=== PATIENT | male | born 1955 | race Caucasian/White ===

== ENCOUNTER 2016-07-16 10:29 | Inpatient (IN) | payer OTHER ==
[2016-07-16 10:37] VITALS: BMI 27.2
--- NOTE | 2016-07-16 10:49 | PDOC ---
History of Present Illness - General History Source: Patient, EMS Exam Limitations: No Limitations - History of Present Illness Initial Comments: 07/16/16 11:03 The patient is a 60 year old male, from [facility], with a significant past medical history of Type 2 diabetes(on lantus) HTN, neuropathy, cervical spinal stenosis, CKD (RTA4), and depression who presents to the ED, via EMS, s/ p loss of consciousness. The patient reports a blood sugar level of 94 this morning and was given lantus. Later the patient reports he was sitting in his chair waiting to get breakfast when he had a sudden onset of dizziness and loss consciousness. As per EMS, the patient had a blood sugar level of 30 upon their arrival to [facility] was urnesponsive and was diaphoretic. EMS gave the patient a bag of D10 and the patient became more responsive. Patient reports right sided chest pain, tremors and stiffness, that started en route to the ED. The patient also reports a chronic cough in the evening, but it is not worsened than usual. Denies changes in vision. Denies neck pain or back pain. Denies shortness of breath or palpitations. Denies abdominal pain, nausea, vomiting, or diarrhea. Denies fevers or chills. Denies any other symptoms. <Leann Fan - Last Filed: 07/16/16 13:28> <Trang Butts - Last Filed: 07/16/16 21:13> <Galo Clark - Last Filed: 07/20/16 09:14> - General Chief Complaint: Blood Sugar Problem Stated Complaint: Altered Mental Status Time Seen by Provider: 07/16/16 10:38 Past History <Leann Fan - Last Filed: 07/16/16 13:28> <Trang Butts - Last Filed: 07/16/16 21:13> - Past Medical History Cardiac Disorders: Yes (CAD) Diabetes: Yes HTN: Yes Other medical history: renal tubular acidosis - Psycho/Social/Smoking Cessation Hx Suicidal Ideation: No Smoking History: Unknown if ever smoked Hx Alcohol Use: Yes (QUIT IN 2005) Substance Use Type: Alcohol Hx Substance Use Treatment: No <Galo Clark - Last Filed: 07/20/16 09:14> - Past Medical History Allergies/Adverse Reactions: Allergies Allergy/AdvReac Type Severity Reaction Status Date / Time No Known Drug Allergies Allergy Verified 03/03/16 09:26 Home Medications: Ambulatory Orders Amlodipine Besylate [Norvasc -] 10 mg PO DAILY 03/02/16 Calcitriol [Calcitriol -] 0.25 mcg PO DAILY 03/02/16 Clonidine HCl 0.1 mg PO TID 03/02/16 Furosemide [Lasix -] 40 mg PO DAILY 03/02/16 Gabapentin [Neurontin] 300 mg PO BID 03/02/16 Hypromellose 0.5% Opth Soln [Artificial Tears] 1 drop OU PRN PRN 03/02/16 Insulin Glargine,Hum.rec.anlog [Lantus Solostar PEN -] 36 units SQ DAILY Latanoprost 0.005% Eye Drops [Xalatan 0.005% Eye Drops -] 1 drop OU HS 03/02/16 Meclizine HCl [Antivert -] 12.5 mg PO PRN PRN 03/02/16 Multivitamins [Multivit ([facility] Formulary)] 1 tab PO DAILY 03/02/16 Pantoprazole Sodium [Protonix] 40 mg PO DAILY 03/02/16 Acetaminophen [Tylenol Extra Strength] 500 mg PO PRN PRN #0 03/03/16 Ammonium Lactate Cream [Lac-Hydrin 12% Cream -] 0.01 unit TP DAILY 07/16/16 Bacitracin - [Bacitracin Topical Ointment -] 1 applic TP DAILY 07/16/16 Duloxetine HCl [Cymbalta] 30 mg PO DAILY 07/16/16 Hydrocodone/Acetaminophen [Hydrocodon-Acetaminoph 7.5-325] 0 each PO Q6H MDD 4 07/16/16 Lactulose [Cephulac -] 30 ml PO DAILY 07/16/16 Linagliptin [Tradjenta] 5 mg PO DAILY 07/16/16 Sodium Polystyrene Sulfonate 15 gm PO DAILY 07/16/16 Synalar Ts 0.01% Kit 0.01 drop TP DAILY 07/16/16 Review of Systems - Review of Systems Able to Perform ROS?: Yes Comments:: 07/16/16 11:03 CONSTITUTIONAL: No reported: Fever, Chills, Diaphoresis, Generalized Weakness, Malaise, Loss of Appetite HEENT: No reported: Rhinorrhea, Nasal Congestion, Throat Pain, Throat Swelling, Difficulty Swallowing, Mouth Swelling, Ear Pain, Eye Pain, Visual Changes CARDIOVASCULAR: + chest pain No reported: Palpitations, Irregular Heart Rate, Lightheadedness, Peripheral Edema RESPIRATORY: +chronic evening cough No reported: Shortness of Breath, SOB with Exertion, Orthopnea, Wheezing, Stridor, Hemoptysis GASTROINTESTINAL: No reported: Abdominal pain, Abdominal Distension, Nausea, Vomiting, Diarrhea, Constipation, Melena, Hematochezia GENITOURINARY: No reported: Dysuria, Frequency, Urgency, Hesitancy, Flank Pain, Genital Pain MUSCULOSKELETAL: No reported: Myalgia, Arthralgia, Joint Swelling, Back pain, Neck Pain SKIN: No reported: Rash, Itching, Pallor HEMEATOLOGIC/IMMUNOLOGIC: No reported: Easy Bleeding, Easy Bruising, Lymphadenopathy, Frequent infections ENDOCRINE: No reported: Unexplained Weight Gain, Unexplained Weight Loss, Heat Intolerance , Cold Intolerance NEUROLOGIC: + loss of consciousness, tremors No reported: Headache, Focal Weakness, Paresthesias, Vertigo, Lightheadedness, Unsteady Gait, Seizure, Mental Status Changes, Incontinence PSYCHIATRIC: No reported: Anxiety, Depression All Other Systems: Reviewed and Negative <Leann Fan - Last Filed: 07/16/16 13:28> *Physical Exam - Vital Signs Last Vital Signs Temp Pulse Resp BP Pulse Ox 98.4 F 80 18 165/80 100 07/16/16 10:33 07/16/16 10:33 07/16/16 10:33 07/16/16 10:33 07/16/16 10:33 - Physical Exam Comments: 07/16/16 11:04 GENERAL: The patient is awake, alert, and fully oriented, Nontoxic - in no acute distress. HEAD: Normocephalic, atraumatic. EYES: extraocular movements intact, sclera anicteric, conjunctiva clear, pupils 2mm bilaterally. ENT: Normal voice, Moist mucous membranes. NECK: Normal range of motion, supple LUNGS: Breath sounds equal, clear to auscultation bilaterally. No wheezes, no rhonchi, no rales. HEART: Regular rate and rhythm, normal S1 and S2 without murmur, rub or gallop. ABDOMEN: Soft, nontender, normoactive bowel sounds. No guarding, no rebound. . No CVA tenderness EXTREMITIES: atrophy of intrinsic hand muscles R>L, R foot drop (brace in place) , NEUROLOGICAL: No facial assymetry, Normal speech, tremulous, PSYCH: Normal mood, normal affect. SKIN: Warm, Dry, normal turgor, <Leann Fan - Last Filed: 07/16/16 13:28> - Vital Signs Last Vital Signs Temp Pulse Resp BP Pulse Ox 97.7 F 73 19 163/89 97 07/16/16 19:49 07/16/16 19:49 07/16/16 19:49 07/16/16 19:49 07/16/16 19:49 <Trang Butts - Last Filed: 07/16/16 21:13> - Vital Signs Last Vital Signs Temp Pulse Resp BP Pulse Ox 98.4 F 80 18 165/80 100 07/16/16 10:33 07/16/16 10:33 07/16/16 10:33 07/16/16 10:33 07/16/16 10:33 <Galo Clark - Last Filed: 07/20/16 09:14> Heart Score/ECG Review - ECG Impressions Comment:: 07/16/16 11:04 Twelve-lead EKG was performed and reviewed by me. There is normal sinus rhythm with a normal rate. Rate of 75 The axis is normal. Q waves in lead 3 T wave inversion in aVL 07/16/16 16:49 Twelve-lead EKG was performed and reviewed by me. There is normal sinus rhythm with a normal rate. Rate of 75 The axis is normal. T wave inversion in aVL No significant changes when compared with prior EKG <Galo Clark - Last Filed: 07/20/16 09:14> ED Treatment Course - LABORATORY CBC & Chemistry Diagram: 07/16/16 10:43 07/16/16 10:43 - ADDITIONAL ORDERS Additional order review: 07/16/16 10:43 RBC 4.66 MCV 95.3 MCHC 32.9 RDW 13.8 MPV 10.1 Neutrophils % 69.2 Lymphocytes % 20.7 Monocytes % 7.2 Eosinophils % 2.4 Basophils % 0.5 - RADIOLOGY Radiograph Interpretation: 07/16/16 11:09 RAD/CHEST X-RAY PORTABLE Impression: No evidence of active pulmonary disease. Reported by: Marin Gonzales <Leann Fan - Last Filed: 07/16/16 13:28> - LABORATORY CBC & Chemistry Diagram: 07/16/16 10:43 07/16/16 10:43 - ADDITIONAL ORDERS Additional order review: Laboratory Results 07/16/16 07/16/16 07/16/16 20:21 17:00 12:19 INR Sodium Potassium Chloride Carbon Dioxide Anion Gap BUN Creatinine Creat Clearance w eGFR POC Glucometer [phone] Random Glucose Calcium Magnesium Total Bilirubin AST ALT Alkaline Phosphatase Creatine Kinase 140 Creatine Kinase Index CK-MB (CK-2) CK-MB (CK-2) Rel Index Troponin I 0.18 H D Total Protein Albumin 07/16/16 07/16/16 07/16/16 10:43 10:43 10:43 INR 0.97 Sodium Potassium Chloride Carbon Dioxide Anion Gap BUN Creatinine Creat Clearance w eGFR POC Glucometer Random Glucose Calcium Magnesium 2.2 Total Bilirubin AST ALT Alkaline Phosphatase Creatine Kinase Creatine Kinase Index CK-MB (CK-2) CK-MB (CK-2) Rel Index Cancelled Troponin I Total Protein Albumin 07/16/16 10:43 INR Sodium 141 Potassium 3.4 L Chloride 103 Carbon Dioxide 25 Anion Gap 13 BUN 31 H Creatinine 2.9 H Creat Clearance w eGFR 22.31 POC Glucometer Random Glucose 75 Calcium 8.5 Magnesium Total Bilirubin 0.4 AST 19 ALT 22 Alkaline Phosphatase 89 Creatine Kinase 151 Creatine Kinase Index 1.4 CK-MB (CK-2) 2.264 CK-MB (CK-2) Rel Index Troponin I < 0.02 Total Protein 8.0 Albumin 4.0 07/16/16 07/16/16 07/16/16 20:21 12:19 10:43 RBC 4.66 MCV 95.3 MCHC 32.9 RDW 13.8 MPV 10.1 Neutrophils % 69.2 Lymphocytes % 20.7 Monocytes % 7.2 Eosinophils % 2.4 Basophils % 0.5 POC Glucometer [phone] - Medications Given in the ED: ED Medications Discontinued Medications Generic Name Dose Route Start Last Admin Trade Name Freq PRN Reason Stop Dose Admin Aspirin 162 mg 07/16/16 18:14 07/16/16 18:27 Asa - PO 07/16/16 18:15 162 mg ONCE ONE Administration <Trang Butts - Last Filed: 07/16/16 21:13> - LABORATORY CBC & Chemistry Diagram: 07/18/16 06:02 07/20/16 05:35 - RADIOLOGY Radiology Studies Ordered: Category Date Time Status CHEST X-RAY PORTABLE* [RAD] Stat Radiology 07/16/16 10:44 Ordered <Galo Clark - Last Filed: 07/20/16 09:14> Medical Decision Making - Medical Decision Making 07/16/16 13:28 Case discussed with Jayne Leigh at 12:40. <Leann Fan - Last Filed: 07/16/16 13:28> - Medical Decision Making 07/16/16 10:47 60y M hx of spinal stenosis, dm2, depression, glaucoma, RTA4, presents with episode of nonresponsiveness. Per EMS and patient report, the patient was found unresponsive this morning, upon EMS arrival, his BGM was 30 and he was diaphoretic and responded to D10. The patient was noted to be mildly hypoxic to 93% on RA and he does complain of a chornic night cough but isnt really worse than usual, the pt did have some R sided chest pain that started enrout to the hospital. On exam the pt is alert/oriented, had some chronic atrophy of his intrinsic hand muscles. Exam otherwise unremarakble. differential for the patients ams - likely hypoglycemia, unclear trigger -?no infectious complaints - but will send a UA, will ck trops, ekg, labs, cxr will monitor bgm 07/16/16 12:43 The pts blood work is notable for cr of 2.9 - ua/tox pending pts bgm is holding up case dw dr. Del Rio (PMD) states pt has ckd and his cr is in the 2-3 range will obtain 2nd trop, and repeat bgm - if normal, will d/c without patient management 07/16/16 18:13 second 2kg unchanged trop trending higher, at 0.18 will admit to obs for further management currently cp free <Galo Clark - Last Filed: 07/20/16 09:14> *DC/Admit/Observation/Transfer - Attestations Scribe Attestion: 07/16/16 11:04 Documentation prepared by Leann Fan, acting as emergency medical technician basic for Galo Clark MD <Leann Fan - Last Filed: 07/16/16 13:28> - Discharge Dispostion Admit: Yes <Trang Butts - Last Filed: 07/16/16 21:13> <Galo Clark - Last Filed: 07/20/16 09:14> Diagnosis at time of Disposition: Chest pain, CKD (chronic kidney disease) Diabetes mellitus Qualifiers: Diabetes mellitus type: type 2 Diabetes mellitus complication status: without complication Diabetes mellitus rat exterminator insulin use: without rat exterminator use Qualified Code(s): E11.9 - Type 2 diabetes mellitus without complications - Referrals
[2016-07-16 10:57] LABS: BASOPHIL 0.5 % (0-2.0); EOSINOPHIL 2.4 % (0-4.5); MCH 31.4 pg (25.7-33.7); MCHC 32.9 g/dl (32.0-35.9); MEAN CELL VOLUME 95.3 fl (80-96); MEAN PLT VOLUME 10.1 fl (7.5-11.1); NEUTROPHILS 69.2 % (42.8-82.8); PLATELET COUNT 160 K/MM3 (134-434); RDW 13.8 % (11.9-15.9); WHITE BLOOD COUNT 8.5 K/mm3 (4.0-10.0)
[2016-07-16 11:12] LABS: INR 0.97 (0.82-1.09); PROTHROMBIN TIME (PATIENT) 10.7 SEC (9.98-11.88)
--- NOTE | 2016-07-16 11:45 | EKG ---
Test Reason : Blood Pressure : / mmHG Vent. Rate : 075 BPM Atrial Rate : 075 BPM P-R Int : 168 ms QRS Dur : 094 ms QT Int : 416 ms P-R-T Axes : 042 009 096 degrees QTc Int : 464 ms NORMAL SINUS RHYTHM INFERIOR INFARCT , AGE UNDETERMINED ABNORMAL ECG NO PREVIOUS ECGS AVAILABLE Confirmed by MING MALIK MD ([id number]) on 07/16/2016 11:45:16 AM Referred By: Confirmed By:MING MALIK MD
[2016-07-16 11:48] LABS: ANION GAP 13 (8-16); CALCIUM 8.5 mg/dL (8.5-10.1); CO2 25 mmol/L (21-32); CREATININE 2.9 mg/dL (0.7-1.3); GLUCOSE,RANDOM 75 mg/dL (74-106); SGOT/AST 19 U/L (15-37); SGPT/ALT 22 U/L (12-78)
[2016-07-16 11:51] LABS: ALK PHOS 89 U/L (45-117); BILIRUBIN,TOTAL 0.4 mg/dL (0.2-1.0); TROPONIN I < 0.02 ng/ml (0.00-0.05)
[2016-07-16 18:07] LABS: TROPONIN I 0.18 ng/ml (0.00-0.05)
[2016-07-16] MEDS ORDERED: ASPIRIN 81 MG CHEWABLE TABLETS PO ONE (18:14)
[2016-07-16] MEDS ORDERED: ASPIRIN COATED 81 MG TABLET.EC ONE (18:23)
--- NOTE | 2016-07-16 19:49 | HP ---
CHIEF COMPLAINT: Unresponsive, Chest Pain PCP: Dr. Essence Del Rio [phone] HCP: Sharon Maldonado (sister) [phone] HISTORY OF PRESENT ILLNESS: This is a 60 y/o male with a past medical history of IDDM, HTN, CKD (RTA4), Cervical Spinal Stenosis, Neuropathy, R- Foot Drop, Atrophy, Depression. Who presents to the emergency department from [facility] unresponsive, FS 30, D10 given by EMS.The patient reports having a blood sugar level of 94 this morning and was given lantus. Later the patient reports he was sitting in his chair waiting to get breakfast when he had a sudden onset of dizziness and loss consciousness. The patient reports having left sided chest/rib pain x 1 month worse when he coughs, he reports using bengay with some relief. Patient reports having a non-productive dry cough, without subjective fever or chills. Patient denies SOB, AP, N/V/D, constipation, dysuria ER course was notable for: (1) Trop 0.02~ 0.18 (2) EKG- NSR 75bpm, inferior infarct, age undetermined (3) Glucose 75 Recent Travel: None PAST MEDICAL HISTORY: IDDM HTN CKD (RTA4) Cervical Spinal Stenosis Neuropathy Depression PAST SURGICAL HISTORY: R- heel Social History: Smoking: Former 2005 Alcohol: None Drugs: None Resides in Assisted Living Facility Family History: Father: Diabetes age 65 Mother: Arthritis age 81 Allergies No Known Drug Allergies Allergy (Verified 03/03/16 09:26) HOME MEDICATIONS: Home Medications Medication Instructions Recorded Amlodipine Besylate [Norvasc -] 10 mg PO DAILY 03/02/16 Calcitriol [Calcitriol -] 0.25 mcg PO DAILY 03/02/16 Clonidine HCl 0.1 mg PO TID 03/02/16 Furosemide [Lasix -] 40 mg PO DAILY 03/02/16 Gabapentin [Neurontin] 300 mg PO BID 03/02/16 Hypromellose 0.5% Opth Soln 1 drop OU PRN PRN 03/02/16 [Artificial Tears] Insulin Glargine,Hum.rec.anlog 36 units SQ DAILY 03/02/16 [Lantus Solostar PEN -] Latanoprost 0.005% Eye Drops 1 drop OU HS 03/02/16 [Xalatan 0.005% Eye Drops -] Meclizine HCl [Antivert -] 12.5 mg PO PRN PRN 03/02/16 Multivitamins [Multivit ([facility] 1 tab PO DAILY 03/02/16 Formulary)] Pantoprazole Sodium [Protonix] 40 mg PO DAILY 03/02/16 Acetaminophen [Tylenol Extra 500 mg PO PRN PRN #0 03/03/16 Strength] Ammonium Lactate Cream [Lac-Hydrin 0.01 unit TP DAILY 07/16/16 12% Cream -] Bacitracin - [Bacitracin Topical 1 applic TP DAILY 07/16/16 Ointment -] Duloxetine HCl [Cymbalta] 30 mg PO DAILY 07/16/16 Hydrocodone/Acetaminophen 0 each PO Q6H MDD 4 07/16/16 [Hydrocodon-Acetaminoph 7.5-325] Lactulose [Cephulac -] 30 ml PO DAILY 07/16/16 Linagliptin [Tradjenta] 5 mg PO DAILY 07/16/16 Sodium Polystyrene Sulfonate 15 gm PO DAILY 07/16/16 Synalar Ts 0.01% Kit 0.01 drop TP DAILY 07/16/16 REVIEW OF SYSTEMS CONSTITUTIONAL: Absent: fever, chills, diaphoresis, generalized weakness, malaise, loss of appetite, weight change HEENT: Absent: rhinorrhea, nasal congestion, throat pain, throat swelling, difficulty swallowing, mouth swelling, ear pain, eye pain, visual changes CARDIOVASCULAR: chest pain Absent: syncope, palpitations, irregular heart rate, lightheadedness, peripheral edema RESPIRATORY: cough Absent: shortness of breath, dyspnea with exertion, orthopnea, wheezing, stridor , hemoptysis GASTROINTESTINAL: Absent: abdominal pain, abdominal distension, nausea, vomiting, diarrhea, constipation, melena, hematochezia GENITOURINARY: Absent: dysuria, frequency, urgency, hesitancy, hematuria, flank pain, genital pain MUSCULOSKELETAL: Absent: myalgia, arthralgia, joint swelling, back pain, neck pain SKIN: Absent: rash, itching, pallor HEMATOLOGIC/IMMUNOLOGIC: Absent: easy bleeding, easy bruising, lymphadenopathy, frequent infections ENDOCRINE: Absent: unexplained weight gain, unexplained weight loss, heat intolerance, cold intolerance NEUROLOGIC: dizziness, unresponsive Absent: headache, focal weakness or paresthesias, unsteady gait, seizure, mental status changes, bladder or bowel incontinence PSYCHIATRIC: Absent: anxiety, depression, suicidal or homicidal ideation, hallucinations. PHYSICAL EXAMINATION Vital Signs - 24 hr 07/16/16 07/16/16 10:31 10:33 Temperature 98.4 F Pulse Rate 80 Respiratory 18 Rate Blood Pressure 165/80 O2 Sat by Pulse 97 100 Oximetry (%) GENERAL: Awake, alert, and fully oriented, in no acute distress. HEAD: Normal with no signs of trauma. EYES: Pupils equal, round and reactive to light, extraocular movements intact, sclera anicteric, conjunctiva clear. No lid lag. EARS, NOSE, THROAT: Ears normal, nares patent, oropharynx clear without exudates. Moist mucous membranes. NECK: Normal range of motion, supple without lymphadenopathy, JVD, or masses. LUNGS: Breath sounds equal, clear to auscultation bilaterally. No wheezes, and no crackles. No accessory muscle use. HEART: Regular rate and rhythm, normal S1 and S2 without murmur, rub or gallop. reproducible left sided CP upon palpation ABDOMEN: Soft, nontender, not distended, normoactive bowel sounds, no guarding, no rebound, no masses. No hepatomegaly or splenomegaly. MUSCULOSKELETAL: Normal range of motion at all joints. No bony deformities or tenderness. No CVA tenderness. UPPER EXTREMITIES: 2+ pulses, warm, well-perfused. No cyanosis. No clubbing. No peripheral edema. LOWER EXTREMITIES: 2+ pulses, warm, well-perfused. No calf tenderness. No peripheral edema. NEUROLOGICAL: Cranial nerves II-XII intact. Normal speech. Gait not observed, + right foot drop. PSYCHIATRIC: Cooperative. Good eye contact. Appropriate mood and affect. SKIN: Warm, dry, normal turgor, no rashes or lesions noted, normal capillary refill. Laboratory Results - last 24 hr 07/16/16 07/16/16 07/16/16 10:43 10:43 10:43 WBC 8.5 RBC 4.66 Hgb 14.6 Hct 44.4 MCV 95.3 MCHC 32.9 RDW 13.8 Plt Count 160 MPV 10.1 Neutrophils % 69.2 Lymphocytes % 20.7 Monocytes % 7.2 Eosinophils % 2.4 Basophils % 0.5 INR 0.97 Sodium 141 Potassium 3.4 L Chloride 103 Carbon Dioxide 25 Anion Gap 13 BUN 31 H Creatinine 2.9 H Creat Clearance w eGFR 22.31 POC Glucometer Random Glucose 75 Calcium 8.5 Magnesium Total Bilirubin 0.4 AST 19 ALT 22 Alkaline Phosphatase 89 Creatine Kinase 151 Creatine Kinase Index 1.4 CK-MB (CK-2) 2.264 CK-MB (CK-2) Rel Index Troponin I < 0.02 Total Protein 8.0 Albumin 4.0 07/16/16 07/16/16 07/16/16 10:43 10:43 12:19 WBC RBC Hgb Hct MCV MCHC RDW Plt Count MPV Neutrophils % Lymphocytes % Monocytes % Eosinophils % Basophils % INR Sodium Potassium Chloride Carbon Dioxide Anion Gap BUN Creatinine Creat Clearance w eGFR POC Glucometer [phone] Random Glucose Calcium Magnesium 2.2 Total Bilirubin AST ALT Alkaline Phosphatase Creatine Kinase Creatine Kinase Index CK-MB (CK-2) CK-MB (CK-2) Rel Index Cancelled Troponin I Total Protein Albumin 07/16/16 17:00 WBC RBC Hgb Hct MCV MCHC RDW Plt Count MPV Neutrophils % Lymphocytes % Monocytes % Eosinophils % Basophils % INR Sodium Potassium Chloride Carbon Dioxide Anion Gap BUN Creatinine Creat Clearance w eGFR POC Glucometer Random Glucose Calcium Magnesium Total Bilirubin AST ALT Alkaline Phosphatase Creatine Kinase 140 Creatine Kinase Index CK-MB (CK-2) CK-MB (CK-2) Rel Index Troponin I 0.18 H D Total Protein Albumin ASSESSMENT/PLAN: 60 y/o male with a PMHx of: IDDM, HTN, HLD, CKD (RTA4),, Cervical Spinal Stenosis Neuropathy, R- Foot Drop, Atrophy. Placed in Tele Observation for Chest Pain r/o ACS, Elevated Troponin, Hypoglycemia for further evaluation of their emergent condition. Problem List - Problem (1) Chest pain Assessment/Plan: - r/o ACS - Telemetry - HEART Score 5 - Serial Enzymes - Appreciate Cardiology Consult - Asa given in ED - Continue Asa - BB - HgbA1C - Repeat EKG in am - Echo Code(s): R07.9 - CHEST PAIN, UNSPECIFIED (2) Hypoglycemia Assessment/Plan: - Likely secondary to medication - Given D10 in field - Glucose levels normalized - Monitor BGMs Code(s): E16.2 - HYPOGLYCEMIA, UNSPECIFIED (3) Diabetes mellitus Assessment/Plan: - BGMs - ISS - 1800 ADA Diet Code(s): E11.9 - TYPE 2 DIABETES MELLITUS WITHOUT COMPLICATIONS (4) HTN (hypertension) Assessment/Plan: - Monitor BP - Continue home meds - Low Na Diet - Monitor renal function Code(s): I10 - ESSENTIAL (PRIMARY) HYPERTENSION (5) Neuropathy due to type 2 diabetes mellitus Code(s): E11.40 - TYPE 2 DIABETES MELLITUS WITH DIABETIC NEUROPATHY, UNSP (6) Depression Assessment/Plan: - Continue home medication Code(s): F32.9 - MAJOR DEPRESSIVE DISORDER, SINGLE EPISODE, UNSPECIFIED (7) CKD (chronic kidney disease) Assessment/Plan: - at baseline 2.5-2.6 - renal US done 05/2016- reviewed - Monitor BMP Code(s): N18.9 - CHRONIC KIDNEY DISEASE, UNSPECIFIED (8) Cervical spinal stenosis Assessment/Plan: - Continue home med Code(s): M48.02 - SPINAL STENOSIS, CERVICAL REGION (9) DVT prophylaxis Assessment/Plan: - SCDs - Heparin SQ Code(s): [id number] - Visit type - Emergency Visit Emergency Visit: Yes ED Registration Date: 07/16/16 Care time: The patient presented to the Emergency Department on the above date and was hospitalized for further evaluation of their emergent condition. - New Patient This patient is new to me today: Yes Date on this admission: 07/16/16 - Critical Care Critical Care patient: No
[2016-07-16] MEDS ORDERED: INSULIN REGULAR HUMAN 100 UNITS/ML *VIAL ONE (20:44)
[2016-07-16] MEDS: INSULIN SLIDING SCALE (NOVOLOG) 1 VIAL SQ SCH (20:59)
[2016-07-17 00:41] LABS: URINE APPEARANCE CLEAR; URINE BILIRUBIN NEGATIVE (NEGATIVE); URINE BLOOD NEGATIVE (NEGATIVE); URINE COLOR STRAW; URINE GLUCOSE (UA) 3+ (NEGATIVE); URINE KETONE NEGATIVE (NEGATIVE); URINE LEUK ESTERASE NEGATIVE (NEGATIVE); URINE NITRITE NEGATIVE (NEGATIVE); URINE PROTEIN NEGATIVE (NEGATIVE); URINE UROBILINOGEN NEGATIVE E.U./dl (0.2-1.0)
[2016-07-17] MEDS ORDERED: ACETAMINOPHEN 500 MG TABLET (FP) PO PRN (00:50)
[2016-07-17] MEDS ORDERED: cloNIDine HCL 0.1 MG TABLET PO SCH ×2 (06:00→22:00)
[2016-07-17] MEDS: INSULIN SLIDING SCALE (NOVOLOG) 1 VIAL SQ SCH ×4 (06:32→22:11)
[2016-07-17 08:12] LABS: BASOPHIL 0.4 % (0-2.0); MCHC 33.6 g/dl (32.0-35.9); MEAN CELL VOLUME 95.3 fl (80-96); MEAN PLT VOLUME 10.1 fl (7.5-11.1); NEUTROPHILS 69.3 % (42.8-82.8); PLATELET COUNT 147 K/MM3 (134-434); RDW 13.7 % (11.9-15.9); WHITE BLOOD COUNT 7.8 K/mm3 (4.0-10.0)
[2016-07-17] MEDS: MULTIVITAMINS (DAILY MVI) TABLET (FP) PO SCH (09:02)
[2016-07-17] MEDS: PANTOPRAZOLE 40 MG TABLET (FP) PO SCH (09:03)
[2016-07-17] MEDS: GABAPENTIN 300 MG CAPSULE (FP) PO SCH ×2 (09:03→22:11)
[2016-07-17] MEDS: amLODIPine BESYLATE 10 MG TABLET (FP) PO SCH (09:04)
[2016-07-17] MEDS: FUROSEMIDE 40 MG TABLET (FP) PO SCH (09:04)
[2016-07-17] MEDS: DULoxetine HCL 30 MG CAPSULE.DR (FP) PO SCH (09:04)
[2016-07-17] MEDS: HEPARIN NA (PORCINE) 5,000 UNITS/ML 1ML VIAL SQ SCH ×2 (09:04→22:11)
[2016-07-17] MEDS: ASPIRIN 81 MG CHEWABLE TABLETS PO SCH (09:04)
[2016-07-17] MEDS: CALCITRIOL 0.25 MCG CAPSULE (FP) PO SCH (09:05)
[2016-07-17 10:16] LABS: TROPONIN I 0.13 ng/ml (0.00-0.05)
--- NOTE | 2016-07-17 10:46 | PN ---
Progress Note (short form) - Note Progress Note: Chief Complaint: Events noted, notes reviewed, Complaining of left sided chest pain, intermittent, denies any dyspnea History of Present Illness: Seen and examined on telemetry. Full consult - Current Medication List Current Medications Acetaminophen (Tylenol -) 500 mg PO Q6H PRN PRN Reason: PAIN Amlodipine Besylate (Norvasc -) 10 mg PO DAILY [facility] Last Admin: 07/17/16 09:04 Dose: 10 mg Aspirin (Asa -) 81 mg PO DAILY [facility] Last Admin: 07/17/16 09:04 Dose: 81 mg Bacitracin (Bacitracin -) 1 applic TP DAILY [facility] Calcitriol (Rocaltrol -) 0.25 mcg PO DAILY [facility] Last Admin: 07/17/16 09:05 Dose: 0.25 mcg Clonidine (Catapres -) 0.1 mg PO TID [facility] Last Admin: 07/17/16 06:09 Dose: 0.1 mg Duloxetine HCl (Cymbalta -) 30 mg PO DAILY [facility] Last Admin: 07/17/16 09:04 Dose: 30 mg Furosemide (Lasix -) 40 mg PO DAILY [facility] Last Admin: 07/17/16 09:04 Dose: 40 mg Gabapentin (Neurontin -) 300 mg PO BID [facility] Last Admin: 07/17/16 09:03 Dose: 300 mg Heparin Sodium (Porcine) (Heparin -) 5,000 unit SQ BID [facility] Last Admin: 07/17/16 09:04 Dose: 5,000 unit Insulin Aspart (Novolog Vial Sliding Scale -) 0 vial SQ ACHS [facility] PRN Reason: Protocol Last Admin: 07/17/16 06:32 Dose: Not Given Latanoprost (Xalatan 0.005% Eye Drops -) 1 drop OU HS [facility] Multivitamins/Minerals/Vitamin C (Tab-A-Vit -) 1 tab PO DAILY [facility] Last Admin: 07/17/16 09:02 Dose: 1 tab Pantoprazole Sodium (Protonix -) 40 mg PO DAILY [facility] Last Admin: 07/17/16 09:03 Dose: 40 mg - Review of Systems Cardiovascular: As noted above Respiratory: denies: Cough or Sputum Production Gastrointestinal: denies: Nausea, Vomiting, Diarrhea, Constipation or Abdominal Pain Musculoskeletal: No symptoms reported Neurological: Foot drop and spinal stenosis - Objective Vital Signs: Last Vital Signs Temp Pulse Resp BP Pulse Ox 98 F 70 16 144/68 98 07/17/16 09:30 07/17/16 09:30 07/17/16 09:30 07/17/16 09:30 07/16/16 23:35 Neck: Supple Negative JVD Cardiovascular: S1 S2 Regular Rate Rhythm Respiratory: Clear to A&P Gastrointestinal: Soft Benign Normal Bowel Sounds Ext: Negative Edema Labs: CBC, BMP 07/17/16 06:07 07/16/16 10:43 Hepatic Panel Total Bilirubin 0.4 mg/dL (0.2-1.0) 07/16/16 10:43 AST 19 U/L (15-37) 07/16/16 10:43 ALT 22 U/L (12-78) 07/16/16 10:43 Alkaline Phosphatase 89 U/L (45-117) 07/16/16 10:43 Albumin 4.0 g/dl (3.4-5.0) 07/16/16 10:43 Troponin, BNP 07/16/16 07/16/16 07/17/16 10:43 17:00 00:01 Troponin I < 0.02 0.18 H D 0.21 H 07/17/16 07/17/16 06:07 06:07 Troponin I 0.13 H D Cancelled Assessment/Plan ASSESSMENT: 1. Chest pain syndrome, CAD angina pectoris with borderline Troponin I elevation not indicative of ACS clinically, no EKG acute changes 2. Diastolic LV dysfunction with class 0-I NYHA classification LV failure 3. IDDM 4. HTN 5. Hypercholesterolemia 6. Cervical Spinal Stenosis 7. CKD 8. Neuropathy PLAN: 1. Add B-Blockers, Coreg 2. Continue Norvasc and Clonidine 3. Ideally should be on ACEI or ARBS unless contraindicated, pending renal function stabilization 4. Continue PO Lasix 5. Continue ASA 6. Echocardiography for evaluation of LV function 7. Pharmacologic MPI study to evaluate CAD/ischemia severity Aaliyah Light MD
[2016-07-17] MEDS: CARVEDILOL 6.25 MG TABLET (FP) PO SCH ×2 (11:30→22:11)
--- NOTE | 2016-07-17 12:14 | EKG ---
Test Reason : Blood Pressure : / mmHG Vent. Rate : 066 BPM Atrial Rate : 066 BPM P-R Int : 176 ms QRS Dur : 086 ms QT Int : 414 ms P-R-T Axes : 036 027 098 degrees QTc Int : 434 ms NORMAL SINUS RHYTHM POSSIBLE INFERIOR INFARCT , AGE UNDETERMINED ABNORMAL ECG WHEN COMPARED WITH ECG OF 16-JUL-2016 16:41, BORDERLINE CRITERIA FOR INFERIOR INFARCT ARE NOW PRESENT Confirmed by DINAH REGAN MD ([id number]) on 07/17/2016 12:14:05 PM Referred By: Confirmed By:DINAH REGAN MD
--- NOTE | 2016-07-17 12:21 | EKG ---
Test Reason : Blood Pressure : / mmHG Vent. Rate : 075 BPM Atrial Rate : 075 BPM P-R Int : 174 ms QRS Dur : 086 ms QT Int : 394 ms P-R-T Axes : 040 -06 091 degrees QTc Int : 439 ms NORMAL SINUS RHYTHM WITH SINUS ARRHYTHMIA ABNORMAL QRS-T ANGLE, CONSIDER PRIMARY T WAVE ABNORMALITY ABNORMAL ECG WHEN COMPARED WITH ECG OF 16-JUL-2016 10:50, CRITERIA FOR INFERIOR INFARCT ARE NO LONGER PRESENT Confirmed by DINAH REGAN MD ([id number]) on 07/17/2016 12:20:46 PM Referred By: Confirmed By:DINAH REGAN MD
[2016-07-17 12:32] LABS: CALCIUM 8.3 mg/dL (8.5-10.1); CREATININE 2.4 mg/dL (0.7-1.3); PHOSPHOROUS 2.5 mg/dL (2.5-4.9)
--- NOTE | 2016-07-17 13:59 | CONS ---
DATE OF CONSULTATION: 07/17/2016 Consultation requested by hospitalist. CHIEF COMPLAINT: Evaluation of chest discomfort, elevated troponin I. History was obtained from the patient. A 60-year-old male of descent, with known history of probable diastolic left ventricular dysfunction, with class 0 [place] [employer] classification left ventricular failure, hypertensive cardiovascular disease, insulin-dependent diabetes mellitus, hypercholesterolemia, cervical spinal stenosis, chronic kidney disease, peripheral neuropathy, right foot drop, who presented to [facility] with unresponsiveness, and he was noted to have hypoglycemia. The patient in addition was noted to have elevated troponin I. The patient has been complaining of left-sided chest wall discomfort, which has been noted for the last several days, exacerbated by cough or deep inspiration. The patient denied any dyspnea, orthopnea, paroxysmal nocturnal dyspnea, or peripheral edema. The patient denied any palpitations, dizziness, lightheadedness. The patient reports fatigue and tiredness. PAST MEDICAL HISTORY: Probable diastolic left ventricular dysfunction, with class 0 [place] [employer] classification left ventricular failure; hypertensive cardiovascular disease; diabetes mellitus; hypercholesterolemia; cervical spinal stenosis; chronic kidney disease; peripheral neuropathy. PAST SURGICAL HISTORY: Right heel surgery for management of an abscess. SOCIAL HISTORY: Prior history of tobacco abuse. FAMILY HISTORY: Positive coronary artery disease. ALLERGIES: No known medical allergies. MEDICAL THERAPY: At home included Norvasc 10 mg once a day, calcitriol of 0.25 mcg once a day, clonidine 0.1 mg 3 times a day, Lasix 40 mg once a day, Neurontin 300 mg twice a day, insulin as prescribed, meclizine 12.5-mg tablet as needed for benign positional vertigo, multivitamin 1 tablet once a day, Protonix 40 mg once a day, Cymbalta 30 mg once a day, hydrocodone/acetaminophen 7.5/325 mg-tablet 1 tablet every 4 hours as needed, Tradjenta 5 mg once a day. REVIEW OF SYSTEMS: Head and neck: Denies headache, photophobia, blurring of vision. Respiratory: No cough or sputum production. Cardiovascular: As noted above. Gastrointestinal: Denies nausea, vomiting, diarrhea, abdominal discomfort. Genitourinary: No symptoms reported. Musculoskeletal: Chest wall discomfort, as noted above. PHYSICAL EXAMINATION: Vital signs: Blood pressure is 144/68 mmHg; pulse rate is 70 beats per minute. Head and neck: Pupils equal and react to light and accommodation. Extraocular muscles are intact. Anicteric sclerae. Negative JVD. No bruit appreciated. Chest: Clear to auscultation and percussion. Cardiovascular: S1, S2 regular. No murmur, clicks, or gallops. Abdomen: Soft. Benign. Normoactive bowel sounds. Extremities: Diminished distal pulses. Bilateral femoral pulses 1+ to 2+. No calf tenderness. Electrocardiogram reveals sinus rhythm, with nonspecific T-wave abnormality, and nondiagnostic inferior Q wave. CBC reveals a white cell count of 7.8, hemoglobin 13.5, platelet count 147. Basic metabolic profile reveals sodium 141, potassium 3.4, BUN of 31, creatinine 2.9, glucose 75. Troponin initially less than 0.02; repeat 0.18, 0.21 and 0.13. ASSESSMENT: 1. Chest pain syndrome, coronary artery disease, angina pectoris, with borderline troponin I elevation. Not indicative of acute coronary syndrome, clinically, since there are no electrocardiographic changes, and the above-noted presentation is atypical. 2. Diastolic left ventricular dysfunction, with class 0 to 1 [place] [employer] classification left ventricular failure. 3. Insulin-dependent diabetes mellitus. 4. Hypertensive cardiovascular disease. 5. Hypercholesterolemia. 6. Cervical spinal stenosis. 7. Chronic kidney disease. 8. History of peripheral neuropathy. RECOMMENDATIONS: 1. Addition of beta-blockers, Coreg. 2. Continuation of Norvasc therapy. 3. Ideally, the patient should be on an JAZMYN inhibitor or angiotensin-receptor ashu therapy, unless it is absolutely contraindicated, pending renal function stabilization. 4. Continuation of clonidine therapy. 5. Continuation of Lasix therapy. 6. Continuation of aspirin therapy. 7. Echocardiography for evaluation of left ventricular size and function. 8. Pharmacologic myocardial perfusion imaging study for evaluation of coronary artery disease ischemic defect severity. Thank you for the kind referral. ANGELIKA DAHL M.D. HARINI/[id number]
[2016-07-17] MEDS: BACITRACIN 30 GM TUBE TOPICAL OINTMENT TP SCH (14:20)
--- NOTE | 2016-07-17 14:29 | PN ---
Progress Note (short form) - Note Progress Note: Subjective: The patient was seen at the bedside, he states he doesn't want to talk and asked me to leave the room. Current Medications Generic Name Dose Route Start Last Admin Trade Name Jesse PRN Reason Stop Dose Admin Acetaminophen 500 mg 07/17/16 00:50 Tylenol - PO Q6H PRN PAIN Amlodipine Besylate 10 mg 07/17/16 10:00 07/17/16 09:04 Norvasc - PO 10 mg DAILY [facility] Administration Aspirin 81 mg 07/17/16 10:00 07/17/16 09:04 Asa - PO 81 mg DAILY [facility] Administration Bacitracin 1 applic 07/17/16 10:00 Bacitracin - TP DAILY [facility] Calcitriol 0.25 mcg 07/17/16 10:00 07/17/16 09:05 Rocaltrol - PO 0.25 mcg DAILY [facility] Administration Carvedilol 6.25 mg 07/17/16 11:15 07/17/16 11:30 Coreg - PO 6.25 mg BID [facility] Administration Clonidine 0.1 mg 07/17/16 22:00 Catapres - PO BID [facility] Duloxetine HCl 30 mg 07/17/16 10:00 07/17/16 09:04 Cymbalta - PO 30 mg DAILY [facility] Administration Furosemide 40 mg 07/17/16 10:00 07/17/16 09:04 Lasix - PO 40 mg DAILY [facility] Administration Gabapentin 300 mg 07/17/16 10:00 07/17/16 09:03 Neurontin - PO 300 mg BID [facility] Administration Heparin Sodium (Porcine) 5,000 unit 07/17/16 10:00 07/17/16 09:04 Heparin - SQ 5,000 unit BID [facility] Administration Insulin Aspart 0 vial 07/16/16 22:00 07/17/16 11:28 Novolog Vial Sliding Scale - SQ 4 units ACHS [facility] Administration Protocol Latanoprost 1 drop 07/17/16 22:00 Xalatan 0.005% Eye Drops - OU HS [facility] Multivitamins/Minerals/Vitamin C 1 tab 07/17/16 10:00 07/17/16 09:02 Tab-A-Vit - PO 1 tab DAILY [facility] Administration Pantoprazole Sodium 40 mg 07/17/16 10:00 07/17/16 09:03 Protonix - PO 40 mg DAILY [facility] Administration Objective: Vital Signs Period Temp Pulse Resp BP Sys/Crowell Pulse Ox Last 24 Hr 97.7 F-98.3 F 70-78 16-19 137-163/62-89 96-98 Physical Exam: Patient refused CBCD WBC 7.8 K/mm3 (4.0-10.0) 07/17/16 06:07 RBC 4.21 M/mm3 (4.00-5.60) 07/17/16 06:07 Hgb 13.5 GM/dL (11.7-16.9) 07/17/16 06:07 Hct 40.1 % (35.4-49) 07/17/16 06:07 MCV 95.3 fl (80-96) 07/17/16 06:07 MCHC 33.6 g/dl (32.0-35.9) 07/17/16 06:07 RDW 13.7 % (11.9-15.9) 07/17/16 06:07 Plt Count 147 K/MM3 (134-434) 07/17/16 06:07 MPV 10.1 fl (7.5-11.1) 07/17/16 06:07 CMP Sodium 143 mmol/L (136-145) 07/17/16 06:07 Potassium 4.2 mmol/L (3.5-5.1) D 07/17/16 06:07 Chloride 109 mmol/L (98-107) H 07/17/16 06:07 Carbon Dioxide 23 mmol/L (21-32) 07/17/16 06:07 Anion Gap 11 (8-16) 07/17/16 06:07 BUN 28 mg/dL (7-18) H 07/17/16 06:07 Creatinine 2.4 mg/dL (0.7-1.3) H 07/17/16 06:07 Creat Clearance w eGFR 22.31 (>60) 07/16/16 10:43 Random Glucose 149 mg/dL (74-106) H D 07/17/16 06:07 Calcium 8.3 mg/dL (8.5-10.1) L 07/17/16 06:07 Total Bilirubin 0.4 mg/dL (0.2-1.0) 07/16/16 10:43 AST 19 U/L (15-37) 07/16/16 10:43 ALT 22 U/L (12-78) 07/16/16 10:43 Alkaline Phosphatase 89 U/L (45-117) 07/16/16 10:43 Total Protein 8.0 g/dl (6.4-8.2) 07/16/16 10:43 Albumin 4.0 g/dl (3.4-5.0) 07/16/16 10:43 CARDIAC ENZYMES Creatine Kinase 156 IU/L (39-308) 07/17/16 06:07 Troponin I 0.13 ng/ml (0.00-0.05) H D 07/17/16 06:07 Assessment: This is a 60 year old male with PMHx of IDDM, HTN, CKD (RTA4), cervical spinal stenosis, neuropathy, R- Foot Drop, atrophy, depression who presented to the ED after being found unresponsive with a BGM of 30 (responded to D10). Plan: 1) Cardiology: Chest pain - Trops elevated, however trending down. Per cardiology, not indicative of ACS clinically. No EKG acute changes - F/u ECHO - F/u pharmacologic MPI Diastolic LV dysfunction - Continue Carvedilol - Continue Lasix - Continue Norvasc - Continue ASA - Appreciate cardiology consult HTN - As above 2) : CKD - Baseline Cr 2.5-2.6 - Cr today 2.4 - Continue to monitor 3) Endocrine: IDDM - Period of hypoglycemia requiring D10 prior to ED arrival - BGM ACHS - ISS ACHS - Patient takes Glargine 36u sq daily at home, will hold for now and monitor novolog requirements 4) F/E/N: - Monitor electrolytes - Sodium controlled diet 5) Prophylaxis: - OOB ambulating - Heparin 5,000u sq bid 6) Dispo: - Requires continued inpatient care CODE STATUS: FULL CODE Visit type - Emergency Visit Emergency Visit: Yes ED Registration Date: 07/16/16 Care time: The patient presented to the Emergency Department on the above date and was hospitalized for further evaluation of their emergent condition. - New Patient This patient is new to me today: Yes Date on this admission: 07/17/16 - Critical Care Critical Care patient: No
[2016-07-17] MEDS: LATANOPROST 0.005% OPHTH SOLN 2.5ML BOTTLE OU SCH (22:11)
[2016-07-18] MEDS: INSULIN SLIDING SCALE (NOVOLOG) 1 VIAL SQ SCH ×4 (06:06→22:31)
[2016-07-18 08:18] LABS: BASOPHIL 0.4 % (0-2.0); EOSINOPHIL 5.7 % (0-4.5); MCH 31.6 pg (25.7-33.7); MEAN CELL VOLUME 95.6 fl (80-96); MEAN PLT VOLUME 10.4 fl (7.5-11.1); NEUTROPHILS 58.7 % (42.8-82.8); PLATELET COUNT 145 K/MM3 (134-434); RDW 13.7 % (11.9-15.9); WHITE BLOOD COUNT 5.6 K/mm3 (4.0-10.0)
[2016-07-18 09:09] LABS: ALBUMIN 3.5 g/dl (3.4-5.0); BILIRUBIN,TOTAL 0.6 mg/dL (0.2-1.0); CALCIUM 8.7 mg/dL (8.5-10.1); CREATININE 2.5 mg/dL (0.7-1.3); TOT PROT 7.1 g/dl (6.4-8.2)
--- NOTE | 2016-07-18 09:57 | PN ---
Progress Note (short form) - Note Progress Note: Chief Complaint: Events noted, notes reviewed, continues to report vague left sided chest pain, intermittent, denies any dyspnea History of Present Illness: Seen and examined on telemetry. Events noted, notes reviewed, continues to report vague left sided chest pain, intermittent, denies any dyspnea Plan to proceed with echocardiography and MPI study in AM - Current Medication List Current Medications Acetaminophen (Tylenol -) 500 mg PO Q6H PRN PRN Reason: PAIN Amlodipine Besylate (Norvasc -) 10 mg PO DAILY [facility] Last Admin: 07/17/16 09:04 Dose: 10 mg Aspirin (Asa -) 81 mg PO DAILY [facility] Last Admin: 07/17/16 09:04 Dose: 81 mg Bacitracin (Bacitracin -) 1 applic TP DAILY [facility] Last Admin: 07/17/16 14:20 Dose: 1 applic Calcitriol (Rocaltrol -) 0.25 mcg PO DAILY [facility] Last Admin: 07/17/16 09:05 Dose: 0.25 mcg Carvedilol (Coreg -) 6.25 mg PO BID [facility] Last Admin: 07/17/16 22:11 Dose: 6.25 mg Clonidine (Catapres -) 0.1 mg PO BID [facility] Last Admin: 07/17/16 22:11 Dose: 0.1 mg Duloxetine HCl (Cymbalta -) 30 mg PO DAILY [facility] Last Admin: 07/17/16 09:04 Dose: 30 mg Furosemide (Lasix -) 40 mg PO DAILY [facility] Last Admin: 07/17/16 09:04 Dose: 40 mg Gabapentin (Neurontin -) 300 mg PO BID [facility] Last Admin: 07/17/16 22:11 Dose: 300 mg Heparin Sodium (Porcine) (Heparin -) 5,000 unit SQ BID [facility] Last Admin: 07/17/16 22:11 Dose: 5,000 unit Insulin Aspart (Novolog Vial Sliding Scale -) 0 vial SQ ACHS [facility] PRN Reason: Protocol Last Admin: 07/18/16 06:06 Dose: 4 units Latanoprost (Xalatan 0.005% Eye Drops -) 1 drop OU HS [facility] Last Admin: 07/17/16 22:11 Dose: 1 drp Multivitamins/Minerals/Vitamin C (Tab-A-Vit -) 1 tab PO DAILY [facility] Last Admin: 07/17/16 09:02 Dose: 1 tab Pantoprazole Sodium (Protonix -) 40 mg PO DAILY [facility] Last Admin: 07/17/16 09:03 Dose: 40 mg - Review of Systems Cardiovascular: As noted above Respiratory: denies: Cough or Sputum Production Gastrointestinal: denies: Nausea, Vomiting, Diarrhea, Constipation or Abdominal Pain Musculoskeletal: No symptoms reported Neurological: Foot drop and spinal stenosis - Objective Vital Signs: Last Vital Signs Temp Pulse Resp BP Pulse Ox 98.4 F 85 20 139/66 96 07/18/16 06:00 07/18/16 08:14 07/18/16 08:14 07/18/16 08:14 07/17/16 21:00 Neck: Supple Negative JVD Cardiovascular: S1 S2 Regular Rate Rhythm Respiratory: Clear to A&P Gastrointestinal: Soft Benign Normal Bowel Sounds Ext: Negative Edema Labs: CBC, BMP 07/18/16 06:02 07/18/16 06:02 INR, PTT INR 0.97 (0.82-1.09) 07/16/16 10:43 Troponin, BNP 07/17/16 07/17/16 06:07 06:07 Troponin I 0.13 H D Cancelled Assessment/Plan ASSESSMENT: 1. Chest pain syndrome, CAD angina pectoris with borderline Troponin I elevation not indicative of ACS clinically, no acute EKG changes 2. Diastolic LV dysfunction with class 0-I NYHA classification LV failure 3. HTN 4. IDDM 5. Hypercholesterolemia 6. Cervical Spinal Stenosis 7. CKD 8. Neuropathy PLAN: 1. Continue Coreg and titrate dosage as tolerated, hemodynamics permitting 2. Continue Norvasc and Clonidine (down titrate) 3. Ideally should be on ACEI or ARBS unless contraindicated, pending renal function improvement and stabilization 4. Continue PO Lasix 5. Continue ASA 6. Echocardiography for evaluation of LV function 7. Pharmacologic MPI study to evaluate CAD/ischemia severity Aaliyah Light MD
--- NOTE | 2016-07-18 09:58 | PN ---
Progress Note (short form) - Note Progress Note: Subjective: The patient was seen at the bedside, he states he did not sleep well last night because it was cold in his room and that he is tired. Current Medications Generic Name Dose Route Start Last Admin Trade Name Freq PRN Reason Stop Dose Admin Acetaminophen 500 mg 07/17/16 00:50 Tylenol - PO Q6H PRN PAIN Amlodipine Besylate 10 mg 07/17/16 10:00 07/17/16 09:04 Norvasc - PO 10 mg DAILY [facility] Administration Aspirin 81 mg 07/17/16 10:00 07/17/16 09:04 Asa - PO 81 mg DAILY [facility] Administration Bacitracin 1 applic 07/17/16 10:00 07/17/16 14:20 Bacitracin - TP 1 applic DAILY [facility] Administration Calcitriol 0.25 mcg 07/17/16 10:00 07/17/16 09:05 Rocaltrol - PO 0.25 mcg DAILY [facility] Administration Carvedilol 6.25 mg 07/17/16 11:15 07/17/16 22:11 Coreg - PO 6.25 mg BID [facility] Administration Clonidine 0.1 mg 07/17/16 22:00 07/17/16 22:11 Catapres - PO 0.1 mg BID [facility] Administration Duloxetine HCl 30 mg 07/17/16 10:00 07/17/16 09:04 Cymbalta - PO 30 mg DAILY [facility] Administration Furosemide 40 mg 07/17/16 10:00 07/17/16 09:04 Lasix - PO 40 mg DAILY [facility] Administration Gabapentin 300 mg 07/17/16 10:00 07/17/16 22:11 Neurontin - PO 300 mg BID [facility] Administration Heparin Sodium (Porcine) 5,000 unit 07/17/16 10:00 07/17/16 22:11 Heparin - SQ 5,000 unit BID [facility] Administration Insulin Aspart 0 vial 07/16/16 22:00 07/18/16 06:06 Novolog Vial Sliding Scale - SQ 4 units ACHS [facility] Administration Protocol Latanoprost 1 drop 07/17/16 22:00 07/17/16 22:11 Xalatan 0.005% Eye Drops - OU 1 drp HS [facility] Administration Multivitamins/Minerals/Vitamin C 1 tab 07/17/16 10:00 07/17/16 09:02 Tab-A-Vit - PO 1 tab DAILY [facility] Administration Pantoprazole Sodium 40 mg 07/17/16 10:00 07/17/16 09:03 Protonix - PO 40 mg DAILY [facility] Administration Objective: Vital Signs Period Temp Pulse Resp BP Sys/Crowell Pulse Ox Last 24 Hr 97.6 F-98.4 F 58-85 16-20 116-148/66-88 96 Physical Exam: General: NAD, A&Ox3 Lungs: CTA bilaterally Heart: RRR, S1S2 Abd: Soft, non-tender, non-distended. Normoactive bowel sounds Ext: Warm, well-perfused. 2+ DP/PT bilaterally Neuro: Patient refused neuro exam CBCD WBC 5.6 K/mm3 (4.0-10.0) 07/18/16 06:02 RBC 4.36 M/mm3 (4.00-5.60) 07/18/16 06:02 Hgb 13.7 GM/dL (11.7-16.9) 07/18/16 06:02 Hct 41.7 % (35.4-49) 07/18/16 06:02 MCV 95.6 fl (80-96) 07/18/16 06:02 MCHC 33.0 g/dl (32.0-35.9) 07/18/16 06:02 RDW 13.7 % (11.9-15.9) 07/18/16 06:02 Plt Count 145 K/MM3 (134-434) 07/18/16 06:02 MPV 10.4 fl (7.5-11.1) 07/18/16 06:02 CMP Sodium 140 mmol/L (136-145) 07/18/16 06:02 Potassium 4.4 mmol/L (3.5-5.1) 07/18/16 06:02 Chloride 103 mmol/L (98-107) 07/18/16 06:02 Carbon Dioxide 28 mmol/L (21-32) D 07/18/16 06:02 Anion Gap 9 (8-16) 07/18/16 06:02 BUN 33 mg/dL (7-18) H 07/18/16 06:02 Creatinine 2.5 mg/dL (0.7-1.3) H 07/18/16 06:02 Creat Clearance w eGFR 26.48 (>60) 07/18/16 06:02 Random Glucose 215 mg/dL (74-106) H D 07/18/16 06:02 Calcium 8.7 mg/dL (8.5-10.1) 07/18/16 06:02 Total Bilirubin 0.6 mg/dL (0.2-1.0) D 07/18/16 06:02 AST 17 U/L (15-37) 07/18/16 06:02 ALT 19 U/L (12-78) 07/18/16 06:02 Alkaline Phosphatase 80 U/L (45-117) 07/18/16 06:02 Total Protein 7.1 g/dl (6.4-8.2) 07/18/16 06:02 Albumin 3.5 g/dl (3.4-5.0) 07/18/16 06:02 CARDIAC ENZYMES Creatine Kinase 156 IU/L (39-308) 07/17/16 06:07 Troponin I 0.13 ng/ml (0.00-0.05) H D 07/17/16 06:07 Assessment: This is a 60 year old male with PMHx of IDDM, HTN, CKD (RTA4), cervical spinal stenosis, neuropathy, R- Foot Drop, atrophy, depression who presented to the ED after being found unresponsive with a BGM of 30 (responded to D10). Plan: 1) Cardiology: Chest pain - Trops elevated, however trended down. Per cardiology, not indicative of ACS clinically. No EKG acute changes - F/u ECHO - F/u pharmacologic MPI Diastolic LV dysfunction - Continue Carvedilol - Continue Lasix - Continue Norvasc - Continue ASA - Appreciate cardiology consult HTN - As above 2) : CKD - Baseline Cr 2.5-2.6 - Cr today 2.5 - Continue to monitor - F/u outpatient compliance professional 3) Endocrine: IDDM - Period of hypoglycemia requiring D10 prior to ED arrival - BGM ACHS - ISS ACHS - Patient takes Glargine 36u sq daily at home, will hold for now and monitor novolog requirements 4) F/E/N: - Monitor electrolytes - Sodium controlled diet 5) Prophylaxis: - OOB ambulating - Heparin 5,000u sq bid 6) Dispo: - Requires continued inpatient care CODE STATUS: FULL CODE Visit type - Emergency Visit Emergency Visit: Yes ED Registration Date: 07/16/16 Care time: The patient presented to the Emergency Department on the above date and was hospitalized for further evaluation of their emergent condition. - New Patient This patient is new to me today: No - Critical Care Critical Care patient: No
[2016-07-18] MEDS: DULoxetine HCL 30 MG CAPSULE.DR (FP) PO SCH (11:38)
[2016-07-18] MEDS: amLODIPine BESYLATE 10 MG TABLET (FP) PO SCH (11:38)
[2016-07-18] MEDS: MULTIVITAMINS (DAILY MVI) TABLET (FP) PO SCH (11:39)
[2016-07-18] MEDS: CALCITRIOL 0.25 MCG CAPSULE (FP) PO SCH (11:40)
[2016-07-18] MEDS: ASPIRIN 81 MG CHEWABLE TABLETS PO SCH (11:40)
[2016-07-18] MEDS: FUROSEMIDE 40 MG TABLET (FP) PO SCH (11:40)
[2016-07-18] MEDS: cloNIDine HCL 0.1 MG TABLET PO SCH (11:41)
[2016-07-18] MEDS: CARVEDILOL 12.5 MG TABLET (FP) PO SCH ×2 (11:41→22:30)
[2016-07-18] MEDS: PANTOPRAZOLE 40 MG TABLET (FP) PO SCH (11:42)
[2016-07-18] MEDS: HEPARIN NA (PORCINE) 5,000 UNITS/ML 1ML VIAL SQ SCH ×2 (11:42→22:30)
[2016-07-18] MEDS: GABAPENTIN 300 MG CAPSULE (FP) PO SCH ×2 (12:10→22:30)
[2016-07-18] MEDS: BACITRACIN 30 GM TUBE TOPICAL OINTMENT TP SCH (12:40)
[2016-07-18] MEDS ORDERED: PT OWN MED DRAWER 7, Y5N ONE (22:09)
[2016-07-18] MEDS: LATANOPROST 0.005% OPHTH SOLN 2.5ML BOTTLE OU SCH (22:31)
[2016-07-19] MEDS: INSULIN SLIDING SCALE (NOVOLOG) 1 VIAL SQ SCH ×4 (07:15→22:27)
[2016-07-19 08:35] LABS: CREATININE 2.9 mg/dL (0.7-1.3)
[2016-07-19] MEDS ORDERED: DEXTROSE 5% IVPB ONE (10:00)
[2016-07-19] MEDS ORDERED: WATER IVPB ONE (10:00)
[2016-07-19] MEDS: CARVEDILOL 12.5 MG TABLET (FP) PO SCH ×2 (10:00→22:19)
[2016-07-19] MEDS ORDERED: DIPYRIDAMOLE STRESS TEST IVPB ONE (10:00)
[2016-07-19] MEDS: PANTOPRAZOLE 40 MG TABLET (FP) PO SCH (12:59)
[2016-07-19] MEDS: MULTIVITAMINS (DAILY MVI) TABLET (FP) PO SCH (12:59)
[2016-07-19] MEDS: CALCITRIOL 0.25 MCG CAPSULE (FP) PO SCH (13:00)
[2016-07-19] MEDS: GABAPENTIN 300 MG CAPSULE (FP) PO SCH ×2 (13:00→22:20)
[2016-07-19] MEDS: BACITRACIN 30 GM TUBE TOPICAL OINTMENT TP SCH (13:01)
[2016-07-19] MEDS: ASPIRIN 81 MG CHEWABLE TABLETS PO SCH (13:01)
[2016-07-19] MEDS: DULoxetine HCL 30 MG CAPSULE.DR (FP) PO SCH (13:01)
[2016-07-19] MEDS: HEPARIN NA (PORCINE) 5,000 UNITS/ML 1ML VIAL SQ SCH ×2 (13:02→22:19)
[2016-07-19] MEDS: amLODIPine BESYLATE 10 MG TABLET (FP) PO SCH (14:00)
[2016-07-19] MEDS: FUROSEMIDE 40 MG TABLET (FP) PO SCH (14:00)
--- NOTE | 2016-07-19 14:59 | PN ---
Progress Note, Physician Chief Complaint: Events noted Complains of left sided chest pain Episode of hypotension and sweating prior to nuclear stress test Patient was given IV fluids and it resolved. ECG did not reveal any changes History of Present Illness: Patient was seen and examined. Awake and alert. Chart was reviewed As outlined. Episode of chest discomfort - Current Medication List Current Medications: Active Medications Acetaminophen (Tylenol -) 500 mg PO Q6H PRN PRN Reason: PAIN Last Admin: 07/18/16 12:40 Dose: 500 mg Amlodipine Besylate (Norvasc -) 10 mg PO DAILY [facility] Last Admin: 07/18/16 11:38 Dose: 10 mg Aspirin (Asa -) 81 mg PO DAILY [facility] Last Admin: 07/19/16 13:01 Dose: 81 mg Bacitracin (Bacitracin -) 1 applic TP DAILY [facility] Last Admin: 07/19/16 13:01 Dose: 1 applic Calcitriol (Rocaltrol -) 0.25 mcg PO DAILY [facility] Last Admin: 07/19/16 13:00 Dose: 0.25 mcg Carvedilol (Coreg -) 12.5 mg PO BID [facility] Last Admin: 07/18/16 22:30 Dose: 12.5 mg Clonidine (Catapres -) 0.1 mg PO DAILY [facility] Last Admin: 07/18/16 11:41 Dose: 0.1 mg Duloxetine HCl (Cymbalta -) 30 mg PO DAILY [facility] Last Admin: 07/19/16 13:01 Dose: 30 mg Furosemide (Lasix -) 40 mg PO DAILY [facility] Last Admin: 07/18/16 11:40 Dose: 40 mg Gabapentin (Neurontin -) 300 mg PO BID [facility] Last Admin: 07/19/16 13:00 Dose: 300 mg Heparin Sodium (Porcine) (Heparin -) 5,000 unit SQ BID [facility] Last Admin: 07/19/16 13:02 Dose: 5,000 unit Insulin Aspart (Novolog Vial Sliding Scale -) 0 vial SQ ACHS [facility] PRN Reason: Protocol Last Admin: 07/19/16 13:00 Dose: 8 units Latanoprost (Xalatan 0.005% Eye Drops -) 1 drop OU HS [facility] Last Admin: 07/18/16 22:31 Dose: 1 drp Multivitamins/Minerals/Vitamin C (Tab-A-Vit -) 1 tab PO DAILY [facility] Last Admin: 07/19/16 12:59 Dose: 1 tab Pantoprazole Sodium (Protonix -) 40 mg PO DAILY [facility] Last Admin: 07/19/16 12:59 Dose: 40 mg - Objective Vital Signs: Vital Signs Temperature 97.8 F 07/19/16 13:46 Pulse Rate 57 L 07/19/16 13:46 Respiratory Rate 20 07/19/16 13:46 Blood Pressure 132/60 07/19/16 13:46 O2 Sat by Pulse Oximetry (%) 98 07/19/16 09:00 Neck: Yes: Supple Cardiovascular: Yes: Regular Rate and Rhythm, S1, S2 Respiratory: Yes: Regular, CTA Bilaterally Gastrointestinal: Yes: Normal Bowel Sounds, Soft. No: Tenderness Edema: No Additional Findings/Remarks: - Review of Systems Cardiovascular: As noted above Respiratory: denies: Cough or Sputum Production Gastrointestinal: denies: Nausea, Vomiting, Diarrhea, Constipation or Abdominal Pain Musculoskeletal: No symptoms reported Neurological: Foot drop and spinal stenosis Labs: CBC, BMP 07/18/16 06:02 07/19/16 06:00 INR, PTT INR 0.97 (0.82-1.09) 07/16/16 10:43 Problem List - Problems (1) CKD (chronic kidney disease) Code(s): N18.9 - CHRONIC KIDNEY DISEASE, UNSPECIFIED (2) Chest pain Code(s): R07.9 - CHEST PAIN, UNSPECIFIED (3) Diabetes mellitus Code(s): E11.9 - TYPE 2 DIABETES MELLITUS WITHOUT COMPLICATIONS Qualifiers: Diabetes mellitus type: type 2 Diabetes mellitus complication status: without complication Diabetes mellitus terminal operator insulin use: without terminal operator use Qualified Code(s): E11.9 - Type 2 diabetes mellitus without complications (4) HTN (hypertension) Code(s): I10 - ESSENTIAL (PRIMARY) HYPERTENSION Qualifiers: Hypertension type: essential hypertension Qualified Code(s): I10 - Essential (primary) hypertension (5) Neuropathy due to type 2 diabetes mellitus Code(s): E11.40 - TYPE 2 DIABETES MELLITUS WITH DIABETIC NEUROPATHY, UNSP Assessment/Plan 1. Chest pain syndrome, CAD angina pectoris with borderline Troponin I elevation not indicative of ACS clinically 2. Diastolic LV dysfunction with class 0-I NYHA classification LV failure 3. HTN 4. IDDM 5. Hypercholesterolemia 6. Cervical Spinal Stenosis 7. CKD 8. Neuropathy PLAN: 1. Continue Coreg and titrate dosage as tolerated and continue Norvasc and Clonidine (down titrate) 2. Ideally should be on ACEI or ARB unless contraindicated, pending renal function improvement and stabilization 3. Continue PO Lasix 4. Continue ASA 5. Transthoracic echocardiography for evaluation of LV and valvular function 6. Pharmacologic nuclear myocardial perfusion study to evaluate CAD/ischemia severity Further plans are to follow Aydin Smalls MD
[2016-07-19 16:31] LABS: CALCIUM 8.6 mg/dL (8.5-10.1); CREATININE 3.3 mg/dL (0.7-1.3)
[2016-07-19] MEDS: cloNIDine HCL 0.1 MG TABLET PO SCH (17:48)
--- NOTE | 2016-07-19 18:22 | PN ---
[phone] has just returned from stress test at which he became hypotensive and had an episode of vomiting. IV fluid bolus given with improvement in his BP. He reports feeling better now. Awaiting ECHO report Stress test overall negative persantine stress, EF 67% Current Medications Generic Name Dose Route Start Last Admin Trade Name Freq PRN Reason Stop Dose Admin Acetaminophen 500 mg 07/17/16 00:50 07/18/16 12:40 Tylenol - PO 500 mg Q6H PRN Administration PAIN Amlodipine Besylate 10 mg 07/17/16 10:00 07/19/16 14:00 Norvasc - PO Not Given DAILY [facility] Aspirin 81 mg 07/17/16 10:00 07/19/16 13:01 Asa - PO 81 mg DAILY [facility] Administration Bacitracin 1 applic 07/17/16 10:00 07/19/16 13:01 Bacitracin - TP 1 applic DAILY [facility] Administration Calcitriol 0.25 mcg 07/17/16 10:00 07/19/16 13:00 Rocaltrol - PO 0.25 mcg DAILY [facility] Administration Carvedilol 12.5 mg 07/18/16 09:59 07/19/16 10:00 Coreg - PO Not Given BID [facility] Clonidine 0.1 mg 07/18/16 10:00 07/19/16 17:48 Catapres - PO Not Given DAILY [facility] Duloxetine HCl 30 mg 07/17/16 10:00 07/19/16 13:01 Cymbalta - PO 30 mg DAILY [facility] Administration Furosemide 40 mg 07/17/16 10:00 07/19/16 14:00 Lasix - PO Not Given DAILY [facility] Gabapentin 300 mg 07/17/16 10:00 07/19/16 13:00 Neurontin - PO 300 mg BID [facility] Administration Heparin Sodium (Porcine) 5,000 unit 07/17/16 10:00 07/19/16 13:02 Heparin - SQ 5,000 unit BID [facility] Administration Insulin Aspart 0 vial 07/16/16 22:00 07/19/16 17:12 Novolog Vial Sliding Scale - SQ 8 units ACHS [facility] Administration Protocol Insulin Detemir 10 units 07/19/16 22:00 Levemir Vial SQ HS [facility] Latanoprost 1 drop 07/17/16 22:00 07/18/16 22:31 Xalatan 0.005% Eye Drops - OU 1 drp HS [facility] Administration Multivitamins/Minerals/Vitamin C 1 tab 07/17/16 10:00 07/19/16 12:59 Tab-A-Vit - PO 1 tab DAILY [facility] Administration Pantoprazole Sodium 40 mg 07/17/16 10:00 07/19/16 12:59 Protonix - PO 40 mg DAILY [facility] Administration Objective: Vital Signs Period Temp Pulse Resp BP Sys/Crowell Pulse Ox Last 24 Hr 97.6 F-98.2 F 57-96 16-20 89-140/60-82 97-98 Physical Exam: General: NAD, A&Ox3 Lungs: CTA bilaterally Heart: RRR, S1S2 Abd: Soft, non-tender, non-distended. Normoactive bowel sounds Ext: Warm, well-perfused. 2+ DP/PT bilaterally Neuro: CN 2-12 intact CBCD WBC 5.6 K/mm3 (4.0-10.0) 07/18/16 06:02 RBC 4.36 M/mm3 (4.00-5.60) 07/18/16 06:02 Hgb 13.7 GM/dL (11.7-16.9) 07/18/16 06:02 Hct 41.7 % (35.4-49) 07/18/16 06:02 MCV 95.6 fl (80-96) 07/18/16 06:02 MCHC 33.0 g/dl (32.0-35.9) 07/18/16 06:02 RDW 13.7 % (11.9-15.9) 07/18/16 06:02 Plt Count 145 K/MM3 (134-434) 07/18/16 06:02 MPV 10.4 fl (7.5-11.1) 07/18/16 06:02 CMP Sodium 136 mmol/L (136-145) 07/19/16 15:15 Potassium 5.0 mmol/L (3.5-5.1) 07/19/16 15:15 Chloride 100 mmol/L (98-107) 07/19/16 15:15 Carbon Dioxide 24 mmol/L (21-32) 07/19/16 15:15 Anion Gap 12 (8-16) 07/19/16 15:15 BUN 45 mg/dL (7-18) H 07/19/16 15:15 Creatinine 3.3 mg/dL (0.7-1.3) H 07/19/16 15:15 Creat Clearance w eGFR 26.48 (>60) 07/18/16 06:02 Random Glucose 304 mg/dL (74-106) H* 07/19/16 15:15 Calcium 8.6 mg/dL (8.5-10.1) 07/19/16 15:15 Total Bilirubin 0.6 mg/dL (0.2-1.0) D 07/18/16 06:02 AST 17 U/L (15-37) 07/18/16 06:02 ALT 19 U/L (12-78) 07/18/16 06:02 Alkaline Phosphatase 80 U/L (45-117) 07/18/16 06:02 Total Protein 7.1 g/dl (6.4-8.2) 07/18/16 06:02 Albumin 3.5 g/dl (3.4-5.0) 07/18/16 06:02 CARDIAC ENZYMES Creatine Kinase 156 IU/L (39-308) 07/17/16 06:07 Troponin I 0.13 ng/ml (0.00-0.05) H D 07/17/16 06:07 Assessment: This is a 60 year old male with PMHx of IDDM, HTN, CKD (RTA4), cervical spinal stenosis, neuropathy, R- Foot Drop, atrophy, depression who presented to the ED after being found unresponsive with a BGM of 30 (responded to D10). Plan: 1) Cardiology: Chest pain - Trops elevated, however trended down. Per cardiology, not indicative of ACS clinically. No EKG acute changes - F/u ECHO (performed today) - Persantine stress overall negative. EF 67% Diastolic LV dysfunction - Continue Carvedilol - Continue Lasix - Continue Norvasc - Continue ASA - Appreciate cardiology consult HTN - As above 2) : CKD - Baseline Cr 2.5-2.6 - Cr today increasing 2.9->3.3 (patient reports urinating with no issues) - Called [facility] for outpatient redye hand information and to discuss outpatient creatinine - Monitor kidney function overnight, if continues to worsen, f/u kidney/bladder ultrasound, urine studies - F/u outpatient redye hand 3) Endocrine: IDDM - Period of hypoglycemia requiring D10 prior to ED arrival - BGM ACHS - ISS ACHS - Patient takes Glargine 36u sq daily at home, will start Levemir 10u sq qhs and monitor bgms 4) F/E/N: - Monitor electrolytes - Sodium controlled diet 5) Prophylaxis: - OOB ambulating - Heparin 5,000u sq bid 6) Dispo: - Requires continued inpatient care CODE STATUS: FULL CODE Visit type - Emergency Visit Emergency Visit: Yes ED Registration Date: 07/16/16 Care time: The patient presented to the Emergency Department on the above date and was hospitalized for further evaluation of their emergent condition. - New Patient This patient is new to me today: No - Critical Care Critical Care patient: No
[2016-07-19] MEDS ORDERED: INSULIN DETEMIR 100 UNITS/ML MDV SQ SCH (22:00)
[2016-07-19] MEDS ORDERED: PT OWN MED DRAWER 7, Y5N ONE (22:25)
[2016-07-19] MEDS: LATANOPROST 0.005% OPHTH SOLN 2.5ML BOTTLE OU SCH (22:27)
[2016-07-20] MEDS: INSULIN SLIDING SCALE (NOVOLOG) 1 VIAL SQ SCH ×4 (06:03→22:16)
[2016-07-20 07:50] LABS: CALCIUM 8.8 mg/dL (8.5-10.1); CREATININE 3.3 mg/dL (0.7-1.3)
--- NOTE | 2016-07-20 08:49 | PN ---
Progress Note (short form) - Note Progress Note: Chief Complaint: Events noted, notes reviewed, continues to report vague left sided chest pain, intermittent, denies any dyspnea History of Present Illness: Seen and examined on telemetry. Events noted, notes reviewed, continues to report vague left sided chest pain, intermittent, denies any dyspnea Echocardiography revealed normal LV size and function, with mild TR MPI study revealed inferior attenuation with normal LV function, LV EF of 67% - Current Medication List Current Medications Acetaminophen (Tylenol -) 500 mg PO Q6H PRN PRN Reason: PAIN Last Admin: 07/18/16 12:40 Dose: 500 mg Amlodipine Besylate (Norvasc -) 10 mg PO DAILY [facility] Last Admin: 07/19/16 14:00 Dose: Not Given Aspirin (Asa -) 81 mg PO DAILY [facility] Last Admin: 07/19/16 13:01 Dose: 81 mg Bacitracin (Bacitracin -) 1 applic TP DAILY [facility] Last Admin: 07/19/16 13:01 Dose: 1 applic Calcitriol (Rocaltrol -) 0.25 mcg PO DAILY [facility] Last Admin: 07/19/16 13:00 Dose: 0.25 mcg Carvedilol (Coreg -) 12.5 mg PO BID [facility] Last Admin: 07/19/16 22:19 Dose: 12.5 mg Clonidine (Catapres -) 0.1 mg PO DAILY [facility] Last Admin: 07/19/16 17:48 Dose: Not Given Duloxetine HCl (Cymbalta -) 30 mg PO DAILY [facility] Last Admin: 07/19/16 13:01 Dose: 30 mg Furosemide (Lasix -) 40 mg PO DAILY [facility] Last Admin: 07/19/16 14:00 Dose: Not Given Gabapentin (Neurontin -) 300 mg PO BID [facility] Last Admin: 07/19/16 22:20 Dose: 300 mg Heparin Sodium (Porcine) (Heparin -) 5,000 unit SQ BID [facility] Last Admin: 07/19/16 22:19 Dose: 5,000 unit Insulin Aspart (Novolog Vial Sliding Scale -) 0 vial SQ ACHS [facility] PRN Reason: Protocol Last Admin: 07/20/16 06:03 Dose: 6 units Insulin Detemir (Levemir Vial) 10 units SQ HS [facility] Last Admin: 07/19/16 22:27 Dose: 10 units Latanoprost (Xalatan 0.005% Eye Drops -) 1 drop OU HS [facility] Last Admin: 07/19/16 22:27 Dose: 1 drp Multivitamins/Minerals/Vitamin C (Tab-A-Vit -) 1 tab PO DAILY [facility] Last Admin: 07/19/16 12:59 Dose: 1 tab Pantoprazole Sodium (Protonix -) 40 mg PO DAILY [facility] Last Admin: 07/19/16 12:59 Dose: 40 mg - Review of Systems Cardiovascular: As noted above Respiratory: denies: Cough or Sputum Production Gastrointestinal: denies: Nausea, Vomiting, Diarrhea, Constipation or Abdominal Pain Musculoskeletal: No symptoms reported Neurological: Foot drop and spinal stenosis - Objective Vital Signs: Last Vital Signs Temp Pulse Resp BP Pulse Ox 98 F 72 18 112/54 98 07/20/16 05:52 07/20/16 05:52 07/20/16 05:52 07/20/16 05:52 07/19/16 21:00 Neck: Supple Negative JVD Cardiovascular: S1 S2 Regular Rate Rhythm Respiratory: Clear to A&P Gastrointestinal: Soft Benign Normal Bowel Sounds Ext: Negative Edema Labs: CBC, BMP 07/18/16 06:02 07/20/16 05:35 INR, PTT INR 0.97 (0.82-1.09) 07/16/16 10:43 Assessment/Plan ASSESSMENT: 1. Chest pain syndrome, CAD angina pectoris with borderline Troponin I elevation not indicative of ACS clinically, negative MPI study for medical management 2. Diastolic LV dysfunction with class 0-I NYHA classification LV failure 3. HTN 4. IDDM 5. Hypercholesterolemia 6. Cervical Spinal Stenosis 7. CKD 8. Neuropathy PLAN: 1. Continue Coreg 2. Continue Norvasc and Clonidine 3. Ideally should be on ACEI or ARBS unless contraindicated, pending renal function improvement and stabilization, can be done as outpatient 4. Continue PO Lasix 5. Continue ASA 6. May be D/C home from cardiovascular point of view Aaliyah Light MD
[2016-07-20] MEDS: MULTIVITAMINS (DAILY MVI) TABLET (FP) PO SCH (10:01)
[2016-07-20] MEDS: ASPIRIN 81 MG CHEWABLE TABLETS PO SCH (10:01)
[2016-07-20] MEDS: GABAPENTIN 300 MG CAPSULE (FP) PO SCH ×2 (10:01→22:15)
[2016-07-20] MEDS: DULoxetine HCL 30 MG CAPSULE.DR (FP) PO SCH (10:01)
[2016-07-20] MEDS: CARVEDILOL 12.5 MG TABLET (FP) PO SCH ×2 (10:01→22:15)
[2016-07-20] MEDS: amLODIPine BESYLATE 10 MG TABLET (FP) PO SCH (10:01)
[2016-07-20] MEDS: BACITRACIN 30 GM TUBE TOPICAL OINTMENT TP SCH (10:02)
[2016-07-20] MEDS: HEPARIN NA (PORCINE) 5,000 UNITS/ML 1ML VIAL SQ SCH ×2 (10:02→22:16)
[2016-07-20] MEDS: cloNIDine HCL 0.1 MG TABLET PO SCH (10:02)
[2016-07-20] MEDS: PANTOPRAZOLE 40 MG TABLET (FP) PO SCH (10:02)
[2016-07-20] MEDS: FUROSEMIDE 40 MG TABLET (FP) PO SCH (10:02)
[2016-07-20] MEDS: CALCITRIOL 0.25 MCG CAPSULE (FP) PO SCH (10:03)
[2016-07-20] MEDS ORDERED: LACTULOSE 20 GM/30 ML UDC (FOR ORAL USE ONLY) PO PRN (11:16)
[2016-07-20] MEDS ORDERED: LACTULOSE 20 GM/30 ML UDC (FOR ORAL USE ONLY) PO ONE (12:30)
[2016-07-20 12:52] LABS: BASOPHIL 0.5 % (0-2.0); EOSINOPHIL 3.5 % (0-4.5); MCH 31.7 pg (25.7-33.7); MCHC 32.6 g/dl (32.0-35.9); MEAN CELL VOLUME 97.1 fl (80-96); MEAN PLT VOLUME 10.2 fl (7.5-11.1); NEUTROPHILS 64.9 % (42.8-82.8); PLATELET COUNT 138 K/MM3 (134-434); RDW 13.8 % (11.9-15.9); WHITE BLOOD COUNT 6.4 K/mm3 (4.0-10.0)
[2016-07-20] MEDS ORDERED: LACTULOSE 20 GM/30 ML UDC (FOR ORAL USE ONLY) PO SCH (14:00)
--- NOTE | 2016-07-20 15:10 | PN ---
Physical Exam: SUBJECTIVE: Patient seen and examined. Reports dizzy spell just prior to my attending him. Tele monitor checked, no acute events noted. Pt reports he became dizzy while standing at the sink fixing his hair after getting up from the toilet. He had voided and had a BM at the time. Received a TC from lab, ammonia level 255, but is from 07/16. OBJECTIVE: Vital Signs - 24 hr 3 07/19/16 07/19/16 07/19/16 18:00 21:00 22:00 Temperature 97.7 F 97.8 F Pulse Rate 96 H 72 Respiratory 20 20 Rate Blood Pressure 109/66 140/89 O2 Sat by Pulse 98 Oximetry (%) 3 07/20/16 07/20/16 07/20/16 02:00 05:52 10:00 Temperature 98 F 97.0 F L Pulse Rate 68 72 76 Respiratory 20 18 18 Rate Blood Pressure 136/72 112/54 155/88 O2 Sat by Pulse Oximetry (%) Orthostatic vitals: layin/74, P65 sitting 124/83, P74 standing 79/51, P76 GENERAL: The patient is awake, alert, and fully oriented, in no acute distress. HEAD: Normal with no signs of trauma. EYES: PERRL, extraocular movements intact, sclera anicteric, conjunctiva clear. No ptosis. ENT: Ears normal, nares patent, oropharynx clear without exudates, moist mucous membranes. NECK: Trachea midline, full range of motion, supple. LUNGS: Breath sounds equal, clear to auscultation bilaterally, no wheezes, no crackles, no accessory muscle use. HEART: Regular rate and rhythm, S1, S2 without murmur, rub or gallop. ABDOMEN: Soft, nontender, nondistended, normoactive bowel sounds, no guarding, no rebound, no hepatosplenomegaly, no masses. EXTREMITIES: 2+ pulses, warm, well-perfused, no edema. NEUROLOGICAL: Cranial nerves II through XII grossly intact. Normal speech, gait not observed. PSYCH: Normal mood, normal affect. SKIN: Warm, dry, normal turgor, no rashes or lesions noted Laboratory Results - last 24 hr 3 07/19/16 07/19/16 07/19/16 15:15 15:36 22:21 WBC RBC Hgb Hct MCV MCHC RDW Plt Count MPV Neutrophils % Lymphocytes % Monocytes % Eosinophils % Basophils % Sodium 136 Potassium 5.0 Chloride 100 Carbon Dioxide 24 Anion Gap 12 BUN 45 H Creatinine 3.3 H POC Glucometer 333 209 Random Glucose 304 H* Calcium 8.6 3 07/20/16 07/20/16 07/20/16 05:35 06:01 12:14 WBC RBC Hgb Hct MCV MCHC RDW Plt Count MPV Neutrophils % Lymphocytes % Monocytes % Eosinophils % Basophils % Sodium 137 Potassium 4.4 Chloride 99 Carbon Dioxide 25 Anion Gap 13 BUN 47 H Creatinine 3.3 H POC Glucometer 264 247 Random Glucose 261 H Calcium 8.8 3 07/20/16 12:45 WBC 6.4 RBC 4.44 Hgb 14.1 Hct 43.1 MCV 97.1 H MCHC 32.6 RDW 13.8 Plt Count 138 MPV 10.2 Neutrophils % 64.9 Lymphocytes % 23.2 Monocytes % 7.9 Eosinophils % 3.5 Basophils % 0.5 Sodium Potassium Chloride Carbon Dioxide Anion Gap BUN Creatinine POC Glucometer Random Glucose Calcium Active Medications 3 Generic Name Dose Route Start Last Admin Trade Name Freq PRN Reason Stop Dose Admin Acetaminophen 500 mg 07/17/16 00:50 07/18/16 12:40 Tylenol - PO 500 mg Q6H PRN Administration PAIN Amlodipine Besylate 10 mg 07/17/16 10:00 07/20/16 10:01 Norvasc - PO 10 mg DAILY [facility] Administration Aspirin 81 mg 07/17/16 10:00 07/20/16 10:01 Asa - PO 81 mg DAILY [facility] Administration Bacitracin 1 applic 07/17/16 10:00 07/20/16 10:02 Bacitracin - TP 1 applic DAILY [facility] Administration Calcitriol 0.25 mcg 07/17/16 10:00 07/20/16 10:03 Rocaltrol - PO 0.25 mcg DAILY [facility] Administration Carvedilol 12.5 mg 07/18/16 09:59 07/20/16 10:01 Coreg - PO 12.5 mg BID [facility] Administration Clonidine 0.1 mg 07/18/16 10:00 07/20/16 10:02 Catapres - PO 0.1 mg DAILY [facility] Administration Duloxetine HCl 30 mg 07/17/16 10:00 07/20/16 10:01 Cymbalta - PO 30 mg DAILY [facility] Administration Furosemide 40 mg 07/17/16 10:00 07/20/16 10:02 Lasix - PO 40 mg DAILY [facility] Administration Gabapentin 300 mg 07/17/16 10:00 07/20/16 10:01 Neurontin - PO 300 mg BID [facility] Administration Heparin Sodium (Porcine) 5,000 unit 07/17/16 10:00 07/20/16 10:02 Heparin - SQ 5,000 unit BID [facility] Administration Insulin Aspart 0 vial 07/16/16 22:00 07/20/16 12:32 Novolog Vial Sliding Scale - SQ 4 units ACHS [facility] Administration Protocol Insulin Detemir 10 units 07/19/16 22:00 07/19/16 22:27 Levemir Vial SQ 10 units HS [facility] Administration Latanoprost 1 drop 07/17/16 22:00 07/19/16 22:27 Xalatan 0.005% Eye Drops - OU 1 drp HS [facility] Administration Multivitamins/Minerals/Vitamin C 1 tab 07/17/16 10:00 07/20/16 10:01 Tab-A-Vit - PO 1 tab DAILY [facility] Administration Pantoprazole Sodium 40 mg 07/17/16 10:00 07/20/16 10:02 Protonix - PO 40 mg DAILY [facility] Administration Echo 07/19/16: Interpretation Summary The left ventricle is normal in size LV syst function is normal No wall motion abnl Suggesion of impaired LV relaxation Mild mitral annular calcification mild tricuspid regurgitation no pericardial effusion ASSESSMENT/PLAN: This is a 60 year old male with PMHx of DM, HTN, CKD (RTA4), cervical spinal stenosis, neuropathy, R- Foot Drop, atrophy, depression who presented to the ED after being found unresponsive with a BGM of 30 (responded to D10). He also reported chest pain and thus was admitted for further evaluation. Orthostatic hypotension - dc clonidine, decrease norvasc to 5mg QD, maintain coreg for now - repeat orthostatics in AM. - cardiology consulted, aware of findings and in agreement with plan. DM - hypoglycemic episode resolved - restarted levemir 10u last night, BGM remain in 200s. Will increase to BID and follow sugars. (previously on lantus 36u) - cont novolog SS chest pain - ACS ruled out, stress test grossly normal - cont coreg, ASA CKD (RTA4) with JESSIE - baseline Cr 2.5-2.6 as per nurse at [facility], no improvement, renal consult ordered - hold lasix as recommended - sono as ordered. elevated ammonia level - doubt accurate given pt mental status is fine - repeat ordered stat Depression - cont home meds. FEN - tolerating po - monitor BMP in am - sodium/diabetic diet Dispo: Pt continues to require inpatient care. Visit type - Emergency Visit Emergency Visit: Yes ED Registration Date: 07/16/16 Care time: The patient presented to the Emergency Department on the above date and was hospitalized for further evaluation of their emergent condition. - New Patient This patient is new to me today: Yes Date on this admission: 07/20/16 - Critical Care Critical Care patient: No - Discharge Referral Referred to [facility] Med [facility].C[facility] No
--- NOTE | 2016-07-20 16:23 | CONSULT ---
Consult Consult Specialty:: Nephrology Reason for Consultation:: CKD - History of Present Illness Chief Complaint: initially presented s/p LOC History of Present Illness: Pt is a 60 year old male with pmhx of HTN, DM, CKD, liver disease, and depression who presented to the ER after LOC. He also remembers having chest pain. He had a cardiac workup while in the hospital. His creatinine however has been steadily rising. He says she does have history of kidney disease which he says is attributed to his DM. He has seen a pullboat engineer in the [place] in the past. He does not recall getting a kidney biopsy. He denies hematuria or dysuria. - History Source History Provided By: Patient, Medical Record - Past Medical History Cardio/Vascular: Yes: HTN Renal/: Yes: Renal Inusuff Endocrine: Yes: Diabetes Mellitus - Alcohol/Substance Use Hx Alcohol Use: Yes (QUIT IN 2005) - Smoking History Smoking history: Unknown if ever smoked Home Medications - Allergies Allergies/Adverse Reactions: Allergies Allergy/AdvReac Type Severity Reaction Status Date / Time No Known Drug Allergies Allergy Verified 03/03/16 09:26 - Home Medications Home Medications: Ambulatory Orders Amlodipine Besylate [Norvasc -] 10 mg PO DAILY 03/02/16 Calcitriol [Calcitriol -] 0.25 mcg PO DAILY 03/02/16 Clonidine HCl 0.1 mg PO TID 03/02/16 Furosemide [Lasix -] 40 mg PO DAILY 03/02/16 Gabapentin [Neurontin] 300 mg PO BID 03/02/16 Hypromellose 0.5% Opth Soln [Artificial Tears] 1 drop OU PRN PRN 03/02/16 Insulin Glargine,Hum.rec.anlog [Lantus Solostar PEN -] 36 units SQ DAILY Latanoprost 0.005% Eye Drops [Xalatan 0.005% Eye Drops -] 1 drop OU HS 03/02/16 Meclizine HCl [Antivert -] 12.5 mg PO PRN PRN 03/02/16 Multivitamins [Multivit ([facility] Formul[facility])] 1 tab PO DAILY 03/02/16 Pantoprazole Sodium [Protonix] 40 mg PO DAILY 03/02/16 Acetaminophen [Tylenol Extra Strength] 500 mg PO PRN PRN #0 03/03/16 Ammonium Lactate Cream [Lac-Hydrin 12% Cream -] 0.01 unit TP DAILY 07/16/16 Bacitracin - [Bacitracin Topical Ointment -] 1 applic TP DAILY 07/16/16 Duloxetine HCl [Cymbalta] 30 mg PO DAILY 07/16/16 Hydrocodone/Acetaminophen [Hydrocodon-Acetaminoph 7.5-325] 0 each PO Q6H MDD 4 07/16/16 Lactulose [Cephulac -] 30 ml PO DAILY 07/16/16 Linagliptin [Tradjenta] 5 mg PO DAILY 07/16/16 Sodium Polystyrene Sulfonate 15 gm PO DAILY 07/16/16 Synalar Ts 0.01% Kit 0.01 drop TP DAILY 07/16/16 Family Disease History - Family Disease History Family History: Denies Review of Systems - Review of Systems Constitutional: reports: No Symptoms Eyes: reports: No Symptoms HENT: reports: No Symptoms Neck: reports: No Symptoms Cardiovascular: reports: No Symptoms Respiratory: reports: No Symptoms Gastrointestinal: reports: No Symptoms Genitourinary: reports: No Symptoms Musculoskeletal: reports: No Symptoms Integumentary: reports: No Symptoms Neurological: reports: No Symptoms Endocrine: reports: No Symptoms Hematology/Lymphatic: reports: No Symptoms Psychiatric: reports: No Symptoms Physical Exam Vital Signs: Vital Signs Temperature 97.0 F L 07/20/16 10:00 Pulse Rate 76 07/20/16 10:00 Respiratory Rate 18 07/20/16 10:00 Blood Pressure 155/88 07/20/16 10:00 O2 Sat by Pulse Oximetry (%) 98 07/19/16 21:00 Constitutional: Yes: Calm Eyes: Yes: Conjunctiva Clear HENT: Yes: Atraumatic Neck: Yes: Supple Cardiovascular: Yes: S1, S2 Respiratory: Yes: CTA Bilaterally Gastrointestinal: Yes: Normal Bowel Sounds, Soft Renal/: Yes: WNL Musculoskeletal: Yes: WNL Edema: No Neurological: Yes: Oriented Psychiatric: Yes: Oriented Labs: CBC, BMP 07/20/16 12:45 07/20/16 05:35 Laboratory Tests 07/16/16 07/16/16 07/17/16 10:43 23:40 06:07 WBC Hgb MPV Creatinine 2.9 H 2.4 H Urine Color Straw Urine Appearance Clear Urine pH 6.0 Ur Specific [place] 1.005 Urine Protein Negative Urine Glucose (UA) 3+ H Urine Ketones Negative Urine Blood Negative Urine Nitrite Negative Urine Bilirubin Negative Urine Urobilinogen Negative Ur Leukocyte Esterase Negative 07/18/16 07/19/16 07/19/16 06:02 06:00 15:15 WBC Hgb MPV Creatinine 2.5 H 2.9 H 3.3 H Urine Color Urine Appearance Urine pH Ur Specific [place] Urine Protein Urine Glucose (UA) Urine Ketones Urine Blood Urine Nitrite Urine Bilirubin Urine Urobilinogen Ur Leukocyte Esterase 07/20/16 07/20/16 05:35 12:45 WBC 6.4 Hgb 14.1 MPV 10.2 Creatinine 3.3 H Urine Color Urine Appearance Urine pH Ur Specific [place] Urine Protein Urine Glucose (UA) Urine Ketones Urine Blood Urine Nitrite Urine Bilirubin Urine Urobilinogen Ur Leukocyte Esterase Problem List - Problems (1) CKD (chronic kidney disease) Code(s): N18.9 - CHRONIC KIDNEY DISEASE, UNSPECIFIED (2) Diabetes mellitus Code(s): E11.9 - TYPE 2 DIABETES MELLITUS WITHOUT COMPLICATIONS Qualifiers: Diabetes mellitus type: type 2 Diabetes mellitus complication status: without complication Diabetes mellitus terminal supervisor insulin use: without fci use Qualified Code(s): E11.9 - Type 2 diabetes mellitus without complications (3) HTN (hypertension) Code(s): I10 - ESSENTIAL (PRIMARY) HYPERTENSION Qualifiers: Hypertension type: essential hypertension Qualified Code(s): I10 - Essential (primary) hypertension Assessment/Plan Current Medications Generic Name Dose Route Start Last Admin Trade Name Freq PRN Reason Stop Dose Admin Acetaminophen 500 mg 07/17/16 00:50 07/18/16 12:40 Tylenol - PO 500 mg Q6H PRN Administration PAIN Amlodipine Besylate 10 mg 07/17/16 10:00 07/20/16 10:01 Norvasc - PO 10 mg DAILY KEVIN Administration Aspirin 81 mg 07/17/16 10:00 07/20/16 10:01 Asa - PO 81 mg DAILY KEVIN Administration Bacitracin 1 applic 07/17/16 10:00 07/20/16 10:02 Bacitracin - TP 1 applic DAILY KEVIN Administration Calcitriol 0.25 mcg 07/17/16 10:00 07/20/16 10:03 Rocaltrol - PO 0.25 mcg DAILY KEVIN Administration Carvedilol 12.5 mg 07/18/16 09:59 07/20/16 10:01 Coreg - PO 12.5 mg BID KEVIN Administration Clonidine 0.1 mg 07/18/16 10:00 07/20/16 10:02 Catapres - PO 0.1 mg DAILY KEVIN Administration Duloxetine HCl 30 mg 07/17/16 10:00 07/20/16 10:01 Cymbalta - PO 30 mg DAILY KEVIN Administration Furosemide 40 mg 07/17/16 10:00 07/20/16 10:02 Lasix - PO 40 mg DAILY KEVIN Administration Gabapentin 300 mg 07/17/16 10:00 07/20/16 10:01 Neurontin - PO 300 mg BID KEVIN Administration Heparin Sodium (Porcine) 5,000 unit 07/17/16 10:00 07/20/16 10:02 Heparin - SQ 5,000 unit BID KEVIN Administration Insulin Aspart 0 vial 07/16/16 22:00 07/20/16 12:32 Novolog Vial Sliding Scale - SQ 4 units ACHS KEVIN Administration Protocol Insulin Detemir 10 units 07/19/16 22:00 07/19/16 22:27 Levemir Vial SQ 10 units HS KEVIN Administration Latanoprost 1 drop 07/17/16 22:00 07/19/16 22:27 Xalatan 0.005% Eye Drops - OU 1 drp HS KEVIN Administration Multivitamins/Minerals/Vitamin C 1 tab 07/17/16 10:00 07/20/16 10:01 Tab-A-Vit - PO 1 tab DAILY KEVIN Administration Pantoprazole Sodium 40 mg 07/17/16 10:00 07/20/16 10:02 Protonix - PO 40 mg DAILY KEVIN Administration Impression 1. CKD 2. HTN 3. hyperlipidemia 4. r/o acs 5. DM Plan - unclear what pts baseline renal function is - can monitor for now and if stable will see as outpt - check bladder ultrasound - cont current meds - can hold lasix tomorrow until labs reviewed - put a call out to PMD - unclear what liver status is, he says he has a history of etoh abuse many years ago
--- NOTE | 2016-07-20 17:40 | EKG ---
Test Reason : Blood Pressure : / mmHG Vent. Rate : 056 BPM Atrial Rate : 056 BPM P-R Int : 136 ms QRS Dur : 080 ms QT Int : 436 ms P-R-T Axes : 018 008 081 degrees QTc Int : 420 ms SINUS BRADYCARDIA WHEN COMPARED WITH ECG OF 17-JUL-2016 02:53, T WAVE VARIATION Confirmed by MAEGAN ASH MD ([id number]) on 07/20/2016 5:40:01 PM Referred By: MAEGAN ASH Confirmed By:MAEGAN ASH MD
[2016-07-20] MEDS: INSULIN DETEMIR 100 UNITS/ML MDV SQ SCH (22:16)
[2016-07-20 23:25] LABS: URINE APPEARANCE CLEAR; URINE BILIRUBIN NEGATIVE (NEGATIVE); URINE BLOOD NEGATIVE (NEGATIVE); URINE COLOR STRAW; URINE GLUCOSE (UA) 1+ (NEGATIVE); URINE KETONE NEGATIVE (NEGATIVE); URINE LEUK ESTERASE NEGATIVE (NEGATIVE); URINE NITRITE NEGATIVE (NEGATIVE); URINE PROTEIN NEGATIVE (NEGATIVE); URINE UROBILINOGEN NEGATIVE E.U./dl (0.2-1.0)
[2016-07-20] MEDS: LATANOPROST 0.005% OPHTH SOLN 2.5ML BOTTLE OU SCH (23:45)
[2016-07-21] MEDS: INSULIN SLIDING SCALE (NOVOLOG) 1 VIAL SQ SCH ×4 (06:49→22:08)
[2016-07-21] MEDS: INSULIN DETEMIR 100 UNITS/ML MDV SQ SCH ×2 (06:49→22:07)
--- NOTE | 2016-07-21 08:17 | PN ---
Progress Note, Physician Chief Complaint: Events noted Denies chest pain History of Present Illness: Patient was seen and examined. Awake and alert. Chart was reviewed Denies chest pain, SOB or palpitations Echocardiography and nuclear myocardial perfusion imaging result noted. Orthostasis yesterday and medication was adjusted - Current Medication List Current Medications: Active Medications Acetaminophen (Tylenol -) 500 mg PO Q6H PRN PRN Reason: PAIN Last Admin: 07/18/16 12:40 Dose: 500 mg Amlodipine Besylate (Norvasc -) 5 mg PO DAILY [facility] Aspirin (Asa -) 81 mg PO DAILY [facility] Last Admin: 07/20/16 10:01 Dose: 81 mg Bacitracin (Bacitracin -) 1 applic TP DAILY [facility] Last Admin: 07/20/16 10:02 Dose: 1 applic Calcitriol (Rocaltrol -) 0.25 mcg PO DAILY [facility] Last Admin: 07/20/16 10:03 Dose: 0.25 mcg Carvedilol (Coreg -) 12.5 mg PO BID [facility] Last Admin: 07/20/16 22:15 Dose: 12.5 mg Duloxetine HCl (Cymbalta -) 30 mg PO DAILY [facility] Last Admin: 07/20/16 10:01 Dose: 30 mg Furosemide (Lasix -) 40 mg PO DAILY [facility] Last Admin: 07/20/16 10:02 Dose: 40 mg Gabapentin (Neurontin -) 300 mg PO BID [facility] Last Admin: 07/20/16 22:15 Dose: 300 mg Heparin Sodium (Porcine) (Heparin -) 5,000 unit SQ BID [facility] Last Admin: 07/20/16 22:16 Dose: 5,000 unit Insulin Aspart (Novolog Vial Sliding Scale -) 0 vial SQ ACHS [facility] PRN Reason: Protocol Last Admin: 07/21/16 06:49 Dose: 6 units Insulin Detemir (Levemir Vial) 10 units SQ BID@0700,2200 [facility] Last Admin: 07/21/16 06:49 Dose: 10 units Latanoprost (Xalatan 0.005% Eye Drops -) 1 drop OU HS [facility] Last Admin: 07/20/16 23:45 Dose: Not Given Multivitamins/Minerals/Vitamin C (Tab-A-Vit -) 1 tab PO DAILY [facility] Last Admin: 07/20/16 10:01 Dose: 1 tab Pantoprazole Sodium (Protonix -) 40 mg PO DAILY [facility] Last Admin: 07/20/16 10:02 Dose: 40 mg - Objective Vital Signs: Vital Signs Temperature 98.1 F 07/21/16 06:00 Pulse Rate 64 07/21/16 06:00 Respiratory Rate 18 07/21/16 06:00 Blood Pressure 136/75 07/21/16 06:00 O2 Sat by Pulse Oximetry (%) 94 L 07/20/16 21:00 Neck: Yes: Supple Cardiovascular: Yes: Regular Rate and Rhythm, S1, S2 Respiratory: Yes: CTA Bilaterally Gastrointestinal: Yes: Normal Bowel Sounds, Soft. No: Tenderness Edema: No Additional Findings/Remarks: - Review of Systems Cardiovascular: As noted above Respiratory: denies: Cough or Sputum Production Gastrointestinal: denies: Nausea, Vomiting, Diarrhea, Constipation or Abdominal Pain Musculoskeletal: No symptoms reported Neurological: Foot drop and spinal stenosis Labs: CBC, BMP 07/20/16 12:45 INR, PTT INR 0.97 (0.82-1.09) 07/16/16 10:43 Problem List - Problems (1) CKD (chronic kidney disease) Code(s): N18.9 - CHRONIC KIDNEY DISEASE, UNSPECIFIED (2) Chest pain Code(s): R07.9 - CHEST PAIN, UNSPECIFIED Qualifiers: Chest pain type: unspecified Qualified Code(s): R07.9 - Chest pain, unspecified (3) Diabetes mellitus Code(s): E11.9 - TYPE 2 DIABETES MELLITUS WITHOUT COMPLICATIONS Qualifiers: Diabetes mellitus type: type 2 Diabetes mellitus complication status: without complication Diabetes mellitus penitentiary insulin use: without terminal supervisor use Qualified Code(s): E11.9 - Type 2 diabetes mellitus without complications (4) HTN (hypertension) Code(s): I10 - ESSENTIAL (PRIMARY) HYPERTENSION Qualifiers: Hypertension type: essential hypertension Qualified Code(s): I10 - Essential (primary) hypertension (5) Neuropathy due to type 2 diabetes mellitus Code(s): E11.40 - TYPE 2 DIABETES MELLITUS WITH DIABETIC NEUROPATHY, UNSP Assessment/Plan 1. Chest pain syndrome, CAD angina pectoris with borderline Troponin I elevation not indicative of ACS clinically 2. Diastolic LV dysfunction with class 0-I NYHA classification LV failure 3. HTN 4. IDDM 5. Hypercholesterolemia 6. Cervical Spinal Stenosis 7. CKD 8. Neuropathy 9. Orthostasis PLAN: 1. Continue Coreg and titrate dosage as tolerated and continue Norvasc at a lower dose. Clonidine was stopped 2. Ideally should be on ACEI or ARB unless contraindicated, pending renal function improvement and stabilization and if BP permits 3. Continue PO Lasix as tolerated 4. Continue ASA 5. Cardiac testing result reviewed Further plans are to follow. If not orthostatic, discharge planning Aydin Smalls MD
[2016-07-21 08:30] LABS: CALCIUM 8.3 mg/dL (8.5-10.1)
[2016-07-21 08:36] LABS: CREATININE 3.1 mg/dL (0.7-1.3)
[2016-07-21] MEDS: GABAPENTIN 300 MG CAPSULE (FP) PO SCH ×2 (09:42→22:07)
[2016-07-21] MEDS: CARVEDILOL 12.5 MG TABLET (FP) PO SCH ×2 (09:42→22:07)
[2016-07-21] MEDS: MULTIVITAMINS (DAILY MVI) TABLET (FP) PO SCH (09:42)
[2016-07-21] MEDS: ASPIRIN 81 MG CHEWABLE TABLETS PO SCH (09:42)
[2016-07-21] MEDS: BACITRACIN 30 GM TUBE TOPICAL OINTMENT TP SCH (09:42)
[2016-07-21] MEDS: DULoxetine HCL 30 MG CAPSULE.DR (FP) PO SCH (09:42)
[2016-07-21] MEDS: PANTOPRAZOLE 40 MG TABLET (FP) PO SCH (09:42)
[2016-07-21] MEDS: CALCITRIOL 0.25 MCG CAPSULE (FP) PO SCH (09:43)
[2016-07-21] MEDS: HEPARIN NA (PORCINE) 5,000 UNITS/ML 1ML VIAL SQ SCH ×2 (09:43→22:07)
[2016-07-21] MEDS ORDERED: amLODIPine BESYLATE 5 MG TABLET (FP) PO SCH (10:00)
--- NOTE | 2016-07-21 12:15 | PN ---
Progress Note, Physician History of Present Illness: Pt seen and examined at bedside. He is awake and alert. He denies shortness of breath. - Current Medication List Current Medications: Active Medications Acetaminophen (Tylenol -) 500 mg PO Q6H PRN PRN Reason: PAIN Last Admin: 07/18/16 12:40 Dose: 500 mg Amlodipine Besylate (Norvasc -) 5 mg PO DAILY [facility] Last Admin: 07/21/16 09:42 Dose: 5 mg Aspirin (Asa -) 81 mg PO DAILY [facility] Last Admin: 07/21/16 09:42 Dose: 81 mg Bacitracin (Bacitracin -) 1 applic TP DAILY [facility] Last Admin: 07/21/16 09:42 Dose: 1 applic Calcitriol (Rocaltrol -) 0.25 mcg PO DAILY [facility] Last Admin: 07/21/16 09:43 Dose: 0.25 mcg Carvedilol (Coreg -) 12.5 mg PO BID [facility] Last Admin: 07/21/16 09:42 Dose: 12.5 mg Duloxetine HCl (Cymbalta -) 30 mg PO DAILY [facility] Last Admin: 07/21/16 09:42 Dose: 30 mg Furosemide (Lasix -) 40 mg PO DAILY [facility] Last Admin: 07/20/16 10:02 Dose: 40 mg Gabapentin (Neurontin -) 300 mg PO BID [facility] Last Admin: 07/21/16 09:42 Dose: 300 mg Heparin Sodium (Porcine) (Heparin -) 5,000 unit SQ BID [facility] Last Admin: 07/21/16 09:43 Dose: 5,000 unit Insulin Aspart (Novolog Vial Sliding Scale -) 0 vial SQ ACHS [facility] PRN Reason: Protocol Last Admin: 07/21/16 06:49 Dose: 6 units Insulin Detemir (Levemir Vial) 10 units SQ BID@0700,2200 [facility] Last Admin: 07/21/16 06:49 Dose: 10 units Latanoprost (Xalatan 0.005% Eye Drops -) 1 drop OU HS [facility] Last Admin: 07/20/16 23:45 Dose: Not Given Multivitamins/Minerals/Vitamin C (Tab-A-Vit -) 1 tab PO DAILY [facility] Last Admin: 07/21/16 09:42 Dose: 1 tab Pantoprazole Sodium (Protonix -) 40 mg PO DAILY [facility] Last Admin: 07/21/16 09:42 Dose: 40 mg - Objective Vital Signs: Vital Signs Temperature 98.1 F 07/21/16 06:00 Pulse Rate 64 07/21/16 06:00 Respiratory Rate 18 07/21/16 06:00 Blood Pressure 136/75 07/21/16 06:00 O2 Sat by Pulse Oximetry (%) 94 L 07/20/16 21:00 Constitutional: Yes: Calm Eyes: Yes: WNL Cardiovascular: Yes: S1, S2 Respiratory: Yes: CTA Bilaterally Gastrointestinal: Yes: Soft Genitourinary: Yes: WNL Musculoskeletal: Yes: WNL Extremities: Yes: WNL Edema: No Neurological: Yes: Oriented Psychiatric: Yes: Oriented Labs: CBC, BMP 07/20/16 12:45 07/21/16 05:35 INR, PTT INR 0.97 (0.82-1.09) 07/16/16 10:43 Problem List - Problems (1) CKD (chronic kidney disease) Code(s): N18.9 - CHRONIC KIDNEY DISEASE, UNSPECIFIED (2) Diabetes mellitus Code(s): E11.9 - TYPE 2 DIABETES MELLITUS WITHOUT COMPLICATIONS Qualifiers: Diabetes mellitus type: type 2 Diabetes mellitus complication status: without complication Diabetes mellitus halfway insulin use: without ferry terminal agent use Qualified Code(s): E11.9 - Type 2 diabetes mellitus without complications (3) HTN (hypertension) Code(s): I10 - ESSENTIAL (PRIMARY) HYPERTENSION Qualifiers: Hypertension type: essential hypertension Qualified Code(s): I10 - Essential (primary) hypertension Assessment/Plan Current Medications Generic Name Dose Route Start Last Admin Trade Name Freq PRN Reason Stop Dose Admin Acetaminophen 500 mg 07/17/16 00:50 07/18/16 12:40 Tylenol - PO 500 mg Q6H PRN Administration PAIN Amlodipine Besylate 5 mg 07/21/16 10:00 07/21/16 09:42 Norvasc - PO 5 mg DAILY [facility]EVIN Administration Aspirin 81 mg 07/17/16 10:00 07/21/16 09:42 Asa - PO 81 mg DAILY [facility] Administration Bacitracin 1 applic 07/17/16 10:00 07/21/16 09:42 Bacitracin - TP 1 applic DAILY [facility] Administration Calcitriol 0.25 mcg 07/17/16 10:00 07/21/16 09:43 Rocaltrol - PO 0.25 mcg DAILY [facility] Administration Carvedilol 12.5 mg 07/18/16 09:59 07/21/16 09:42 Coreg - PO 12.5 mg BID KEVIN Administration Duloxetine HCl 30 mg 07/17/16 10:00 07/21/16 09:42 Cymbalta - PO 30 mg DAILY [facility] Administration Furosemide 40 mg 07/17/16 10:00 07/20/16 10:02 Lasix - PO 40 mg DAILY [facility] Administration Gabapentin 300 mg 07/17/16 10:00 07/21/16 09:42 Neurontin - PO 300 mg BID [facility]EV[facility] Administration Heparin Sodium (Porcine) 5,000 unit 07/17/16 10:00 07/21/16 09:43 Heparin - SQ 5,000 unit BID KEVIN Administration Insulin Aspart 0 vial 07/16/16 22:00 07/21/16 12:12 Novolog Vial Sliding Scale - SQ 8 units ACHS [facility]EVNI Administration Protocol Insulin Detemir 10 units 07/20/16 22:00 07/21/16 06:49 Levemir Vial SQ 10 units BID@0700,2200 [facility] Administration Latanoprost 1 drop 07/17/16 22:00 07/20/16 23:45 Xalatan 0.005% Eye Drops - OU Not Given HS [facility] Multivitamins/Minerals/Vitamin C 1 tab 07/17/16 10:00 07/21/16 09:42 Tab-A-Vit - PO 1 tab DAILY [facility] Administration Pantoprazole Sodium 40 mg 07/17/16 10:00 07/21/16 09:42 Protonix - PO 40 mg DAILY KEVIN Administration Impression 1. CKD 2. HTN 3. hyperlipidemia 4. r/o acs 5. DM Plan - pt has baseline creatinine of about 2.5 - renal function is better today - will need outpt follow up - resume lasix - renal ultrasound reviewed, consistent with CKD - cardio input appreciated Dr Mcghee
--- NOTE | 2016-07-21 16:22 | PN ---
Physical Exam: SUBJECTIVE: Patient seen and examined. Pt reports feeling much better. Denies dizziness upon standing. Reports still with some left side/rib pain at times. OBJECTIVE: Vital Signs - 24 hr 3 07/20/16 07/20/16 07/20/16 16:16 17:00 17:13 Temperature 98.2 F 97.7 F Pulse Rate 72 63 Pulse Rate [ 74 Left side Sitting] Pulse Rate [ 76 Left side Standing] Pulse Rate [ 78 Left side Supine] Respiratory 20 18 Rate Blood Pressure 130/81 120/70 Blood Pressure 124/83 [Left side Sitting] Blood Pressure 79/51 [Left side Standing] Blood Pressure 137/74 [Left side Supine] O2 Sat by Pulse Oximetry (%) 3 07/20/16 07/20/16 07/21/16 07/21/16 07/21/16 20:00 22:00 02:00 06:00 14:54 Temperature 97.2 F L 97.7 F 97.2 98.1 97.8 F Pulse Rate 70 62 69 64 65 Pulse Rate [ Left side Sitting] Pulse Rate [ Left side Standing] Pulse Rate [ Left side Supine] Respiratory 20 18 20 Rate 18 18 Blood Pressure 92/65 112/65 100/54 136/75 138/60 Blood Pressure [Left side Sitting] Blood Pressure [Left side Standing] Blood Pressure [Left side Supine] O2 Sat by Pulse Oximetry (%) Orthostatics: 4PM layin/77 P62 sitting 135/66 P67 Standin/40 P72 GENERAL: The patient is awake, alert, and fully oriented, in no acute distress. HEAD: Normal with no signs of trauma. EYES: PERRL, extraocular movements intact, sclera anicteric, conjunctiva clear. No ptosis. ENT: Ears normal, nares patent, oropharynx clear without exudates, moist mucous membranes. NECK: Trachea midline, full range of motion, supple. LUNGS: Breath sounds equal, clear to auscultation bilaterally, no wheezes, no crackles, no accessory muscle use. HEART: Regular rate and rhythm, S1, S2 without murmur, rub or gallop. ABDOMEN: Soft, nontender, nondistended, normoactive bowel sounds, no guarding, no rebound, no hepatosplenomegaly, no masses. EXTREMITIES: 2+ pulses, warm, well-perfused, no edema. NEUROLOGICAL: Cranial nerves II through XII grossly intact. Normal speech, gait not observed. PSYCH: Normal mood, normal affect. SKIN: Warm, dry, normal turgor, no rashes or lesions noted Laboratory Results - last 24 hr 3 07/20/16 07/20/16 07/20/16 11:35 17:31 22:14 Sodium Potassium Chloride Carbon Dioxide Anion Gap BUN Creatinine POC Glucometer 299 226 Random Glucose Calcium Ammonia < 9 L Urine Color Urine Appearance Urine pH Ur Specific [place] Urine Protein Urine Glucose (UA) Urine Ketones Urine Blood Urine Nitrite Urine Bilirubin Urine Urobilinogen Ur Leukocyte Esterase 3 07/20/16 07/21/16 07/21/16 07/21/16 23:01 05:35 05:59 11:59 Sodium 134 L Potassium 4.4 Chloride 99 Carbon Dioxide 24 Anion Gap 11 BUN 50 H Creatinine 3.1 H POC Glucometer 282 321 Random Glucose 326 H* D Calcium 8.3 L Ammonia Urine Color Straw Urine Appearance Clear Urine pH 5.0 Ur Specific [place] 1.004 Urine Protein Negative Urine Glucose (UA) 1+ H Urine Ketones Negative Urine Blood Negative Urine Nitrite Negative Urine Bilirubin Negative Urine Urobilinogen Negative Ur Leukocyte Esterase Negative Active Medications 3 Generic Name Dose Route Start Last Admin Trade Name Freq PRN Reason Stop Dose Admin Acetaminophen 500 mg 07/17/16 00:50 07/18/16 12:40 Tylenol - PO 500 mg Q6H PRN Administration PAIN Amlodipine Besylate 5 mg 07/21/16 10:00 07/21/16 09:42 Norvasc - PO 5 mg DAILY [facility] Administration Aspirin 81 mg 07/17/16 10:00 07/21/16 09:42 Asa - PO 81 mg DAILY [facility] Administration Bacitracin 1 applic 07/17/16 10:00 07/21/16 09:42 Bacitracin - TP 1 applic DAILY [facility] Administration Calcitriol 0.25 mcg 07/17/16 10:00 07/21/16 09:43 Rocaltrol - PO 0.25 mcg DAILY [facility] Administration Carvedilol 12.5 mg 07/18/16 09:59 07/21/16 09:42 Coreg - PO 12.5 mg BID [facility] Administration Duloxetine HCl 30 mg 07/17/16 10:00 07/21/16 09:42 Cymbalta - PO 30 mg DAILY [facility] Administration Furosemide 40 mg 07/17/16 10:00 07/20/16 10:02 Lasix - PO 40 mg DAILY [facility] Administration Gabapentin 300 mg 07/17/16 10:00 07/21/16 09:42 Neurontin - PO 300 mg BID [facility] Administration Heparin Sodium (Porcine) 5,000 unit 07/17/16 10:00 07/21/16 09:43 Heparin - SQ 5,000 unit BID [facility] Administration Insulin Aspart 0 vial 07/16/16 22:00 07/21/16 12:12 Novolog Vial Sliding Scale - SQ 8 units ACHS [facility] Administration Protocol Insulin Detemir 10 units 07/20/16 22:00 07/21/16 06:49 Levemir Vial SQ 10 units BID@0700,2200 [facility] Administration Latanoprost 1 drop 07/17/16 22:00 07/20/16 23:45 Xalatan 0.005% Eye Drops - OU Not Given HS [facility] Multivitamins/Minerals/Vitamin C 1 tab 07/17/16 10:00 07/21/16 09:42 Tab-A-Vit - PO 1 tab DAILY [facility] Administration Pantoprazole Sodium 40 mg 07/17/16 10:00 07/21/16 09:42 Protonix - PO 40 mg DAILY [facility] Administration ASSESSMENT/PLAN: This is a 60 year old male with PMHx of DM, HTN, CKD (RTA4), cervical spinal stenosis, neuropathy, R- Foot Drop, atrophy, depression who presented to the ED after being found unresponsive with a BGM of 30 (responded to D10). He also reported chest pain and thus was admitted for further evaluation. Orthostatic hypotension - clonidine DC yesterday, norvasc decreased to 5 yesterday - remains orthostatic despite medication changes yesterday. Will dc norvasc - repeat orthostatics in AM. - cardiology consulted, aware of findings and in agreement with plan. DM - hypoglycemic episode resolved - blood sugars remain in 200s, will increase levemir to 12u BID - cont to monitor BGM - cont novolog SS chest pain - ACS ruled out, stress test grossly normal - cont coreg, ASA CKD (RTA4) with JESSIE - baseline Cr 2.5-2.6 as per nurse at [facility], slight improvement , renal consult appreciated - creatinine trending down off lasix. No s/s fluid overload. COnt to hold lasix - renal sono c/w CKD - will need outpatient renal f/u upon DC elevated ammonia level - repeat normal, no further testing needed unless change in mental status Depression - cont home meds. FEN - tolerating po - monitor BMP in am - sodium/diabetic diet Dispo: Pt continues to require inpatient care. Visit type - Emergency Visit Emergency Visit: Yes ED Registration Date: 07/16/16 Care time: The patient presented to the Emergency Department on the above date and was hospitalized for further evaluation of their emergent condition. - New Patient This patient is new to me today: No - Critical Care Critical Care patient: No - Discharge Referral Referred to [facility] Med [facility] No
[2016-07-21] MEDS: LATANOPROST 0.005% OPHTH SOLN 2.5ML BOTTLE OU SCH ×2 (22:08→22:17)
[2016-07-21] MEDS ORDERED: PT OWN MED DRAWER 7, Y5N ONE (22:15)
[2016-07-22] MEDS: INSULIN DETEMIR 100 UNITS/ML MDV SQ SCH ×2 (06:33→22:49)
[2016-07-22] MEDS: INSULIN SLIDING SCALE (NOVOLOG) 1 VIAL SQ SCH ×4 (06:34→22:49)
[2016-07-22 08:07] LABS: BASOPHIL 0.5 % (0-2.0); EOSINOPHIL 3.5 % (0-4.5); MCH 31.9 pg (25.7-33.7); MCHC 33.2 g/dl (32.0-35.9); MEAN CELL VOLUME 96.1 fl (80-96); MEAN PLT VOLUME 10.5 fl (7.5-11.1); NEUTROPHILS 67.1 % (42.8-82.8); PLATELET COUNT 142 K/MM3 (134-434); RDW 13.9 % (11.9-15.9); WHITE BLOOD COUNT 7.1 K/mm3 (4.0-10.0)
[2016-07-22 08:53] LABS: CALCIUM 8.7 mg/dL (8.5-10.1); CREATININE 3.2 mg/dL (0.7-1.3); MAGNESIUM 2.3 mg/dL (1.8-2.4); PHOSPHOROUS 3.2 mg/dL (2.5-4.9)
[2016-07-22] MEDS: GABAPENTIN 300 MG CAPSULE (FP) PO SCH ×2 (09:54→22:49)
[2016-07-22] MEDS: DULoxetine HCL 30 MG CAPSULE.DR (FP) PO SCH (09:54)
[2016-07-22] MEDS: PANTOPRAZOLE 40 MG TABLET (FP) PO SCH (09:54)
[2016-07-22] MEDS: ASPIRIN 81 MG CHEWABLE TABLETS PO SCH (09:54)
[2016-07-22] MEDS: MULTIVITAMINS (DAILY MVI) TABLET (FP) PO SCH (09:55)
[2016-07-22] MEDS: CALCITRIOL 0.25 MCG CAPSULE (FP) PO SCH (09:55)
[2016-07-22] MEDS: BACITRACIN 30 GM TUBE TOPICAL OINTMENT TP SCH (09:55)
[2016-07-22] MEDS: HEPARIN NA (PORCINE) 5,000 UNITS/ML 1ML VIAL SQ SCH (09:55)
--- NOTE | 2016-07-22 10:29 | PN ---
Progress Note, Physician Chief Complaint: Events noted Remains orthostatic - supine 123/66 mmHg --> sitting 88/61 mmHg --> standing 57/ 39 mmHg History of Present Illness: Patient was seen and examined. Awake and alert. Chart was reviewed As outlined. Denies chest pain, SOB or palpitation - Current Medication List Current Medications: Active Medications Acetaminophen (Tylenol -) 500 mg PO Q6H PRN PRN Reason: PAIN Last Admin: 07/18/16 12:40 Dose: 500 mg Aspirin (Asa -) 81 mg PO DAILY [facility] Last Admin: 07/22/16 09:54 Dose: 81 mg Bacitracin (Bacitracin -) 1 applic TP DAILY [facility] Last Admin: 07/22/16 09:55 Dose: 1 applic Calcitriol (Rocaltrol -) 0.25 mcg PO DAILY [facility] Last Admin: 07/22/16 09:55 Dose: 0.25 mcg Carvedilol (Coreg -) 12.5 mg PO BID [facility] Last Admin: 07/21/16 22:07 Dose: 12.5 mg Duloxetine HCl (Cymbalta -) 30 mg PO DAILY [facility] Last Admin: 07/22/16 09:54 Dose: 30 mg Gabapentin (Neurontin -) 300 mg PO BID [facility] Last Admin: 07/22/16 09:54 Dose: 300 mg Heparin Sodium (Porcine) (Heparin -) 5,000 unit SQ BID [facility] Last Admin: 07/22/16 09:55 Dose: 5,000 unit Insulin Aspart (Novolog Vial Sliding Scale -) 0 vial SQ ACHS [facility] PRN Reason: Protocol Last Admin: 07/22/16 06:34 Dose: 4 units Insulin Detemir (Levemir Vial) 12 units SQ BID@0700,2200 [facility] Last Admin: 07/22/16 06:33 Dose: 12 units Latanoprost (Xalatan 0.005% Eye Drops -) 1 drop OU HS [facility] Last Admin: 07/21/16 22:17 Dose: Not Given Multivitamins/Minerals/Vitamin C (Tab-A-Vit -) 1 tab PO DAILY [facility] Last Admin: 07/22/16 09:55 Dose: 1 tab Pantoprazole Sodium (Protonix -) 40 mg PO DAILY [facility] Last Admin: 07/22/16 09:54 Dose: 40 mg - Objective Vital Signs: Vital Signs Temperature 98 F 07/22/16 05:00 Pulse Rate 65 04/06/17 05:00 Respiratory Rate 18 07/22/16 05:00 Blood Pressure 109/59 07/22/16 05:00 O2 Sat by Pulse Oximetry (%) 95 07/21/16 21:00 Neck: Yes: Supple Cardiovascular: Yes: Regular Rate and Rhythm, S1, S2 Respiratory: Yes: CTA Bilaterally Gastrointestinal: Yes: Normal Bowel Sounds, Soft. No: Tenderness Edema: No Additional Findings/Remarks: - Review of Systems Cardiovascular: As noted above Respiratory: denies: Cough or Sputum Production Gastrointestinal: denies: Nausea, Vomiting, Diarrhea, Constipation or Abdominal Pain Musculoskeletal: No symptoms reported Neurological: Foot drop and spinal stenosis Labs: CBC, BMP 07/22/16 05:50 07/22/16 05:50 Problem List - Problems (1) CKD (chronic kidney disease) Code(s): N18.9 - CHRONIC KIDNEY DISEASE, UNSPECIFIED (2) Chest pain Code(s): R07.9 - CHEST PAIN, UNSPECIFIED Qualifiers: Chest pain type: unspecified Qualified Code(s): R07.9 - Chest pain, unspecified (3) Diabetes mellitus Code(s): E11.9 - TYPE 2 DIABETES MELLITUS WITHOUT COMPLICATIONS Qualifiers: Diabetes mellitus type: type 2 Diabetes mellitus complication status: without complication Diabetes mellitus nursing home insulin use: without nursing home use Qualified Code(s): E11.9 - Type 2 diabetes mellitus without complications (4) HTN (hypertension) Code(s): I10 - ESSENTIAL (PRIMARY) HYPERTENSION Qualifiers: Hypertension type: essential hypertension Qualified Code(s): I10 - Essential (primary) hypertension (5) Neuropathy due to type 2 diabetes mellitus Code(s): E11.40 - TYPE 2 DIABETES MELLITUS WITH DIABETIC NEUROPATHY, UNSP Assessment/Plan 1. Chest pain syndrome, CAD angina pectoris with borderline Troponin I elevation not indicative of ACS clinically - now resolved 2. Orthostatic hypotension - etiology to be determined 3. Diastolic LV dysfunction with class 0-I NYHA classification LV failure 4. HTN 5. IDDM 6. Hypercholesterolemia 7. Cervical Spinal Stenosis 8. CKD 9. Neuropathy PLAN: 1. Hold Coreg today and consider reducing dose. Amlodipine and Clonidine has been stopped. 2. Discontinue Heparin SQ 3. Discontinue Cymbalta as it may cause orthostasis 4. Continue ASA 5. Continue monitoring for orthostasis. Discharge planning when stable Further plans are to follow Aydin Smalls MD
--- NOTE | 2016-07-22 11:14 | PN ---
Progress Note (short form) - Note Progress Note: Subjective: The patient was seen at the bedside, he states he felt "woozy" this AM. Remains orthostatic - supine 123/66 mmHg -> sitting 88/61 mmHg -> standing 57/ 39 mmHg Current Medications Generic Name Dose Route Start Last Admin Trade Name Freq PRN Reason Stop Dose Admin Acetaminophen 500 mg 07/17/16 00:50 07/18/16 12:40 Tylenol - PO 500 mg Q6H PRN Administration PAIN Aspirin 81 mg 07/17/16 10:00 07/22/16 09:54 Asa - PO 81 mg DAILY [facility] Administration Bacitracin 1 applic 07/17/16 10:00 07/22/16 09:55 Bacitracin - TP 1 applic DAILY [facility] Administration Calcitriol 0.25 mcg 07/17/16 10:00 07/22/16 09:55 Rocaltrol - PO 0.25 mcg DAILY [facility] Administration Carvedilol 12.5 mg 07/18/16 09:59 07/21/16 22:07 Coreg - PO 12.5 mg BID [facility] Administration Gabapentin 300 mg 07/17/16 10:00 07/22/16 09:54 Neurontin - PO 300 mg BID [facility] Administration Insulin Aspart 0 vial 07/16/16 22:00 07/22/16 06:34 Novolog Vial Sliding Scale - SQ 4 units ACHS [facility] Administration Protocol Insulin Detemir 12 units 07/21/16 16:20 07/22/16 06:33 Levemir Vial SQ 12 units BID@0700,2200 [facility] Administration Latanoprost 1 drop 07/17/16 22:00 07/21/16 22:17 Xalatan 0.005% Eye Drops - OU Not Given HS [facility] Multivitamins/Minerals/Vitamin C 1 tab 07/17/16 10:00 07/22/16 09:55 Tab-A-Vit - PO 1 tab DAILY [facility] Administration Pantoprazole Sodium 40 mg 07/17/16 10:00 07/22/16 09:54 Protonix - PO 40 mg DAILY [facility] Administration Objective: Vital Signs Period Temp Pulse Resp BP Sys/Crowell Pulse Ox Last 24 Hr 97.8 F-98.8 F 59-80 17-20 57-138/39-74 95 Physical Exam: General: NAD, A&Ox3 Lungs: CTA bilaterally Heart: RRR, S1S2 Abd: Soft, non-tender, non-distended. Normoactive bowel sounds Ext: Warm, well-perfused. 2+ DP/PT bilaterally Neuro: CN 2-12 intact CBCD WBC 7.1 K/mm3 (4.0-10.0) 07/22/16 05:50 RBC 4.25 M/mm3 (4.00-5.60) 07/22/16 05:50 Hgb 13.5 GM/dL (11.7-16.9) 07/22/16 05:50 Hct 40.8 % (35.4-49) 07/22/16 05:50 MCV 96.1 fl (80-96) H 07/22/16 05:50 MCHC 33.2 g/dl (32.0-35.9) 07/22/16 05:50 RDW 13.9 % (11.9-15.9) 07/22/16 05:50 Plt Count 142 K/MM3 (134-434) 07/22/16 05:50 MPV 10.5 fl (7.5-11.1) 07/22/16 05:50 CMP Sodium 136 mmol/L (136-145) 07/22/16 05:50 Potassium 4.2 mmol/L (3.5-5.1) 07/22/16 05:50 Chloride 101 mmol/L (98-107) 07/22/16 05:50 Carbon Dioxide 22 mmol/L (21-32) 07/22/16 05:50 Anion Gap 13 (8-16) 07/22/16 05:50 BUN 53 mg/dL (7-18) H 07/22/16 05:50 Creatinine 3.2 mg/dL (0.7-1.3) H 07/22/16 05:50 Creat Clearance w eGFR 26.48 (>60) 07/18/16 06:02 Random Glucose 267 mg/dL (74-106) H 07/22/16 05:50 Calcium 8.7 mg/dL (8.5-10.1) 07/22/16 05:50 Total Bilirubin 0.6 mg/dL (0.2-1.0) D 07/18/16 06:02 AST 17 U/L (15-37) 07/18/16 06:02 ALT 19 U/L (12-78) 07/18/16 06:02 Alkaline Phosphatase 80 U/L (45-117) 07/18/16 06:02 Total Protein 7.1 g/dl (6.4-8.2) 07/18/16 06:02 Albumin 3.5 g/dl (3.4-5.0) 07/18/16 06:02 CARDIAC ENZYMES Creatine Kinase 156 IU/L (39-308) 07/17/16 06:07 Troponin I 0.13 ng/ml (0.00-0.05) H D 07/17/16 06:07 Assessment: This is a 60 year old male with PMHx of IDDM, HTN, CKD (RTA4), cervical spinal stenosis, neuropathy, R- Foot Drop, atrophy, depression who presented to the ED after being found unresponsive with a BGM of 30 (responded to D10). Plan: 1) Cardiology: Chest pain - Trops elevated, however trended down. Per cardiology, not indicative of ACS clinically. No EKG acute changes - ECHO reviewed - Persantine stress overall negative. EF 67% Diastolic LV dysfunction - Hold Coreg, Lasix, Norvasc, Clonidine 2/2 significant orthostatic hypotension - Continue ASA - Appreciate cardiology consult HTN - As above 2) : CKD - Baseline Cr 2.5-2.6 - Cr remains elevated 3.2 (patient reports urinating with no issues) - Renal ultrasound consistent with CKD - Continue to monitor - Appreciate nephrology consult 3) Endocrine: IDDM - BGM ACHS - ISS ACHS - Continue Levemir 12u sq bid 4) F/E/N: - Monitor electrolytes - Sodium controlled diet 5) Prophylaxis: - OOB ambulating - Heparin 5,000u sq bid 6) Dispo: - Requires continued inpatient care CODE STATUS: FULL CODE Visit type - Emergency Visit Emergency Visit: Yes ED Registration Date: 07/16/16 Care time: The patient presented to the Emergency Department on the above date and was hospitalized for further evaluation of their emergent condition. - New Patient This patient is new to me today: No - Critical Care Critical Care patient: No
--- NOTE | 2016-07-22 14:25 | PN ---
Progress Note, Physician History of Present Illness: Pt seen and examined at bedside. He was hypotensive yesterday and BP meds adjusted. He is awake and alert. He denies dysuria. - Current Medication List Current Medications: Active Medications Acetaminophen (Tylenol -) 500 mg PO Q6H PRN PRN Reason: PAIN Last Admin: 07/18/16 12:40 Dose: 500 mg Aspirin (Asa -) 81 mg PO DAILY [facility] Last Admin: 07/22/16 09:54 Dose: 81 mg Bacitracin (Bacitracin -) 1 applic TP DAILY [facility] Last Admin: 07/22/16 09:55 Dose: 1 applic Calcitriol (Rocaltrol -) 0.25 mcg PO DAILY [facility] Last Admin: 07/22/16 09:55 Dose: 0.25 mcg Carvedilol (Coreg -) 12.5 mg PO BID [facility] Last Admin: 07/21/16 22:07 Dose: 12.5 mg Gabapentin (Neurontin -) 300 mg PO BID [facility] Last Admin: 07/22/16 09:54 Dose: 300 mg Insulin Aspart (Novolog Vial Sliding Scale -) 0 vial SQ ACHS [facility] PRN Reason: Protocol Last Admin: 07/22/16 12:45 Dose: 6 units Insulin Detemir (Levemir Vial) 12 units SQ BID@0700,2200 [facility] Last Admin: 07/22/16 06:33 Dose: 12 units Latanoprost (Xalatan 0.005% Eye Drops -) 1 drop OU HS [facility] Last Admin: 07/21/16 22:17 Dose: Not Given Multivitamins/Minerals/Vitamin C (Tab-A-Vit -) 1 tab PO DAILY [facility] Last Admin: 07/22/16 09:55 Dose: 1 tab Pantoprazole Sodium (Protonix -) 40 mg PO DAILY [facility] Last Admin: 07/22/16 09:54 Dose: 40 mg - Objective Vital Signs: Vital Signs Temperature 98 F 07/22/16 05:00 Pulse Rate 66 07/22/16 09:23 Respiratory Rate 18 07/22/16 05:00 Blood Pressure 123/66 07/22/16 09:23 O2 Sat by Pulse Oximetry (%) 95 07/21/16 21:00 Constitutional: Yes: Calm Eyes: Yes: Conjunctiva Clear HENT: Yes: Atraumatic Neck: Yes: Supple Cardiovascular: Yes: S1, S2 Respiratory: Yes: CTA Bilaterally Gastrointestinal: Yes: Soft Musculoskeletal: Yes: WNL Edema: No Neurological: Yes: Oriented Psychiatric: Yes: Oriented Labs: CBC, BMP 07/22/16 05:50 07/22/16 05:50 INR, PTT INR 0.97 (0.82-1.09) 07/16/16 10:43 Problem List - Problems (1) CKD (chronic kidney disease) Code(s): N18.9 - CHRONIC KIDNEY DISEASE, UNSPECIFIED (2) Diabetes mellitus Code(s): E11.9 - TYPE 2 DIABETES MELLITUS WITHOUT COMPLICATIONS Qualifiers: Diabetes mellitus type: type 2 Diabetes mellitus complication status: without complication Diabetes mellitus 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 Qualified Code(s): E11.9 - Type 2 diabetes mellitus without complications (3) HTN (hypertension) Code(s): I10 - ESSENTIAL (PRIMARY) HYPERTENSION Qualifiers: Hypertension type: essential hypertension Qualified Code(s): I10 - Essential (primary) hypertension Assessment/Plan Current Medications Generic Name Dose Route Start Last Admin Trade Name Freq PRN Reason Stop Dose Admin Acetaminophen 500 mg 07/17/16 00:50 07/18/16 12:40 Tylenol - PO 500 mg Q6H PRN Administration PAIN Aspirin 81 mg 07/17/16 10:00 07/22/16 09:54 Asa - PO 81 mg DAILY [facility] Administration Bacitracin 1 applic 07/17/16 10:00 07/22/16 09:55 Bacitracin - TP 1 applic DAILY [facility] Administration Calcitriol 0.25 mcg 07/17/16 10:00 07/22/16 09:55 Rocaltrol - PO 0.25 mcg DAILY [facility] Administration Carvedilol 12.5 mg 07/18/16 09:59 07/21/16 22:07 Coreg - PO 12.5 mg BID [facility] Administration Gabapentin 300 mg 07/17/16 10:00 07/22/16 09:54 Neurontin - PO 300 mg BID [facility] Administration Insulin Aspart 0 vial 07/16/16 22:00 07/22/16 12:45 Novolog Vial Sliding Scale - SQ 6 units ACHS [facility] Administration Protocol Insulin Detemir 12 units 07/21/16 16:20 07/22/16 06:33 Levemir Vial SQ 12 units BID@0700,2200 [facility] Administration Latanoprost 1 drop 07/17/16 22:00 07/21/16 22:17 Xalatan 0.005% Eye Drops - OU Not Given HS [facility] Multivitamins/Minerals/Vitamin C 1 tab 07/17/16 10:00 07/22/16 09:55 Tab-A-Vit - PO 1 tab DAILY [facility] Administration Pantoprazole Sodium 40 mg 07/17/16 10:00 07/22/16 09:54 Protonix - PO 40 mg DAILY [facility] Administration Impression 1. CKD 2. HTN 3. hyperlipidemia 4. r/o acs 5. DM Plan - clonidine and norvasc held as pt was hypotensive - cont with coreg and can decrease dose if needed - lasix on hold for now - monitor renal function, he will need outpt follow up - will follow pt while in hospital - cont to monitor orthostatic vitals Dr Mcghee
[2016-07-22] MEDS: CARVEDILOL 12.5 MG TABLET (FP) PO SCH (22:48)
[2016-07-22] MEDS ORDERED: PT OWN MED DRAWER 7, Y5N ONE ×2 (22:54→23:05)
[2016-07-22] MEDS: LATANOPROST 0.005% OPHTH SOLN 2.5ML BOTTLE OU SCH (22:55)
[2016-07-23] MEDS: INSULIN DETEMIR 100 UNITS/ML MDV SQ SCH (06:42)
[2016-07-23] MEDS: INSULIN SLIDING SCALE (NOVOLOG) 1 VIAL SQ SCH ×2 (06:42→12:12)
[2016-07-23 07:32] LABS: BASOPHIL 0.6 % (0-2.0); EOSINOPHIL 5.5 % (0-4.5); MCH 31.7 pg (25.7-33.7); MCHC 33.1 g/dl (32.0-35.9); MEAN CELL VOLUME 95.9 fl (80-96); MEAN PLT VOLUME 10.8 fl (7.5-11.1); NEUTROPHILS 60.2 % (42.8-82.8); PLATELET COUNT 147 K/MM3 (134-434); RDW 13.8 % (11.9-15.9); WHITE BLOOD COUNT 6.4 K/mm3 (4.0-10.0)
[2016-07-23 07:54] LABS: ALBUMIN 3.6 g/dl (3.4-5.0); CALCIUM 8.7 mg/dL (8.5-10.1); COCKROFT - GAULT 33.02; CREATININE 2.9 mg/dL (0.7-1.3)
[2016-07-23 08:03] LABS: BILIRUBIN,TOTAL 0.4 mg/dL (0.2-1.0); TOT PROT 7.1 g/dl (6.4-8.2)
--- NOTE | 2016-07-23 09:24 | PN ---
Progress Note (short form) - Note Progress Note: Subjective: The patient was seen at the bedside, he reports feeling better today. Denies any dizziness F/u orthostatics today Current Medications Generic Name Dose Route Start Last Admin Trade Name Jesse PRN Reason Stop Dose Admin Acetaminophen 500 mg 07/17/16 00:50 07/18/16 12:40 Tylenol - PO 500 mg Q6H PRN Administration PAIN Aspirin 81 mg 07/17/16 10:00 07/22/16 09:54 Asa - PO 81 mg DAILY [facility] Administration Bacitracin 1 applic 07/17/16 10:00 07/22/16 09:55 Bacitracin - TP 1 applic DAILY [facility] Administration Calcitriol 0.25 mcg 07/17/16 10:00 07/22/16 09:55 Rocaltrol - PO 0.25 mcg DAILY [facility] Administration Carvedilol 12.5 mg 07/18/16 09:59 07/22/16 22:48 Coreg - PO Not Given BID [facility] Gabapentin 300 mg 07/17/16 10:00 07/22/16 22:49 Neurontin - PO 300 mg BID [facility] Administration Insulin Aspart 0 vial 07/16/16 22:00 07/23/16 06:42 Novolog Vial Sliding Scale - SQ Not Given ACHS [facility] Protocol Insulin Detemir 12 units 07/21/16 16:20 07/23/16 06:42 Levemir Vial SQ 12 units BID@0700,2200 [facility] Administration Latanoprost 1 drop 07/17/16 22:00 07/22/16 22:55 Xalatan 0.005% Eye Drops - OU 1 drp HS [facility] Administration Multivitamins/Minerals/Vitamin C 1 tab 07/17/16 10:00 07/22/16 09:55 Tab-A-Vit - PO 1 tab DAILY [facility] Administration Pantoprazole Sodium 40 mg 07/17/16 10:00 07/22/16 09:54 Protonix - PO 40 mg DAILY [facility] Administration Objective: Vital Signs Period Temp Pulse Resp BP Sys/Crowell Pulse Ox Last 24 Hr 98.0 F-98.8 F 66-84 18-20 57-153/39-93 98 Physical Exam: General: NAD, A&Ox3 Lungs: CTA bilaterally Heart: RRR, S1S2 Abd: Soft, non-tender, non-distended. Normoactive bowel sounds Ext: Warm, well-perfused. 2+ DP/PT bilaterally Neuro: CN 2-12 intact CBCD WBC 6.4 K/mm3 (4.0-10.0) 07/23/16 05:35 RBC 4.32 M/mm3 (4.00-5.60) 07/23/16 05:35 Hgb 13.7 GM/dL (11.7-16.9) 07/23/16 05:35 Hct 41.4 % (35.4-49) 07/23/16 05:35 MCV 95.9 fl (80-96) 07/23/16 05:35 MCHC 33.1 g/dl (32.0-35.9) 07/23/16 05:35 RDW 13.8 % (11.9-15.9) 07/23/16 05:35 Plt Count 147 K/MM3 (134-434) 07/23/16 05:35 MPV 10.8 fl (7.5-11.1) 07/23/16 05:35 CMP Sodium 138 mmol/L (136-145) 07/23/16 05:35 Potassium 4.3 mmol/L (3.5-5.1) 07/23/16 05:35 Chloride 103 mmol/L (98-107) 07/23/16 05:35 Carbon Dioxide 25 mmol/L (21-32) 07/23/16 05:35 Anion Gap 10 (8-16) 07/23/16 05:35 BUN 52 mg/dL (7-18) H 07/23/16 05:35 Creatinine 2.9 mg/dL (0.7-1.3) H 07/23/16 05:35 Creat Clearance w eGFR 22.31 (>60) 07/23/16 05:35 Random Glucose 217 mg/dL (74-106) H 07/23/16 05:35 Calcium 8.7 mg/dL (8.5-10.1) 07/23/16 05:35 Total Bilirubin 0.4 mg/dL (0.2-1.0) D 07/23/16 05:35 AST 17 U/L (15-37) 07/23/16 05:35 ALT 25 U/L (12-78) D 07/23/16 05:35 Alkaline Phosphatase 81 U/L (45-117) 07/23/16 05:35 Total Protein 7.1 g/dl (6.4-8.2) 07/23/16 05:35 Albumin 3.6 g/dl (3.4-5.0) 07/23/16 05:35 CARDIAC ENZYMES Creatine Kinase 156 IU/L (39-308) 07/17/16 06:07 Troponin I 0.13 ng/ml (0.00-0.05) H D 07/17/16 06:07 Assessment: This is a 60 year old male with PMHx of IDDM, HTN, CKD (RTA4), cervical spinal stenosis, neuropathy, R- Foot Drop, atrophy, depression who presented to the ED after being found unresponsive with a BGM of 30 (responded to D10). Plan: 1) Cardiology: Chest pain - Trops elevated, however trended down. Per cardiology, not indicative of ACS clinically. No EKG acute changes - ECHO reviewed - Persantine stress overall negative. EF 67% Diastolic LV dysfunction - Hold Coreg, Lasix, Norvasc, Clonidine 2/2 significant orthostatic hypotension - Continue ASA - Appreciate cardiology consult HTN - As above 2) : CKD - Baseline Cr 2.5-2.6 - Cr remains elevated however trending down to 2.9 - Renal ultrasound consistent with CKD - Continue to monitor - Appreciate nephrology consult 3) Endocrine: IDDM - BGM ACHS - ISS ACHS - Continue Levemir 12u sq bid 4) F/E/N: - Monitor electrolytes - Sodium controlled diet 5) Prophylaxis: - OOB ambulating - Heparin 5,000u sq bid 6) Dispo: - If orthostatics improve today, will possibly discharge CODE STATUS: FULL CODE Visit type - Emergency Visit Emergency Visit: Yes ED Registration Date: 07/16/16 Care time: The patient presented to the Emergency Department on the above date and was hospitalized for further evaluation of their emergent condition. - New Patient This patient is new to me today: No - Critical Care Critical Care patient: No
--- NOTE | 2016-07-23 09:42 | PN ---
Progress Note, Physician History of Present Illness: No further dizziness, syncope or chest pain, reports peripheral neuropathy on Neurontin. - Current Medication List Current Medications: Active Medications Acetaminophen (Tylenol -) 500 mg PO Q6H PRN PRN Reason: PAIN Last Admin: 07/18/16 12:40 Dose: 500 mg Aspirin (Asa -) 81 mg PO DAILY [facility] Last Admin: 07/22/16 09:54 Dose: 81 mg Bacitracin (Bacitracin -) 1 applic TP DAILY [facility] Last Admin: 07/22/16 09:55 Dose: 1 applic Calcitriol (Rocaltrol -) 0.25 mcg PO DAILY [facility] Last Admin: 07/22/16 09:55 Dose: 0.25 mcg Carvedilol (Coreg -) 12.5 mg PO BID [facility] Last Admin: 07/22/16 22:48 Dose: Not Given Gabapentin (Neurontin -) 300 mg PO BID [facility] Last Admin: 07/22/16 22:49 Dose: 300 mg Insulin Aspart (Novolog Vial Sliding Scale -) 0 vial SQ ACHS [facility] PRN Reason: Protocol Last Admin: 07/23/16 06:42 Dose: Not Given Insulin Detemir (Levemir Vial) 12 units SQ BID@0700,2200 [facility] Last Admin: 07/23/16 06:42 Dose: 12 units Latanoprost (Xalatan 0.005% Eye Drops -) 1 drop OU HS [facility] Last Admin: 07/22/16 22:55 Dose: 1 drp Multivitamins/Minerals/Vitamin C (Tab-A-Vit -) 1 tab PO DAILY [facility] Last Admin: 07/22/16 09:55 Dose: 1 tab Pantoprazole Sodium (Protonix -) 40 mg PO DAILY [facility] Last Admin: 07/22/16 09:54 Dose: 40 mg - Objective Vital Signs: Vital Signs Temperature 98.2 F 07/23/16 01:00 Pulse Rate 68 07/23/16 05:00 Respiratory Rate 20 07/23/16 05:00 Blood Pressure 119/60 07/23/16 05:00 O2 Sat by Pulse Oximetry (%) 98 07/22/16 21:00 Constitutional: Yes: No Distress, Calm Neck: Yes: Supple Cardiovascular: Yes: Regular Rate and Rhythm Respiratory: Yes: Regular, CTA Bilaterally Gastrointestinal: Yes: Normal Bowel Sounds, Soft Edema: No Labs: CBC, BMP 07/23/16 05:35 07/23/16 05:35 INR, PTT INR 0.97 (0.82-1.09) 07/16/16 10:43 Problem List - Problems (1) CKD (chronic kidney disease) Code(s): N18.9 - CHRONIC KIDNEY DISEASE, UNSPECIFIED Qualifiers: Chronic kidney disease stage: stage 3 (moderate) Qualified Code(s): N18.3 - Chronic kidney disease, stage 3 (moderate) (2) Chest pain Code(s): R07.9 - CHEST PAIN, UNSPECIFIED Qualifiers: Chest pain type: unspecified Qualified Code(s): R07.9 - Chest pain, unspecified (3) Diabetes mellitus Code(s): E11.9 - TYPE 2 DIABETES MELLITUS WITHOUT COMPLICATIONS Qualifiers: Diabetes mellitus type: type 2 Diabetes mellitus complication status: without complication Diabetes mellitus 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: without mcc use Qualified Code(s): E11.9 - Type 2 diabetes mellitus without complications (4) HTN (hypertension) Code(s): I10 - ESSENTIAL (PRIMARY) HYPERTENSION Qualifiers: Hypertension type: essential hypertension Qualified Code(s): I10 - Essential (primary) hypertension (5) Neuropathy due to type 2 diabetes mellitus Code(s): E11.40 - TYPE 2 DIABETES MELLITUS WITH DIABETIC NEUROPATHY, UNSP (6) Orthostatic hypotension Code(s): I95.1 - ORTHOSTATIC HYPOTENSION (7) Diastolic dysfunction Code(s): I51.9 - HEART DISEASE, UNSPECIFIED Assessment/Plan Echocardiography revealed normal LV size and function, with mild TR MPI study revealed inferior attenuation with normal LV function, LV EF of 67% 1. Chest pain syndrome, CAD angina pectoris 2. Orthostatic hypotension since resolved 3. Diastolic LV dysfunction with class 0-I NYHA classification LV failure 4. HTN 5. IDDM 6. Hypercholesterolemia 7. Cervical Spinal Stenosis 8. CKD 9. Diabetic neuropathy PLAN: 1. Resume carvedilol 6.25 bid 2. JAZMYN-I/ARB once renal fxn stable 3. Discontinued Cymbalta as it may cause orthostasis 4. Continue ASA 81 qd 5. Discharge planning today
[2016-07-23] MEDS: ASPIRIN 81 MG CHEWABLE TABLETS PO SCH (09:46)
[2016-07-23] MEDS: GABAPENTIN 300 MG CAPSULE (FP) PO SCH (09:46)
[2016-07-23] MEDS: PANTOPRAZOLE 40 MG TABLET (FP) PO SCH (09:46)
[2016-07-23] MEDS: MULTIVITAMINS (DAILY MVI) TABLET (FP) PO SCH (09:46)
[2016-07-23] MEDS: CALCITRIOL 0.25 MCG CAPSULE (FP) PO SCH (09:47)
[2016-07-23] MEDS: BACITRACIN 30 GM TUBE TOPICAL OINTMENT TP SCH (09:47)
[2016-07-23 10:00] VITALS: BP 160/92; PULSE 71
--- NOTE | 2016-07-23 10:41 | DS ---
[id number] Rate 20 07/23/16 05:00 Blood Pressure 160/92 07/23/16 08:12 O2 Sat by Pulse Oximetry (%) 98 07/22/16 21:00 Findings/Remarks: Physical Exam: General: NAD, A&Ox3 Lungs: CTA bilaterally Heart: RRR, S1S2 Abd: Soft, non-tender, non-distended. Normoactive bowel sounds Ext: Warm, well-perfused. 2+ DP/PT bilaterally Neuro: CN 2-12 intact Labs: CBC, BMP 07/23/16 05:35 07/23/16 05:35 Discharge Summary Reason For Visit: DIABETES MELLITUS/CHEST PAIN Current Active Problems CKD (chronic kidney disease) (Acute) Cervical spinal stenosis (Acute) Chest pain (Acute) DVT prophylaxis (Acute) Depression (Acute) Diabetes mellitus (Acute) Diastolic dysfunction (Acute) HTN (hypertension) (Acute) Hypoglycemia (Acute) Neuropathy due to type 2 diabetes mellitus (Acute) Orthostatic hypotension (Acute) Hospital Course: This is a 60 year old male with PMHx of IDDM, HTN, CKD (RTA4), cervical spinal stenosis, neuropathy, R- Foot Drop, atrophy, depression who presented to the ED after being found unresponsive with a BGM of 30 (responded to D10). Plan: 1) Cardiology: Chest pain - Trops elevated, however trended down. Per cardiology, not indicative of ACS clinically. No EKG acute changes - ECHO reviewed - Persantine stress overall negative. EF 67% Diastolic LV dysfunction - Resume Carvedilol 6.25mg bid - Continue ASA - Appreciate cardiology consult HTN - As above 2) : CKD - Baseline Cr 2.5-2.6 - Cr remains elevated however trending down to 2.9 - Renal ultrasound consistent with CKD - Continue to monitor - Appreciate nephrology consult 3) Endocrine: IDDM - BGM ACHS - ISS ACHS - Continue Levemir 12u sq bid Condition: Improved - Instructions Diet, Activity, Other Instructions: Please return to the ED with new, persistent, or worsening symptoms. Please follow-up with providers as indicated. Please have your orthostatic vital signs checked daily. Referrals: Essence Del Rio MD [Primary Care Provider] - 1 Week Alexx Nunes MD [Staff Physician] - 1 Week Jose Mcghee MD [Staff Physician] - (Please follow-up with nephrology within 1 week to have your kidney function re-checked. ) Disposition: LONG-TERM FACILITY - Home Medications Comprehensive Discharge Medication List: Ambulatory Orders Calcitriol [Calcitriol -] 0.25 mcg PO DAILY 03/02/16 Gabapentin [Neurontin] 300 mg PO BID 03/02/16 Hypromellose 0.5% Opth Soln [Artificial Tears] 1 drop OU PRN PRN 03/02/16 Latanoprost 0.005% Eye Drops [Xalatan 0.005% Eye Drops -] 1 drop OU HS 03/02/16 Multivitamins [Multivit ([facility] Formulary)] 1 tab PO DAILY 03/02/16 Pantoprazole Sodium [Protonix] 40 mg PO DAILY 03/02/16 Acetaminophen [Tylenol Extra Strength] 500 mg PO PRN PRN #0 03/03/16 Ammonium Lactate Cream [Lac-Hydrin 12% Cream -] 0.01 unit TP DAILY 07/16/16 Bacitracin - [Bacitracin Topical Ointment -] 1 applic TP DAILY 07/16/16 Hydrocodone/Acetaminophen [Hydrocodon-Acetaminoph 7.5-325] 0 each PO Q6H MDD 4 07/16/16 Lactulose [Cephulac -] 30 ml PO DAILY 07/16/16 Linagliptin [Tradjenta] 5 mg PO DAILY 07/16/16 Sodium Polystyrene Sulfonate 15 gm PO DAILY 07/16/16 Synalar Ts 0.01% Kit 0.01 drop TP DAILY 07/16/16 Aspirin [ASA -] 81 mg PO DAILY #30 tab.chew 07/23/16 Carvedilol [Coreg -] 6.25 mg PO BID #60 tablet 07/23/16 Insulin (Levemir) [Levemir Vial] 12 units SQ BID@0700,2200 #1 ml 07/23/16 This patient is new to me today: No Emergency Visit: Yes ED Registration Date: 07/16/16 Care time: The patient presented to the Emergency Department on the above date and was hospitalized for further evaluation of their emergent condition. Critical Care patient: No - Discharge Referral Referred to [facility] No
[2016-07-23 12:23] VITALS: TEMP 97.8
[2016-07-23] MEDS ORDERED: CARVEDILOL 6.25 MG TABLET (FP) PO SCH (12:30)
== END 2016-07-23 13:17 | DRG 312 ==
LOC: JER 10:29 → JERBED 21:14 → J4W 22:55
PROVIDERS: ADMIT Internal Medicine; ATTEND Registered Nurse
DX: I95.1 Orthostatic hypotension (principal); N17.8 Other acute kidney failure; E11.649 Type 2 diabetes mellitus with hypoglycemia without coma; I12.9 Hypertensive chronic kidney disease with stage 1 through stage 4 chronic kidney disease, or unspecified chronic kidney disease; E11.22 Type 2 diabetes mellitus with diabetic chronic kidney disease; N18.9 Chronic kidney disease, unspecified; I25.118 Atherosclerotic heart disease of native coronary artery with other forms of angina pectoris; M48.02 Spinal stenosis, cervical region; E11.40 Type 2 diabetes mellitus with diabetic neuropathy, unspecified; M21.371 Foot drop, right foot; F32.9 Major depressive disorder, single episode, unspecified; E78.00 Pure hypercholesterolemia, unspecified; Z87.891 Personal history of nicotine dependence; Z79.4 Long term (current) use of insulin
CPT/HCPCS: 36415; 71010-TC; 76775-TC; 76856-TC; 78452-TC; 80048; 80053; 80061; 81003; 82140; 82550; 82553; 83036; 83721; 83735; 84100; 84484; 85025; 85610; 85730; 93005; 93010; 93017; 93306-TC; 99285-25; A9502; J1245; J1644

== ENCOUNTER 2017-04-06 10:13 | Emergency (ER) | payer OTHER ==
[2017-04-06 10:28] VITALS: BMI 27.3
--- NOTE | 2017-04-06 10:52 | PDOC ---
History of Present Illness - General History Source: Patient Exam Limitations: No Limitations - History of Present Illness Initial Comments: 04/06/17 11:30 The patient is a 61 year old male with a significant PMH of insulin-dependent diabetes (w/associated neuropathy), HTN, cervical spinal stenosis, CKD, and depression who presents to the emergency department from [facility] for evaluation of elevated blood glucose and subjective fever. The patient reports that his nurse checked his blood glucose level this morning and noted it was over 460 mg/dL. The patient denies taking his insulin this morning prior to his nurse checking his sugar. He reports that the nurse administered insulin before calling EMS. The patient also notes intermittent cough and subjective fevers and chills beginning approximately 3 days ago. He notes recently being at [facility] ED for evaluation of bronchitis. The patient reports getting his flu shot this year. The patient denies chest pain, shortness of breath, headache and dizziness. Denies nausea, vomit, diarrhea and constipation. Denies dysuria, frequency, urgency and hematuria. Allergies: NKA Past surgical history: None reported. Social history: Former alcohol use. No reported cigarette or drug use. PCP: Dr. Del Rio <Oscar Mercado - Last Filed: 04/06/17 12:41> <Farhat Carballo - Last Filed: 04/06/17 16:33> - General Chief Complaint: Pain Stated Complaint: NAUSEA Time Seen by Provider: 04/06/17 10:50 Past History <Oscar Mercado - Last Filed: 04/06/17 12:41> - Past Medical History Cardiac Disorders: Yes (CAD) COPD: No Diabetes: Yes HTN: Yes - Suicide/Smoking/Psychosocial Hx Smoking History: Never smoked Have you smoked in the past 12 months: No Information on smoking cessation initiated: No Hx Alcohol Use: No (past) Drug/Substance Use Hx: No Substance Use Type: Alcohol Hx Substance Use Treatment: No <Farhat Carballo - Last Filed: 04/06/17 16:33> - Past Medical History Allergies/Adverse Reactions: Allergies Allergy/AdvReac Type Severity Reaction Status Date / Time No Known Drug Allergies Allergy Verified 03/03/16 09:26 Home Medications: Ambulatory Orders Calcitriol [Calcitriol -] 0.25 mcg PO DAILY 03/02/16 Gabapentin [Neurontin] 300 mg PO BID 03/02/16 Hypromellose 0.5% Opth Soln [Artificial Tears] 1 drop OU PRN PRN 03/02/16 Latanoprost 0.005% Eye Drops [Xalatan 0.005% Eye Drops -] 1 drop OU HS 03/02/16 Multivitamins [Multivit ([facility] Formulary)] 1 tab PO DAILY 03/02/16 Pantoprazole Sodium [Protonix] 40 mg PO DAILY 03/02/16 Ammonium Lactate Cream [Lac-Hydrin 12% Cream -] 0.01 unit TP DAILY 07/16/16 Sodium Polystyrene Sulfonate 15 gm PO DAILY 07/16/16 Aspirin [ASA -] 81 mg PO DAILY #30 tab.chew 07/23/16 Carvedilol [Coreg -] 6.25 mg PO BID #60 tablet 07/23/16 Fluoxetine HCl 3 tab PO DAILY 04/06/17 Insulin (Levemir) [Levemir Vial] 18 units SQ BID 04/06/17 Insulin Sliding Scale [Novolog Vial Sliding Scale -] 0 units SQ TIDAC 04/06/17 Review of Systems - Review of Systems Able to Perform ROS?: Yes Comments:: 04/06/17 11:30 GENERAL/CONSTITUTIONAL: (+) Subjective fever. (+) Chills. No weakness. HEAD, EYES, EARS, NOSE AND THROAT: No change in vision. No ear pain or discharge. No sore throat. CARDIOVASCULAR: No chest pain or shortness of breath. RESPIRATORY: No cough, wheezing, or hemoptysis. GASTROINTESTINAL: No nausea, vomiting, diarrhea or constipation. GENITOURINARY: No dysuria, frequency, or change in urination. MUSCULOSKELETAL: No joint or muscle swelling or pain. No neck or back pain. SKIN: No rash NEUROLOGIC: No headache, vertigo, loss of consciousness, or change in strength/ sensation. ENDOCRINE: No increased thirst. No abnormal weight change. HEMATOLOGIC/LYMPHATIC: No anemia, easy bleeding, or history of blood clots. ALLERGIC/IMMUNOLOGIC: No hives or skin allergy. <Oscar Mercado - Last Filed: 04/06/17 12:41> *Physical Exam - Vital Signs Last Vital Signs Temp Pulse Resp BP Pulse Ox 98.3 F 71 20 150/86 98 04/06/17 10:26 04/06/17 10:26 04/06/17 10:26 04/06/17 10:26 04/06/17 10:26 - Physical Exam Comments: 04/06/17 11:30 GENERAL: Awake, alert, and fully oriented, in no acute distress HEAD: No signs of trauma EYES: PERRLA, EOMI, sclera anicteric, conjunctiva clear ENT: Auricles normal inspection, hearing grossly normal, nares patent, oropharynx clear without exudates. Moist mucosa NECK: Normal ROM, supple, no lymphadenopathy, JVD, or masses LUNGS: Breath sounds equal, clear to auscultation bilaterally. No wheezes, and no crackles HEART: Regular rate and rhythm, normal S1 and S2, no murmurs, rubs or gallops ABDOMEN: Soft, nontender, normoactive bowel sounds. No guarding, no rebound. No masses EXTREMITIES: Normal range of motion, no edema. No clubbing or cyanosis. No cords, erythema, or tenderness NEUROLOGICAL: Cranial nerves II through XII grossly intact. Normal speech, normal gait SKIN: Warm, Dry, normal turgor, no rashes or lesions noted. <Oscar Mercado - Last Filed: 04/06/17 12:41> - Vital Signs Last Vital Signs Temp Pulse Resp BP Pulse Ox 98.3 F 71 20 150/86 98 04/06/17 10:26 04/06/17 10:26 04/06/17 10:26 04/06/17 10:26 04/06/17 10:26 <Farhat Carballo - Last Filed: 04/06/17 16:33> Heart Score/ECG Review #1 04/06/17 12:41 Vent rate 68 bpm Poor data quality, interpretation may be adversely affected Sinus rhythm with premature atrial complexes Nonspecific ST & T wave abnormality Abnormal ECG <Oscar Mercado - Last Filed: 04/06/17 12:41> ED Treatment Course - LABORATORY CBC & Chemistry Diagram: 04/06/17 11:15 04/06/17 11:15 - ADDITIONAL ORDERS Additional order review: 04/06/17 11:15 RBC 4.13 MCV 96.5 H MCHC 32.5 RDW 13.5 MPV 9.9 Neutrophils % 80.4 D Lymphocytes % 9.9 D Monocytes % 9.6 Eosinophils % 0.0 D Basophils % 0.1 <Oscar Mercado - Last Filed: 04/06/17 12:41> - LABORATORY CBC & Chemistry Diagram: 04/06/17 11:15 04/06/17 11:15 <Farhat Carballo - Last Filed: 04/06/17 16:33> *DC/Admit/Observation/Transfer - Attestations Scribe Attestion: 04/06/17 11:31 Documentation prepared by Oscar Mercado, acting as medical clinic manager for Farhat Carballo DO. <Oscar Mercado - Last Filed: 04/06/17 12:41> - Discharge Dispostion Admit: No - Attestations Physician Attestion: 04/06/17 10:51 I, Dr. Farhat Carballo, attest that this document has been prepared under my direction and personally reviewed by me in its entirety. I further attest, that it accurately reflects all work, treatment, procedures and medical decision -making performed by me. <Farhat Carballo - Last Filed: 04/06/17 16:33> Diagnosis at time of Disposition: Labile blood glucose - Discharge Dispostion Disposition: HOME Condition at time of disposition: Improved - Referrals Referrals: Essence Del Rio MD [Primary Care Provider] - - Patient Instructions Additional Instructions: Return to us if any problems at all. All medications as before. - Post Discharge Activity
[2017-04-06 11:27] LABS: BASO % 0.1 % (0-2.0); HEMATOCRIT 39.9 % (35.4-49); HEMOGLOBIN 12.9 GM/dL (11.7-16.9); LYMPH % 9.9 % (8-40); MCH 31.3 pg (25.7-33.7); MCHC 32.5 g/dl (32.0-35.9); MEAN CELL VOLUME 96.5 fl (80-96); MEAN PLT VOLUME 9.9 fl (7.5-11.1); MONO % 9.6 % (3.8-10.2); NEUT % 80.4 % (42.8-82.8); PLATELET COUNT 159 K/MM3 (134-434); RBC 4.13 M/mm3 (4.00-5.60); RDW 13.5 % (11.9-15.9); WHITE BLOOD COUNT 12.9 K/mm3 (4.0-10.0)
[2017-04-06] MEDS ORDERED: methylPREDNISolone NA SUCC 125 MG/2 ML VIAL IM ONE (11:27)
[2017-04-06] MEDS ORDERED: SODIUM CHLORIDE 1,000 ML IV STA ×2 (11:34→12:55)
[2017-04-06 11:40] LABS: INR 1.04 (0.82-1.09); PROTHROMBIN TIME (PATIENT) 11.7 SEC (9.98-11.88)
[2017-04-06 12:21] LABS: ALBUMIN 3.6 g/dl (3.4-5.0); ALK PHOS 78 U/L (45-117); ANION GAP 9 (8-16); BILIRUBIN,TOTAL 0.7 mg/dL (0.2-1.0); BLOOD UREA NITROGEN 37 mg/dL (7-18); CALCIUM 8.6 mg/dL (8.5-10.1); CHLORIDE 98 mmol/L (98-107); CO2 26 mmol/L (21-32); CREATININE 2.8 mg/dL (0.7-1.3); POTASSIUM 4.5 mmol/L (3.5-5.1); SGOT/AST 19 U/L (15-37); SGPT/ALT 20 U/L (12-78); SODIUM 133 mmol/L (136-145); TOT PROT 7.1 g/dl (6.4-8.2)
[2017-04-06 12:50] LABS: GLUCOSE,RANDOM 443 mg/dL (74-106)
[2017-04-06] MEDS ORDERED: INSULIN REGULAR HUMAN 100 UNITS/ML *VIAL ONE (12:57)
[2017-04-06] MEDS ORDERED: INSULIN REGULAR HUMAN 100 UNITS/ML *VIAL IVPUSH ONE (13:00)
[2017-04-06 13:59] LABS: ACETONE SERUM NEGATIVE (NEGATIVE)
[2017-04-06 18:27] VITALS: BP 128/86; PULSE 72; TEMP 98.4
--- NOTE | 2017-04-16 11:23 | EKG ---
Test Reason : Blood Pressure : / mmHG Vent. Rate : 068 BPM Atrial Rate : 068 BPM P-R Int : 150 ms QRS Dur : 082 ms QT Int : 432 ms P-R-T Axes : 034 022 071 degrees QTc Int : 459 ms SINUS RHYTHM WITH PREMATURE ATRIAL COMPLEXES NONSPECIFIC ST AND T WAVE ABNORMALITY ABNORMAL ECG WHEN COMPARED WITH ECG OF 19-JUL-2016 10:02, PREMATURE ATRIAL COMPLEXES ARE NOW PRESENT BASELINE ARTIFACT Confirmed by HESHAM ALVARENGA, ANGELIKA ([id number]) on 04/16/2017 11:23:36 AM Referred By: Confirmed By:ANGELIKA DAHL MD
== END 2017-04-06 18:28 | disposition home or self-care (01) ==
LOC: JER 10:13
PROC: 3E033VG Introduction of Insulin into Peripheral Vein, Percutaneous Approach (ICD-10-PCS; principal; 2017-04-06)
PROC: 3E0337Z Introduction of Electrolytic and Water Balance Substance into Peripheral Vein, Percutaneous Approach (ICD-10-PCS; 2017-04-06)
DX: E74.39 Other disorders of intestinal carbohydrate absorption (principal); N18.9 Chronic kidney disease, unspecified; I12.9 Hypertensive chronic kidney disease with stage 1 through stage 4 chronic kidney disease, or unspecified chronic kidney disease; Z79.4 Long term (current) use of insulin
CPT/HCPCS: 36415; 71010-TC; 80053; 82009; 83605; 85025; 85610; 87040; 93005; 93010; 99283-25

== ENCOUNTER 2018-01-14 19:00 | Emergency (ER) | payer OTHER ==
[2018-01-14] MEDS ORDERED: DEXTROSE 50%-WATER 25 GM/50 ML DISP.SYRIN ONE ×2 (19:06→20:15)
--- NOTE | 2018-01-14 19:15 | PDOC ---
History of Present Illness - General Chief Complaint: Blood Sugar Problem Stated Complaint: HYPOGLYCEMIA Time Seen by Provider: 01/14/18 19:06 History Source: Patient Exam Limitations: No Limitations - History of Present Illness Initial Comments: 01/14/18 19:30 62M from [facility] and Assisted with pmh of DM2 on Levemir and Novolog , HTN on coreg presents to the ED BIBA after found slumped on the floor by facility bench. Fingerstick was found to be in the 30's. Patient revealed to have been given his dose of insulin before receiving his dinner sandwich. He hadn't eating anything since breakfast. 01/14/18 19:45 Received push of D50 immediately on arrival. 01/14/18 20:01 Past History - Past Medical History Allergies/Adverse Reactions: Allergies Allergy/AdvReac Type Severity Reaction Status Date / Time No Known Drug Allergies Allergy Verified 12/03/17 01:07 Home Medications: Ambulatory Orders Calcitriol [Calcitriol -] 0.25 mcg PO DAILY 03/02/16 Gabapentin [Neurontin] 300 mg PO BID 03/02/16 Hypromellose 0.5% Opth Soln [Artificial Tears] 1 drop OU PRN PRN 03/02/16 Latanoprost 0.005% Eye Drops [Xalatan 0.005% Eye Drops -] 1 drop OU HS 03/02/16 Multivitamins [Multivit ([facility] Formulary)] 1 tab PO DAILY 03/02/16 Pantoprazole Sodium [Protonix] 40 mg PO DAILY 03/02/16 Ammonium Lactate Cream [Lac-Hydrin 12% Cream -] 0.01 unit TP DAILY 07/16/16 Sodium Polystyrene Sulfonate 15 gm PO DAILY 07/16/16 Aspirin [ASA -] 81 mg PO DAILY #30 tab.chew 07/23/16 Carvedilol [Coreg -] 6.25 mg PO BID #60 tablet 07/23/16 Fluoxetine HCl 3 tab PO DAILY 04/06/17 Insulin (Levemir) [Levemir Vial] 18 units SQ BID 04/06/17 Insulin Sliding Scale [Novolog Vial Sliding Scale -] 0 units SQ TIDAC 04/06/17 Cardiac Disorders: Yes (CAD) COPD: No Diabetes: Yes HTN: Yes Psychiatric Problems: Yes (depression) - Suicide/Smoking/Psychosocial Hx Smoking History: Former smoker Have you smoked in the past 12 months: No Hx Alcohol Use: Yes Drug/Substance Use Hx: No Substance Use Type: Alcohol Hx Substance Use Treatment: No Review of Systems - Review of Systems Able to Perform ROS?: Yes Is the patient limited Greenlandic proficient: No Constitutional: No: Symptoms Reported HEENTM: No: Symptoms Reported Respiratory: No: Symptoms reported Cardiac (ROS): No: Symptoms Reported : No: Symptoms Reported Musculoskeletal: No: Symptoms Reported Integumentary: No: Symptoms Reported *Physical Exam - Physical Exam General Appearance: Yes: Nourished, Appropriately Dressed. No: Apparent Distress HEENT: positive: EOMI, JUANITO, Normal ENT Inspection Respiratory/Chest: positive: Lungs Clear, Normal Breath Sounds, Other (right rib pain, no signs of trauma). negative: Chest Tender Cardiovascular: positive: Regular Rhythm, Regular Rate, S1, S2 Gastrointestinal/Abdominal: positive: Normal Bowel Sounds, Tender (mildly), Flat , Soft Musculoskeletal: positive: Normal Inspection. negative: CVA Tenderness Extremity: positive: Normal Capillary Refill, Normal Inspection, Normal Range of Motion Integumentary: positive: Normal Color, Dry, Warm Neurologic: positive: Fully Oriented, Alert, Depressed Affect ED Treatment Course - LABORATORY CBC & Chemistry Diagram: 01/14/18 20:20 01/14/18 20:20 Medical Decision Making - Medical Decision Making 01/14/18 20:01 - food - Imaging - Repeat fingerstick - Dispo 01/14/18 20:24 EKG: Normal sinus rhythm with sinus arrhythmia, normal EKG 01/14/18 22:35 Patient feeling much better. received another amp of d50 and 1L ns. ok to dc *DC/Admit/Observation/Transfer Diagnosis at time of Disposition: Hypoglycemia - Discharge Dispostion Disposition: HOME Condition at time of disposition: Improved Decision to Admit order: No - Referrals Referrals: Ty Myers MD [Primary Care Provider] - - Patient Instructions Printed Discharge Instructions: DI for Hyperglycemia -- Adult Additional Instructions: Come back to the ED for any new, worsening or concerning symptom. - Post Discharge Activity
[2018-01-14 19:20] VITALS: TEMP 97.8; BMI 31.7
[2018-01-14] MEDS ORDERED: CARVEDILOL 12.5 MG TABLET (FP) PO ONE (19:22)
--- NOTE | 2018-01-14 19:51 | PDOC ---
Attending Attestation - HPI HPI: 01/14/18 19:53 The patient is a 62 year old male , from [facility],with a significant PMH of diabetes who presents to the emergency department with low blood sugar prior to arrival to the ED. The patient reports that he was given his insulin shot tonight and his blood sugar decreased prompting him to come into the ED. the patient reports that he had not eaten since breakfast. The patient reports some right rib pain. He denies any other symptoms. He denies any fever, chills, nausea, vomiting, diarrhea, constipation or urinary symptoms. He denies any chest pain, shortness of breath, headache, or dizziness. The patient denies any other complaints. - Physicial Exam PE: 01/14/18 19:55 GENERAL: Awake, alert, and fully oriented (X3), in no acute distress HEAD: No signs of trauma EYES: PERRLA, EOMI, sclera anicteric, conjunctiva clear ENT: Auricles normal inspection, hearing grossly normal, nares patent, oropharynx clear without exudates. Moist mucosa NECK: Normal ROM, supple, no lymphadenopathy, JVD, or masses LUNGS: Breath sounds equal, clear to auscultation bilaterally. No wheezes, and no crackles HEART: Regular rate and rhythm, normal S1 and S2, no murmurs, rubs or gallops ABDOMEN: (+)diffuse abdominal tenderness , pain is distractible. Normally obese abdomen that felt full. Soft, normoactive bowel sounds. Right rib pain over T9- T12. No guarding, no rebound. No masses EXTREMITIES: Normal range of motion, no edema. No clubbing or cyanosis. No cords, erythema, or tenderness. No pronator drift NEUROLOGICAL: Cranial nerves II through XII grossly intact. Normal speech, normal gait SKIN: Warm, Dry, normal turgor, no rashes or lesions noted. Documentation prepared by Ahsan Powell, acting as medical receptionist for Trang Butts MD. <Ahsan Powell - Last Filed: 01/14/18 19:53> - Resident Resident Name: Tony Bowser - ED Attending Attestation I have performed the following: I have examined & evaluated the patient, The case was reviewed & discussed with the resident, I agree w/resident's findings & plan - HPI HPI: 01/14/18 19:47 Pt comes with hypoglycemia after receiving his insulin, despite not eating his usual sandwich for lunch. Blood glc plummeted, while he and 2 friends were sitting on a bench outside. He slid off the bench, didn't strike his head or neck. He has minimal complaint of right rib pain. Pt has also slight abd tenderness with abd palpation. He seems to be constipated. - Physicial Exam PE: 01/14/18 19:49 AGree with resident exam. Pt is alert and oriented and his strength is intact. He is answering questions and following commands. He has no weakness. He has normal finger to nose and romberg. Reflexes intact - Medical Decision Making 01/14/18 19:50 XR chest; XR abd; feed pt a tray. Pt received D50 in the ER. Stable at this time; stable vitals (155/80)and exam. 01/14/18 22:02 NSS IV going in 01/14/18 22:25 Pt received 1 D50 in the ER after which his blood sugar went back to the 50s. Pt received 2nd d50 and he is maintaining his bld glc ay 150. He also ate a tray of food. We are observing and hydrating, as his BUN and Cr are elevated and he will be reassessed before we decide whether to send him home. 01/14/18 22:26 Pt is stable. 01/14/18 22:38 If repeat blood sugar is normal, pt will go home. <Trang Butts - Last Filed: 01/14/18 22:39>
[2018-01-14] MEDS ORDERED: DEXTROSE 50%-WATER - 25 GM/50 ML VIAL IVPUSH ONE ×2 (20:18→20:57)
[2018-01-14] MEDS ORDERED: CARVEDILOL 12.5 MG TABLET (FP) ONE (20:25)
[2018-01-14 20:27] VITALS: BP 156/76; PULSE 63
[2018-01-14 20:28] LABS: BASO % 0.3 % (0-2.0); EOS % 1.5 % (0-4.5); HEMATOCRIT 41.4 % (35.4-49); LYMPH % 17.3 % (8-40); MCHC 33.8 g/dl (32.0-35.9); MEAN CELL VOLUME 94.7 fl (80-96); MEAN PLT VOLUME 9.1 fl (7.5-11.1); MONO % 9.9 % (3.8-10.2); PLATELET COUNT 188 K/MM3 (134-434); RBC 4.37 M/mm3 (4.00-5.60); RDW 13.5 % (11.9-15.9); WHITE BLOOD COUNT 6.7 K/mm3 (4.0-10.0)
[2018-01-14 20:57] LABS: ALK PHOS 101 U/L (45-117); ANION GAP 12 MMOL/L (8-16); BILIRUBIN,TOTAL 0.5 mg/dL (0.2-1); BLOOD UREA NITROGEN 25 mg/dL (7-18); CALCIUM 9.3 mg/dL (8.5-10.1); CHLORIDE 100 mmol/L (98-107); CO2 25 mmol/L (21-32); CREATININE 2.2 mg/dL (0.55-1.3); SGOT/AST 24 U/L (15-37); SGPT/ALT 25 U/L (13-61); SODIUM 138 mmol/L (136-145)
[2018-01-14 20:58] LABS: GLUCOSE,RANDOM 38 mg/dL (74-106)
[2018-01-14] MEDS ORDERED: SODIUM CHLORIDE 0.9% 500 ML INFUS.BAG IV ONE (21:30)
--- NOTE | 2018-01-16 06:05 | EKG ---
Test Reason : Blood Pressure : / mmHG Vent. Rate : 061 BPM Atrial Rate : 061 BPM P-R Int : 158 ms QRS Dur : 094 ms QT Int : 470 ms P-R-T Axes : 039 030 084 degrees QTc Int : 473 ms NORMAL SINUS RHYTHM WITH SINUS ARRHYTHMIA NORMAL ECG WHEN COMPARED WITH ECG OF 03-DEC-2017 02:12, PREMATURE ATRIAL COMPLEXES ARE NO LONGER PRESENT Confirmed by KARINA ROBERTS MD ([id number]) on 01/16/2018 6:05:19 AM Referred By: Confirmed By:KARINA ROBERTS MD
== END 2018-01-15 00:33 | disposition home or self-care (01) ==
LOC: JER 19:00
PROC: 3E0337Z Introduction of Electrolytic and Water Balance Substance into Peripheral Vein, Percutaneous Approach (ICD-10-PCS; principal; 2018-01-14)
DX: E11.649 Type 2 diabetes mellitus with hypoglycemia without coma (principal); Z79.4 Long term (current) use of insulin; I10 Essential (primary) hypertension; F32.9 Major depressive disorder, single episode, unspecified
CPT/HCPCS: 36415; 71046-TC-FY; 74018-TC-FY; 80053; 82962; 85025; 93005; 93010; 96374; 96376; 99281-25

== ENCOUNTER 2018-04-26 11:52 | Emergency (ER) | payer OTHER ==
[2018-04-26 12:18] VITALS: TEMP 98.2; BMI 31.6
--- NOTE | 2018-04-26 13:25 | PDOC ---
Attending Attestation - HPI HPI: The patient is a 62 year old male, with a significant PMH of NIDDM, HTN, cervical spinal stenosis, CKD (stage 3B), and peripheral neuropathy, who was brought to the emergency department today by EMS from [facility], s/p near-syncopal episode secondary to his hypoglycemia. Patient glucose level was low earlier today, which caused his right leg to buckle earlier today, along with associated chills. Patient caught himself before he fell, and denies LOC. He reports short acting insulin was added to his daily medication regimen yesterday. The patient denies chest pain, shortness of breath, headache and dizziness. Denies fever, nausea, vomit, diarrhea and constipation. Denies dysuria, frequency, urgency and hematuria. Allergies: NKA Past surgical history: None reported Social history: No reported PCP: Dr. Myers 04/26/18 15:22 - Physicial Exam PE: GENERAL: The patient is in no acute distress. HEAD: Normal with no signs of trauma. EYES: PERRLA, EOMI, sclera anicteric, conjunctiva clear. ENT: Ears normal, nares patent, oropharynx clear without exudates. Moist mucous membranes. NECK: Normal range of motion, supple without lymphadenopathy, JVD, or masses. LUNGS: Breath sounds equal, clear to auscultation bilaterally. No wheezes, and no crackles. HEART:Regular rate and rhythm, normal S1 and S2 without murmur, rub or gallop. ABDOMEN: Soft, nontender, normoactive bowel sounds. No guarding, no rebound. No masses palpable. EXTREMITIES: Normal range of motion, no edema. No clubbing or cyanosis. No erythema, or tenderness. NEUROLOGICAL: Cranial nerves II through XII grossly intact. Normal speech. No focal neurological deficits. MUSCULOSKELETAL: Back non-tender to palpation, no CVA tenderness SKIN: Warm, Dry, normal turgor, no rashes or lesions noted. 04/26/18 16:20 - Medical Decision Making Documentation prepared by MT Salamanca, acting as medical cost consultant for Mar Coy MD/DO. 04/26/18 15:22 <Lynne Reid - Last Filed: 04/26/18 16:20> - Resident Resident Name: Booker Fernando - ED Attending Attestation I have performed the following: I have examined & evaluated the patient, The case was reviewed & discussed with the resident, I agree w/resident's findings & plan, Exceptions are as noted - Medical Decision Making 04/26/18 13:24 EKG - Twelve-lead EKG was performed and reviewed by me. There is normal sinus rhythm with a normal rate. The axis is normal. The intervals are normal. There are no ST or T wave abnormalities. Impression: Normal twelve-lead EKG Pt s/p pre syncopal episode FS reportedly low Pt brought to the ER for evaluation Currently pt state he feels well Pt po challenged States he feels well Laboratory Tests 01/14/18 01/14/18 04/26/18 20:20 20:20 13:48 WBC 6.7 6.3 Hgb 14.0 12.4 Hct 41.4 D 35.5 Plt Count 188 198 Sodium Potassium Chloride Carbon Dioxide BUN 25 H Creatinine 2.2 H Random Glucose 38 L* Creatine Kinase Troponin I 04/26/18 13:56 WBC Hgb Hct Plt Count Sodium 132 L Potassium 4.3 Chloride 100 Carbon Dioxide 24 BUN 36 H Creatinine 2.8 H Random Glucose 235 H Creatine Kinase 89 Troponin I < 0.02 Renal insufficiency noted Pt po challenged Will plan to discharge back to the nursing facility 04/28/18 10:17 <Mar Coy - Last Filed: 04/28/18 10:17> Heart Score/ECG Review - ECG Intrepretation Comment:: Normal sinus rhythm with sinus arrhythmia. Normal ECG. 04/26/18 14:15 <Lynne Reid - Last Filed: 04/26/18 16:20>
--- NOTE | 2018-04-26 13:32 | PDOC ---
History of Present Illness - General Chief Complaint: Syncope/Near Syncope Stated Complaint: Syncope/Near Syncope Time Seen by Provider: 04/26/18 12:52 History Source: Patient, Longterm Records Exam Limitations: No Limitations - History of Present Illness Initial Comments: 04/26/18 13:30 Pt. is a 62 y.o. M w/ PMHx. of NIDDM, HTN, cervical spinal stenosis, CKD (Stage 3b) and peripheral neuropathy presents to the ED from [facility] after a Near-syncopal episode 2/2 hypoglycemia. Pt. states that he was walking with with walker when his right leg buckled. Pt. denies falling or losing consciousness and states he was able to get to a chair under his own strength. He felt hot, and sweaty at that time. A nurse at the facility observed and checked his glucose and saw that it was low. Pt. denies receiving any food or drink at the facility after hearing his glucose was low. [facility] was called and Pt. was sent here. Pt. states that 3 weeks ago he was hospitalized at [facility] for an infection where his Levemir dosage was increased to better control glucose. Yesterday short acting insulin was added to his regimen. Pt. denies any symptoms at this time including: chest pain, lightheadedness, dizziness, diaphoresis abdominal pain or shortness of breath. EKG-NSR Troponins, CBC, CMP and food were ordered for the patient. Timing/Duration: resolved prior to arrival Severity: mild Modifying Factors: improves with: movement (worsens), rest (improves) Associated Symptoms: reports: denies symptoms Aspirin Received prior to arrival: Yes: 81 mg x 1 Beta Miki Taken at Home(Core Measure): Yes Past History - Past Medical History Allergies/Adverse Reactions: Allergies Allergy/AdvReac Type Severity Reaction Status Date / Time No Known Drug Allergies Allergy Verified 04/26/18 12:07 Cardiac Disorders: Yes (CAD) COPD: No Diabetes: Yes Hx Glaucoma: Yes HTN: Yes Psychiatric Problems: Yes (depression) - Surgical History Abdominal Surgery: No Appendectomy: No Cardiac Surgery: No Cholecystectomy: No Gastric Stapling: No GI Surgery: No Lung Surgery: No Neurologic Surgery: No Orthopedic Surgery: No - Suicide/Smoking/Psychosocial Hx Smoking History: Unknown if ever smoked Have you smoked in the past 12 months: No Hx Alcohol Use: Yes Drug/Substance Use Hx: No Substance Use Type: Alcohol Hx Substance Use Treatment: No Review of Systems - Review of Systems Able to Perform ROS?: Yes Is the patient limited Spanish proficient: No Constitutional: No: Symptoms Reported, Chills, Fever, Loss of Appetite, Weakness HEENTM: No: Symptoms Reported, Recent change in vision Respiratory: No: Symptoms reported Cardiac (ROS): No: Symptoms Reported ABD/GI: No: Symptoms Reported : No: Symptoms Reported, Dysuria, Discharge, Frequency, Flank Pain, Hematuria , Incontinence, Pain, Urgency Musculoskeletal: No: Symptoms Reported Integumentary: No: Symptoms Reported, Erythema Neurological: Yes: Symptoms reported, Numbness (b/l LE up til just above the knees), Unsteady Gait. No: Weakness Psychiatric: Yes: Depression Endocrine: No: Symptoms Reported Hematologic/Lymphatic: No: Symptoms Reported *Physical Exam - Vital Signs Last Vital Signs Temp Pulse Resp BP Pulse Ox 98.2 F 68 18 110/68 100 04/26/18 12:14 04/26/18 12:14 04/26/18 12:14 04/26/18 12:14 04/26/18 12:14 - Physical Exam General Appearance: Yes: Nourished, Appropriately Dressed. No: Apparent Distress HEENT: positive: JUANITO, Normal ENT Inspection, Normal Voice, Symmetrical, Pharynx Normal, Hearing Grossly Normal. negative: Scleral Icterus (R), Scleral Icterus (L), Pharyngeal Erythema, Tonsillar Exudate, Tonsillar Erythema Neck: positive: Supple. negative: Tender Respiratory/Chest: positive: Lungs Clear, Normal Breath Sounds. negative: Chest Tender, Respiratory Distress, Accessory Muscle Use, Labored Respiration, Rapid RR, Crackles, Rales, Wheezing Cardiovascular: positive: Regular Rhythm, Regular Rate, S1, S2. negative: Edema , JVD, Murmur Vascular Pulses: Dorsalis-Pedis (R): 2+, Doralis-Pedis (L): 2+ Gastrointestinal/Abdominal: positive: Normal Bowel Sounds, Soft. negative: Protuberent, Guarding, Rebound, Tenderness, Hernia Male Genitalia: negative: CVAT Rectal Exam: positive: deferred Musculoskeletal: negative: CVA Tenderness Extremity: positive: Normal Inspection, Normal Range of Motion, Pelvis Stable. negative: Tender, Coldness, Swelling, Calf Tenderness Integumentary: positive: Normal Color, Dry, Warm, Swelling (right arm swelling and bruise from previous attempt at getting IV access ), Bruising. negative: Ecchymosis Neurologic: positive: Alert, Normal Mood/Affect, Normal Response, Motor Strength 5/5, Respond to painful stimul, Responsive, Numbness, Sensory Deficit Moderate Sedation - Procedure Monitoring Vital Signs: Procedure Monitoring Vital Signs Temperature 98.2 F 04/26/18 12:14 Pulse Rate 68 04/26/18 12:14 Respiratory Rate 18 04/26/18 12:14 Blood Pressure 110/68 04/26/18 12:14 O2 Sat by Pulse Oximetry (%) 100 04/26/18 12:14 ED Treatment Course - LABORATORY CBC & Chemistry Diagram: 04/26/18 13:48 04/26/18 13:56 *DC/Admit/Observation/Transfer Diagnosis at time of Disposition: Hypoglycemia - Discharge Dispostion Disposition: CARE HOME FACILITY Condition at time of disposition: Improved Decision to Admit order: No - Referrals Referrals: Ty Myers MD [Primary Care Provider] - - Patient Instructions Printed Discharge Instructions: DI for Syncope in Adults (Fainting) Additional Instructions: You came in for low blood sugar. We evaluated you and found that you did not have low blood sugar. Please continue taking your medications as they were prescribed. Please follow up with your Primary Care Physician within 1 week. Please return to the ED if you are having fainting, shortness of breath, palpitations, confusion or any other concerning symptoms. - Post Discharge Activity
[2018-04-26 14:05] LABS: BASO % 0.5 % (0-2.0); EOS % 2.8 % (0-4.5); HEMATOCRIT 35.5 % (35.4-49); HEMOGLOBIN 12.4 GM/dL (11.7-16.9); LYMPH % 18.4 % (8-40); MCH 32.9 pg (25.7-33.7); MCHC 34.8 g/dl (32.0-35.9); MEAN CELL VOLUME 94.4 fl (80-96); MEAN PLT VOLUME 9.6 fl (7.5-11.1); MONO % 13.7 % (3.8-10.2); NEUT % 64.6 % (42.8-82.8); PLATELET COUNT 198 K/MM3 (134-434); RBC 3.76 M/mm3 (4.00-5.60); RDW 13.5 % (11.9-15.9); WHITE BLOOD COUNT 6.3 K/mm3 (4.0-10.0)
[2018-04-26 14:33] LABS: ALBUMIN 3.2 g/dl (3.4-5.0); ALK PHOS 91 U/L (45-117); ANION GAP 8 MMOL/L (8-16); BILIRUBIN,TOTAL 0.4 mg/dL (0.2-1); BLOOD UREA NITROGEN 36 mg/dL (7-18); CALCIUM 8.2 mg/dL (8.5-10.1); CHLORIDE 100 mmol/L (98-107); CO2 24 mmol/L (21-32); CREATININE 2.8 mg/dL (0.55-1.3); GLUCOSE,RANDOM 235 mg/dL (74-106); POTASSIUM 4.3 mmol/L (3.5-5.1); SGOT/AST 14 U/L (15-37); SGPT/ALT 22 U/L (13-61); SODIUM 132 mmol/L (136-145); TOT PROT 6.6 g/dl (6.4-8.2)
--- NOTE | 2018-04-26 15:45 | EKG ---
Test Reason : Blood Pressure : / mmHG Vent. Rate : 064 BPM Atrial Rate : 064 BPM P-R Int : 160 ms QRS Dur : 086 ms QT Int : 408 ms P-R-T Axes : 032 014 057 degrees QTc Int : 420 ms NORMAL SINUS RHYTHM WITH SINUS ARRHYTHMIA NORMAL ECG WHEN COMPARED WITH ECG OF 14-JAN-2018 19:59, QT HAS SHORTENED Confirmed by VIDA ALVARENGA, RADHA ([id number]) on 04/26/2018 3:45:44 PM Referred By: Confirmed By:RADHA MCPHERSON MD
[2018-04-26 16:55] VITALS: BP 140/70; PULSE 70
== END 2018-04-26 17:14 ==
LOC: JER 11:52
DX: E11.649 Type 2 diabetes mellitus with hypoglycemia without coma (principal); R55 Syncope and collapse; Z79.84 Long term (current) use of oral hypoglycemic drugs; I12.9 Hypertensive chronic kidney disease with stage 1 through stage 4 chronic kidney disease, or unspecified chronic kidney disease; E11.22 Type 2 diabetes mellitus with diabetic chronic kidney disease; N18.3 Chronic kidney disease, stage 3 (moderate); G62.9 Polyneuropathy, unspecified; M48.02 Spinal stenosis, cervical region
CPT/HCPCS: 36415; 80053; 82550; 83735; 84484; 85025; 93005; 93010; 99282-25

== ENCOUNTER 2021-06-11 14:45 | Emergency (ER) | payer OTHER ==
[2021-06-11 15:41] VITALS: BP 198/99; TEMP 97.9; BMI 29.3
[2021-06-11] MEDS ORDERED: LIDOCAINE 5% TOPICAL PATCH TP ONE (16:10)
[2021-06-11] MEDS ORDERED: ACETAMINOPHEN 325 MG TABLET (FP) PO ONE (16:10)
[2021-06-11] MEDS ORDERED: ACETAMINOPHEN 325 MG TABLET (FP) ONE (16:56)
[2021-06-11] MEDS ORDERED: LIDOCAINE 5% TOPICAL PATCH ONE (16:56)
[2021-06-11 17:01] LABS: BASO % 0.5 % (0-2.0); EOS % 2.9 % (0-4.5); HEMATOCRIT 37.7 % (35.4-49); HEMOGLOBIN 12.1 GM/dL (11.7-16.9); MCH 31.1 pg (25.7-33.7); MCHC 32.1 g/dl (32.0-35.9); MEAN CELL VOLUME 96.8 fl (80-96); MEAN PLT VOLUME 10.7 fl (7.5-11.1); NEUT % 73.6 % (42.8-82.8); PLATELET COUNT 144 10^3/uL (134-434); RDW 14.4 % (11.9-15.9); WHITE BLOOD COUNT 5.1 K/mm3 (4.0-10.0)
[2021-06-11 17:09] VITALS: PULSE 74
[2021-06-11 17:22] LABS: CHLORIDE 106 mmol/L (98-107); SODIUM 138 mmol/L (136-145)
[2021-06-11 17:25] LABS: CALCIUM 8.4 mg/dL (8.5-10.1)
[2021-06-11 17:26] LABS: ALBUMIN 3.5 g/dl (3.4-5.0); ANION GAP 7 MMOL/L (8-16); BLOOD UREA NITROGEN 34.8 mg/dL (7-18); CO2 25 mmol/L (21-32); MAGNESIUM 2.2 mg/dL (1.8-2.4)
[2021-06-11 17:29] LABS: CREATININE 2.8 mg/dL (0.55-1.3); SGOT/AST 23 U/L (15-37); SGPT/ALT 33 U/L (13-61)
[2021-06-11 17:31] LABS: BILIRUBIN,TOTAL 0.2 mg/dL (0.2-1); TOT PROT 6.6 g/dl (6.4-8.2)
[2021-06-11 17:32] LABS: ALK PHOS 100 U/L (45-117)
[2021-06-11] MEDS ORDERED: amLODIPine BESYLATE 5 MG TABLET (FP) PO ONE (18:06)
[2021-06-11 18:08] LABS: GLUCOSE,RANDOM 452 mg/dL (74-106)
[2021-06-11] MEDS ORDERED: amLODIPine BESYLATE 5 MG TABLET (FP) ONE (18:12)
[2021-06-11] MEDS ORDERED: INSULIN (NOVOLOG) ASPART 100 UNITS/ML 10ML VIAL SQ ONE (18:19)
[2021-06-11] MEDS ORDERED: LIDOCAINE PATCH REMOVAL MC SCH (22:00)
== END 2021-06-11 22:59 ==
LOC: JER 14:45
PROC: 3E023GC Introduction of Other Therapeutic Substance into Muscle, Percutaneous Approach (ICD-10-PCS; principal; 2021-06-11)
DX: S20.211A Contusion of right front wall of thorax, initial encounter (principal); E11.65 Type 2 diabetes mellitus with hyperglycemia; Y99.9 Unspecified external cause status
CPT/HCPCS: 36415; 71046-TC-FY; 80053; 82550; 82553; 82962; 83735; 84484; 85025; 93005; 93010; 99285-25

== ENCOUNTER 2021-08-22 18:57 | Inpatient (IN) | payer OTHER ==
[2021-08-22] MEDS ORDERED: DEXTROSE 50%-WATER 25 GM/50 ML DISP.SYRIN ONE ×2 (19:09→19:10)
[2021-08-22] MEDS ORDERED: DEXTROSE 50%-WATER - 25 GM/50 ML VIAL IVPUSH ONE ×2 (19:09)
[2021-08-22] MEDS ORDERED: DEXTROSE 5%-LACTATED RINGERS 1,000 ML IV SCH (19:15)
[2021-08-22] MEDS ORDERED: SODIUM CHLORIDE 0.9% 500 ML INFUS.BAG IV ONE ×2 (19:40→22:51)
[2021-08-22] MEDS ORDERED: VANCOMYCIN 1,000 MG in DEXTROSE 5%-WATER - 250 ML IVPB ONE (20:03)
[2021-08-22] MEDS ORDERED: PIPERACILLIN/TAZOB 4.5 GM 4.5 GM in DEXTROSE 5%-WATER 100 ML IVPB ONE (20:03)
[2021-08-22 20:05] LABS: BASO % 0.3 % (0-2.0); HEMATOCRIT 37.2 % (35.4-49); HEMOGLOBIN 12.5 GM/dL (11.7-16.9); LYMPH % 27.4 % (8-40); MCH 31.8 pg (25.7-33.7); MCHC 33.5 g/dl (32.0-35.9); MEAN CELL VOLUME 94.8 fl (80-96); MEAN PLT VOLUME 10.5 fl (7.5-11.1); MONO % 8.5 % (3.8-10.2); NEUT % 59.8 % (42.8-82.8); PLATELET COUNT 153 10^3/uL (134-434); RBC 3.93 M/mm3 (4.00-5.60); RDW 13.8 % (11.9-15.9); WHITE BLOOD COUNT 6.5 K/mm3 (4.0-10.0)
[2021-08-22 20:09] LABS: VENOUS BASE EXCESS -7.5 mmol/L (-2-2); VENOUS PH 7.266 (7.310-7.410)
[2021-08-22] MEDS ORDERED: PIPERACILLIN/TAZOB 4.5 GM 4.5 GM/100 ML BAG IVPB ONE (20:11)
[2021-08-22] MEDS ORDERED: VANCOMYCIN 1 GRAM (PRE-DOCKED) 1,000 MG/250 ML BAG IVPB ONE (20:12)
[2021-08-22 20:14] LABS: CHLORIDE 105 mmol/L (98-107); SODIUM 138 mmol/L (136-145)
[2021-08-22 20:16] LABS: CALCIUM 8.5 mg/dL (8.5-10.1)
[2021-08-22 20:17] LABS: ANION GAP 10 MMOL/L (8-16); BLOOD UREA NITROGEN 35.6 mg/dL (7-18); CO2 23 mmol/L (21-32); MAGNESIUM 2.2 mg/dL (1.8-2.4)
[2021-08-22 20:20] LABS: PHOSPHOROUS 3.4 mg/dL (2.5-4.9); SGOT/AST 28 U/L (15-37); SGPT/ALT 30 U/L (13-61)
[2021-08-22 20:21] LABS: ACTIVATED PTT 37.1 SECONDS (25.2-36.5); INR 0.85 (0.83-1.09); PROTHROMBIN TIME (PATIENT) 9.8 SEC (9.7-13.0)
[2021-08-22 20:22] LABS: BILIRUBIN,TOTAL 0.3 mg/dL (0.2-1); TOT PROT 7.6 g/dl (6.4-8.2)
[2021-08-22 20:23] LABS: ALK PHOS 100 U/L (45-117)
[2021-08-22 20:43] LABS: LACTIC ACID 2.6 mmol/L (0.4-2.0)
[2021-08-22 20:43] LABS: GLUCOSE,RANDOM 42 mg/dL (74-106)
[2021-08-22 20:50] LABS: EPI CELLS 6 /uL (0-25.1); HYALINE CASTS 0 /uL (0-3.1); URINE APPEARANCE CLEAR; URINE BACTERIA 0 /uL (0-1359); URINE BILIRUBIN NEGATIVE (NEGATIVE); URINE COLOR YELLOW; URINE GLUCOSE (UA) 1+ (NEGATIVE); URINE KETONE NEGATIVE (NEGATIVE); URINE LEUK ESTERASE NEGATIVE (NEGATIVE); URINE NITRITE NEGATIVE (NEGATIVE); URINE PROTEIN 2+ (NEGATIVE); URINE RBC 6 /uL (0-23.9); URINE UROBILINOGEN 0.2 mg/dL (0.2-1.0); URINE WBC 2 /uL (0-25.8)
[2021-08-22] MEDS ORDERED: ACETAMINOPHEN 1000 MG/100 ML BAG IVPB ONE (21:07)
[2021-08-22] MEDS ORDERED: ACETAMINOPHEN INJECTION 100 ML IVPB ONE (21:21)
[2021-08-22] MEDS ORDERED: POTASSIUM CHLORIDE TABS 20 MEQ TABLET.ER (FP) PO ONE ×3 (21:32→23:44)
[2021-08-22 22:06] LABS: LACTIC ACID 2.7 mmol/L (0.4-2.0)
[2021-08-22] MEDS ORDERED: POTASSIUM CHLORIDE ORAL LIQUID 20 MEQ/15 ML PO ONE (22:50)
[2021-08-22] MEDS ORDERED: KCL 10 MEQ IVPB 10 MEQ/100 ML INFUS.BAG IVPB SCH ×2 (23:00→23:45)
[2021-08-22] MEDS ORDERED: DEXTROSE 50%-WATER - 25 GM/50 ML VIAL IVPUSH PRN (23:01)
[2021-08-22] MEDS ORDERED: POTASSIUM CHLORIDE ORAL LIQUID 20 MEQ/15 ML ONE (23:19)
[2021-08-22] MEDS ORDERED: KCL 10 MEQ IVPB 10 MEQ/100 ML INFUS.BAG IVPB ONE (23:19)
[2021-08-23] MEDS ORDERED: PIPERACILLIN/TAZOB 2.25 GM 2.25 GM in DEXTROSE 5%-WATER - 50 ML IVPB SCH (03:00)
[2021-08-23] MEDS: PIPERACILLIN/TAZOB 2.25 GM 2.25 GM in DEXTROSE 5%-WATER - 50 ML IVPB SCH ×2 (03:30→12:53)
[2021-08-23] MEDS: HEPARIN NA (PORCINE) 5,000 UNITS/ML 1ML VIAL SQ SCH ×3 (06:28→21:51)
[2021-08-23] MEDS: INSULIN SLIDING SCALE (NOVOLOG) 1 VIAL SQ SCH ×4 (06:29→22:22)
[2021-08-23 06:58] LABS: BASO % 0.2 % (0-2.0); EOS % 1.7 % (0-4.5); HEMATOCRIT 36.8 % (35.4-49); LYMPH % 9.1 % (8-40); MCH 31.4 pg (25.7-33.7); MCHC 32.5 g/dl (32.0-35.9); MEAN CELL VOLUME 96.4 fl (80-96); MEAN PLT VOLUME 10.4 fl (7.5-11.1); MONO % 6.3 % (3.8-10.2); NEUT % 82.7 % (42.8-82.8); PLATELET COUNT 160 10^3/uL (134-434); RBC 3.81 M/mm3 (4.00-5.60); RDW 13.8 % (11.9-15.9); WHITE BLOOD COUNT 8.8 K/mm3 (4.0-10.0)
[2021-08-23 08:23] LABS: ALBUMIN 3.4 g/dl (3.4-5.0); BILIRUBIN,TOTAL 0.4 mg/dL (0.2-1); BLOOD UREA NITROGEN 34.6 mg/dL (7-18); CALCIUM 8.2 mg/dL (8.5-10.1); CREATININE 2.8 mg/dL (0.55-1.3); MAGNESIUM 2.1 mg/dL (1.8-2.4); PHOSPHOROUS 2.7 mg/dL (2.5-4.9); TOT PROT 6.9 g/dl (6.4-8.2)
[2021-08-23] MEDS ORDERED: VANCOMYCIN 1 GM in D5W (PRE-DOCKED) 1,000 MG/250 ML IVPB SCH (10:00)
[2021-08-23] MEDS: MULTIVITAMINS (DAILY MVI) TABLET (FP) PO SCH (11:06)
[2021-08-23] MEDS: FLUoxetine HCL 20 MG CAPSULE PO SCH (11:06)
[2021-08-23] MEDS: PANTOPRAZOLE 40 MG TABLET PO SCH (11:06)
[2021-08-23] MEDS: FAMOTIDINE 20 MG TABLET PO SCH (11:06)
[2021-08-23] MEDS: ASPIRIN 81 MG CHEWABLE TABLETS PO SCH (11:06)
[2021-08-23] MEDS: CHOLECALCIFEROL (VIT D3) 1,000 UNIT (25 MCG) TABLET PO SCH (11:07)
[2021-08-23] MEDS: ASCORBIC ACID 500 MG TABLET (FP) PO SCH (11:07)
[2021-08-23] MEDS: CALCITRIOL 0.25 MCG CAPSULE (FP) PO SCH (11:07)
[2021-08-23] MEDS: amLODIPine BESYLATE 5 MG TABLET (FP) PO SCH (11:07)
[2021-08-23] MEDS: SODIUM ZIRCONIUM CYCLOSILICATE (LOKELMA) 5 GM PACKET PO SCH (11:08)
[2021-08-23] MEDS: PREGABALIN 50 MG CAPSULE PO SCH ×2 (11:08→21:51)
[2021-08-23] MEDS: LORATADINE 10 MG TABLET PO SCH (11:08)
[2021-08-23] MEDS: PRAMIPEXOLE DIHYDROCHLORIDE 0.25 MG TABLET PO SCH ×2 (11:08→21:51)
[2021-08-23] MEDS: ARTIFICIAL TEARS (POLYVINYL ALCOHOL) OPTH DROPS OU SCH ×2 (11:19→21:52)
[2021-08-23] MEDS ORDERED: AZITHROMYCIN IVPB 500 MG in DEXTROSE 5%-WATER - 250 ML IVPB ONE (14:00)
[2021-08-23 14:37] LABS: METHADONE, UR NEGATIVE (NEGATIVE); PHENCYCLIDINE,URINE NEGATIVE (NEGATIVE)
[2021-08-23 14:38] LABS: OPIATES, URI NEGATIVE (NEGATIVE); URINE BARBITURATES NEGATIVE (NEGATIVE)
[2021-08-23 14:48] LABS: COCAINE, UR NEGATIVE (NEGATIVE); URINE AMPHETAMINES NEGATIVE (NEGATIVE); URINE BENZODIAZEPINES NEGATIVE (NEGATIVE)
[2021-08-23] MEDS ORDERED: DEXTROSE 5%-WATER - 50 ML IVPB ONE (14:59)
[2021-08-23] MEDS ORDERED: cefTRIAXone SODIUM 1 GM VIAL ONE (14:59)
[2021-08-23] MEDS ORDERED: AZITHROMYCIN IVPB 500 MG/250 ML BAG IVPB ONE (15:00)
[2021-08-23] MEDS: CEFTRIAXONE 1 GM in DEXTROSE 5%-WATER - 50 ML IVPB SCH (15:06)
[2021-08-23] MEDS: LATANOPROST 0.005% OPHTH SOLN 2.5ML BOTTLE OU SCH (22:24)
[2021-08-24 00:06] LABS: SARS-CoV-2 NAA Not Detected (Not Detected)
[2021-08-24] MEDS: HEPARIN NA (PORCINE) 5,000 UNITS/ML 1ML VIAL SQ SCH ×3 (05:40→21:30)
[2021-08-24] MEDS: INSULIN SLIDING SCALE (NOVOLOG) 1 VIAL SQ SCH ×4 (06:08→21:32)
[2021-08-24 07:18] LABS: BASO % 0.4 % (0-2.0); EOS % 4.7 % (0-4.5); HEMATOCRIT 35.4 % (35.4-49); LYMPH % 15.2 % (8-40); MCH 32.3 pg (25.7-33.7); MCHC 33.9 g/dl (32.0-35.9); MEAN PLT VOLUME 10.4 fl (7.5-11.1); NEUT % 68.7 % (42.8-82.8); PLATELET COUNT 148 10^3/uL (134-434); RBC 3.73 M/mm3 (4.00-5.60); WHITE BLOOD COUNT 4.8 K/mm3 (4.0-10.0)
[2021-08-24 07:41] LABS: ALBUMIN 3.1 g/dl (3.4-5.0); BLOOD UREA NITROGEN 33.1 mg/dL (7-18); CALCIUM 8.4 mg/dL (8.5-10.1)
[2021-08-24 07:44] LABS: CREATININE 2.8 mg/dL (0.55-1.3)
[2021-08-24 07:46] LABS: BILIRUBIN,TOTAL 0.5 mg/dL (0.2-1); TOT PROT 6.4 g/dl (6.4-8.2)
[2021-08-24] MEDS ORDERED: cefTRIAXone SODIUM 1 GM VIAL ONE (09:07)
[2021-08-24] MEDS ORDERED: DEXTROSE 5%-WATER - 50 ML IVPB ONE (09:07)
[2021-08-24] MEDS: CALCITRIOL 0.25 MCG CAPSULE (FP) PO SCH (09:37)
[2021-08-24] MEDS: FLUoxetine HCL 20 MG CAPSULE PO SCH (09:38)
[2021-08-24] MEDS: PANTOPRAZOLE 40 MG TABLET PO SCH (09:38)
[2021-08-24] MEDS: ASPIRIN 81 MG CHEWABLE TABLETS PO SCH (09:38)
[2021-08-24] MEDS: ASCORBIC ACID 500 MG TABLET (FP) PO SCH (09:38)
[2021-08-24] MEDS: PRAMIPEXOLE DIHYDROCHLORIDE 0.25 MG TABLET PO SCH ×2 (09:38→21:29)
[2021-08-24] MEDS: amLODIPine BESYLATE 5 MG TABLET (FP) PO SCH (09:38)
[2021-08-24] MEDS: CHOLECALCIFEROL (VIT D3) 1,000 UNIT (25 MCG) TABLET PO SCH (09:38)
[2021-08-24] MEDS: FAMOTIDINE 20 MG TABLET PO SCH (09:38)
[2021-08-24] MEDS: PREGABALIN 50 MG CAPSULE PO SCH ×2 (09:38→21:29)
[2021-08-24] MEDS: SODIUM ZIRCONIUM CYCLOSILICATE (LOKELMA) 5 GM PACKET PO SCH ×2 (09:38→21:29)
[2021-08-24] MEDS: LORATADINE 10 MG TABLET PO SCH (09:38)
[2021-08-24] MEDS: MULTIVITAMINS (DAILY MVI) TABLET (FP) PO SCH (09:38)
[2021-08-24] MEDS: ARTIFICIAL TEARS (POLYVINYL ALCOHOL) OPTH DROPS OU SCH ×2 (09:39→21:30)
[2021-08-24] MEDS: CEFTRIAXONE 1 GM in DEXTROSE 5%-WATER - 50 ML IVPB SCH (09:39)
[2021-08-24] MEDS: AZITHROMYCIN IVPB 250 MG in DEXTROSE 5%-WATER - 250 ML IVPB SCH (10:30)
[2021-08-24] MEDS: INSULIN (LEVEMIR) 100 UNITS/ML UNITS SQ SCH (21:28)
[2021-08-24] MEDS: LATANOPROST 0.005% OPHTH SOLN 2.5ML BOTTLE OU SCH (21:30)
[2021-08-25] MEDS: HEPARIN NA (PORCINE) 5,000 UNITS/ML 1ML VIAL SQ SCH ×3 (06:38→21:12)
[2021-08-25] MEDS: INSULIN SLIDING SCALE (NOVOLOG) 1 VIAL SQ SCH ×4 (06:39→21:34)
[2021-08-25 07:28] LABS: BASO % 0.6 % (0-2.0); EOS % 6.2 % (0-4.5); HEMATOCRIT 37.2 % (35.4-49); HEMOGLOBIN 12.1 GM/dL (11.7-16.9); LYMPH % 19.5 % (8-40); MCH 31.3 pg (25.7-33.7); MCHC 32.5 g/dl (32.0-35.9); MEAN CELL VOLUME 96.2 fl (80-96); MEAN PLT VOLUME 10.3 fl (7.5-11.1); MONO % 13.6 % (3.8-10.2); NEUT % 60.1 % (42.8-82.8); PLATELET COUNT 152 10^3/uL (134-434); RBC 3.87 M/mm3 (4.00-5.60); RDW 13.8 % (11.9-15.9); WHITE BLOOD COUNT 4.8 K/mm3 (4.0-10.0)
[2021-08-25 07:36] LABS: ALBUMIN 3.1 g/dl (3.4-5.0); BLOOD UREA NITROGEN 32.5 mg/dL (7-18)
[2021-08-25 07:38] LABS: CALCIUM 8.5 mg/dL (8.5-10.1)
[2021-08-25 07:39] LABS: CREATININE 2.9 mg/dL (0.55-1.3)
[2021-08-25 07:41] LABS: BILIRUBIN,TOTAL 0.4 mg/dL (0.2-1); TOT PROT 6.6 g/dl (6.4-8.2)
[2021-08-25] MEDS ORDERED: cefTRIAXone SODIUM 1 GM VIAL ONE (09:52)
[2021-08-25] MEDS ORDERED: DEXTROSE 5%-WATER - 50 ML IVPB ONE (09:52)
[2021-08-25] MEDS: MULTIVITAMINS (DAILY MVI) TABLET (FP) PO SCH (10:18)
[2021-08-25] MEDS: PANTOPRAZOLE 40 MG TABLET PO SCH (10:18)
[2021-08-25] MEDS: PRAMIPEXOLE DIHYDROCHLORIDE 0.25 MG TABLET PO SCH ×2 (10:18→21:11)
[2021-08-25] MEDS: FAMOTIDINE 20 MG TABLET PO SCH (10:18)
[2021-08-25] MEDS: CHOLECALCIFEROL (VIT D3) 1,000 UNIT (25 MCG) TABLET PO SCH (10:18)
[2021-08-25] MEDS: LORATADINE 10 MG TABLET PO SCH (10:18)
[2021-08-25] MEDS: PREGABALIN 50 MG CAPSULE PO SCH ×2 (10:18→21:11)
[2021-08-25] MEDS: amLODIPine BESYLATE 5 MG TABLET (FP) PO SCH (10:18)
[2021-08-25] MEDS: FLUoxetine HCL 20 MG CAPSULE PO SCH (10:18)
[2021-08-25] MEDS: ASCORBIC ACID 500 MG TABLET (FP) PO SCH (10:18)
[2021-08-25] MEDS: ASPIRIN 81 MG CHEWABLE TABLETS PO SCH (10:18)
[2021-08-25] MEDS: CALCITRIOL 0.25 MCG CAPSULE (FP) PO SCH (10:18)
[2021-08-25] MEDS: CEFTRIAXONE 1 GM in DEXTROSE 5%-WATER - 50 ML IVPB SCH (10:19)
[2021-08-25] MEDS: ARTIFICIAL TEARS (POLYVINYL ALCOHOL) OPTH DROPS OU SCH ×2 (10:19→21:17)
[2021-08-25] MEDS: AZITHROMYCIN IVPB 250 MG in DEXTROSE 5%-WATER - 250 ML IVPB SCH (10:20)
[2021-08-25] MEDS: SODIUM ZIRCONIUM CYCLOSILICATE (LOKELMA) 5 GM PACKET PO SCH ×2 (10:24→21:12)
[2021-08-25] MEDS ORDERED: LOPERAMIDE HCL 2 MG CAPSULE PO ONE (10:29)
[2021-08-25] MEDS: metoPROLOL SUCCINATE 25 MG TAB.SR.24H (FP) PO SCH (14:12)
[2021-08-25] MEDS: LATANOPROST 0.005% OPHTH SOLN 2.5ML BOTTLE OU SCH (21:17)
[2021-08-25] MEDS: INSULIN (LEVEMIR) 100 UNITS/ML UNITS SQ SCH (21:33)
[2021-08-26] MEDS: HEPARIN NA (PORCINE) 5,000 UNITS/ML 1ML VIAL SQ SCH (05:54)
[2021-08-26] MEDS: INSULIN SLIDING SCALE (NOVOLOG) 1 VIAL SQ SCH ×2 (06:02→11:53)
[2021-08-26 07:16] LABS: BASO % 0.7 % (0-2.0); EOS % 5.1 % (0-4.5); HEMATOCRIT 36.4 % (35.4-49); HEMOGLOBIN 12.1 GM/dL (11.7-16.9); LYMPH % 23.2 % (8-40); MCH 31.6 pg (25.7-33.7); MCHC 33.2 g/dl (32.0-35.9); MEAN CELL VOLUME 95.1 fl (80-96); MEAN PLT VOLUME 9.8 fl (7.5-11.1); MONO % 11.6 % (3.8-10.2); NEUT % 59.4 % (42.8-82.8); PLATELET COUNT 166 10^3/uL (134-434); RBC 3.83 M/mm3 (4.00-5.60); RDW 13.9 % (11.9-15.9); WHITE BLOOD COUNT 4.9 K/mm3 (4.0-10.0)
[2021-08-26 07:31] LABS: CALCIUM 8.4 mg/dL (8.5-10.1)
[2021-08-26 07:35] LABS: CREATININE 2.8 mg/dL (0.55-1.3)
[2021-08-26 07:36] LABS: BILIRUBIN,TOTAL 0.4 mg/dL (0.2-1); TOT PROT 6.4 g/dl (6.4-8.2)
[2021-08-26] MEDS ORDERED: cefTRIAXone SODIUM 1 GM VIAL ONE (09:59)
[2021-08-26] MEDS ORDERED: DEXTROSE 5%-WATER - 50 ML IVPB ONE (09:59)
[2021-08-26] MEDS: CEFTRIAXONE 1 GM in DEXTROSE 5%-WATER - 50 ML IVPB SCH (10:06)
[2021-08-26] MEDS: AZITHROMYCIN IVPB 250 MG in DEXTROSE 5%-WATER - 250 ML IVPB SCH (10:06)
[2021-08-26] MEDS: metoPROLOL SUCCINATE 25 MG TAB.SR.24H (FP) PO SCH (10:07)
[2021-08-26] MEDS: PRAMIPEXOLE DIHYDROCHLORIDE 0.25 MG TABLET PO SCH (10:07)
[2021-08-26] MEDS: FAMOTIDINE 20 MG TABLET PO SCH (10:07)
[2021-08-26] MEDS: FLUoxetine HCL 20 MG CAPSULE PO SCH (10:07)
[2021-08-26] MEDS: PREGABALIN 50 MG CAPSULE PO SCH (10:07)
[2021-08-26] MEDS: CHOLECALCIFEROL (VIT D3) 1,000 UNIT (25 MCG) TABLET PO SCH (10:07)
[2021-08-26] MEDS: ASCORBIC ACID 500 MG TABLET (FP) PO SCH (10:07)
[2021-08-26] MEDS: PANTOPRAZOLE 40 MG TABLET PO SCH (10:08)
[2021-08-26] MEDS: MULTIVITAMINS (DAILY MVI) TABLET (FP) PO SCH (10:08)
[2021-08-26] MEDS: ARTIFICIAL TEARS (POLYVINYL ALCOHOL) OPTH DROPS OU SCH (10:08)
[2021-08-26] MEDS: amLODIPine BESYLATE 5 MG TABLET (FP) PO SCH (10:08)
[2021-08-26] MEDS: ASPIRIN 81 MG CHEWABLE TABLETS PO SCH (10:08)
[2021-08-26] MEDS: LORATADINE 10 MG TABLET PO SCH (10:08)
[2021-08-26] MEDS: CALCITRIOL 0.25 MCG CAPSULE (FP) PO SCH (10:08)
[2021-08-26] MEDS: SODIUM ZIRCONIUM CYCLOSILICATE (LOKELMA) 5 GM PACKET PO SCH (10:09)
[2021-08-26 11:04] VITALS: BP 146/78; PULSE 61; TEMP 98.5
[2021-08-26 11:53] VITALS: BMI 30.7
== END 2021-08-26 15:13 | disposition home or self-care (01) | DRG 637 ==
LOC: JER 18:57 → JERBED 21:10 → J4W 08-23 02:42
PROVIDERS: ADMIT Internal Medicine; ATTEND Nurse Practitioner Family
DX: E11.649 Type 2 diabetes mellitus with hypoglycemia without coma (principal); J18.9 Pneumonia, unspecified organism; J96.00 Acute respiratory failure, unspecified whether with hypoxia or hypercapnia; G93.41 Metabolic encephalopathy; I24.8 Other forms of acute ischemic heart disease; E11.39 Type 2 diabetes mellitus with other diabetic ophthalmic complication; I12.9 Hypertensive chronic kidney disease with stage 1 through stage 4 chronic kidney disease, or unspecified chronic kidney disease; E11.22 Type 2 diabetes mellitus with diabetic chronic kidney disease; E11.40 Type 2 diabetes mellitus with diabetic neuropathy, unspecified; F32.9 Major depressive disorder, single episode, unspecified; I25.10 Atherosclerotic heart disease of native coronary artery without angina pectoris; K21.9 Gastro-esophageal reflux disease without esophagitis; E87.5 Hyperkalemia; M48.02 Spinal stenosis, cervical region; E66.9 Obesity, unspecified; Z68.30 Body mass index [BMI] 30.0-30.9, adult; N18.30 Chronic kidney disease, stage 3 unspecified
CPT/HCPCS: 36415; 70450-TC; 71045-TC-FY; 71250-TC; 72125-TC; 74176-TC; 80053; 80061; 80307; 81003; 82803; 82962; 83036; 83605; 83735; 83880; 84100; 84443; 84484; 85025; 85610; 85730; 87040; 87045; 87046; 87086; 87177; 87209; 87324; 87449; 93005; 93010; 93306-TC; 97116-GP; 97162-GP; 99285-25; C9803-CS; J1644; U0003; U0005

== ENCOUNTER 2021-12-05 11:46 | Inpatient (IN) | payer OTHER ==
[2021-12-05] MEDS ORDERED: RAPID SEQUENCE INTUBATION KIT NR ONE (12:26)
[2021-12-05] MEDS ORDERED: KETAMINE HCL 500 MG/10 ML VIAL ONE (12:36)
[2021-12-05] MEDS ORDERED: MIDAZOLAM IN 0.9 % SOD.CHLORID 1 MG/1 ML PLAST..BAG ONE (12:54)
[2021-12-05] MEDS ORDERED: ROCURONIUM BROMIDE 50 MG/5 ML VIAL IV ONE (12:55)
[2021-12-05] MEDS ORDERED: KETAMINE HCL 200 MG/20 ML VIAL IVPUSH ONE (12:55)
[2021-12-05] MEDS ORDERED: MIDAZOLAM IN 0.9 % SOD.CHLORID 100 MG/100 ML PLAST..BAG IVPB SCH (13:00)
[2021-12-05] MEDS ORDERED: CEFTRIAXONE 1,000 MG in DEXTROSE 5%-WATER - 50 ML IVPB ONE (13:20)
[2021-12-05] MEDS ORDERED: CEFTRIAXONE 1 GM/50 ML BAG ONE (13:29)
[2021-12-05 14:58] LABS: ARTERIAL BLD GAS O2 SATURATION 97.1 % (95-98); ARTERIAL BLOOD GAS BASE EXCESS -6.1 mmol/L (-2-2); ARTERIAL BLOOD GAS PO2 107.4 mmHg (80-100); ARTERIAL BLOOD GAS pH 7.251 (7.350-7.450)
[2021-12-05 14:59] LABS: VENOUS BASE EXCESS -6.5 mmol/L (-2-2); VENOUS O2 SATURATION 85.7 % (70-80); VENOUS PCO2 36.1 mmHg (38-52); VENOUS PH 7.333 (7.310-7.410)
[2021-12-05 15:01] LABS: BASO % 0.4 % (0-2.0); EOS % 2.5 % (0-4.5); HEMATOCRIT 33.7 % (35.4-49); HEMOGLOBIN 11.1 GM/dL (11.7-16.9); LYMPH % 21.9 % (8-40); MEAN CELL VOLUME 96.9 fl (80-96); MEAN PLT VOLUME 10.5 fl (7.5-11.1); MONO % 8.8 % (3.8-10.2); NEUT % 66.4 % (42.8-82.8); PLATELET COUNT 148 10^3/uL (134-434); RBC 3.48 M/mm3 (4.00-5.60); RDW 14.3 % (11.9-15.9); WHITE BLOOD COUNT 6.5 K/mm3 (4.0-10.0)
[2021-12-05 15:11] LABS: INR 0.96 (0.83-1.09)
[2021-12-05 15:12] LABS: ALLENS TEST POSITIVE
[2021-12-05 15:13] LABS: PT'S TEMP 97.6; VENT MODE A/C; VENT RATE 16
[2021-12-05 15:14] LABS: ACTIVATED PTT 33.7 SECONDS (25.2-36.5)
[2021-12-05 15:15] LABS: CHLORIDE 103 mmol/L (98-107); SODIUM 136 mmol/L (136-145)
[2021-12-05 15:17] LABS: ALBUMIN 3.8 g/dl (3.4-5.0); ANION GAP 11 MMOL/L (8-16); BLOOD UREA NITROGEN 42.6 mg/dL (7-18); CALCIUM 8.1 mg/dL (8.5-10.1); CO2 21 mmol/L (21-32); GLUCOSE,RANDOM 304 mg/dL (74-106)
[2021-12-05 15:20] LABS: CREATININE 3.5 mg/dL (0.55-1.3); SGOT/AST 25 U/L (15-37); SGPT/ALT 22 U/L (13-61)
[2021-12-05 15:22] LABS: BILIRUBIN,TOTAL 0.5 mg/dL (0.2-1); TOT PROT 7.3 g/dl (6.4-8.2)
[2021-12-05 15:23] LABS: ALK PHOS 80 U/L (45-117)
[2021-12-05 15:25] LABS: LACTIC ACID 2.4 mmol/L (0.4-2.0)
[2021-12-05] MEDS ORDERED: FENTANYL IVPB 500 MCG/100 ML BAG IVPB SCH (15:45)
[2021-12-05] MEDS: FENTANYL NS IVPB 500 MCG/100 ML BAG IVPB SCH (17:00)
[2021-12-05] MEDS: PIPERACILLIN/TAZOB 2.25 GM 2.25 GM in DEXTROSE 5%-WATER - 50 ML IVPB SCH (17:50)
[2021-12-05] MEDS ORDERED: PIPERACILLIN/TAZOB 2.25 GM 2.25 GM in DEXTROSE 5%-WATER - 50 ML IVPB SCH (18:00)
[2021-12-05 19:11] LABS: HEMATOCRIT 33.4 % (35.4-49); HEMOGLOBIN 10.9 GM/dL (11.7-16.9); MCH 31.6 pg (25.7-33.7); MCHC 32.6 g/dl (32.0-35.9); MEAN CELL VOLUME 96.9 fl (80-96); MEAN PLT VOLUME 10.2 fl (7.5-11.1); PLATELET COUNT 140 10^3/uL (134-434); RBC 3.45 M/mm3 (4.00-5.60); RDW 14.3 % (11.9-15.9); WHITE BLOOD COUNT 7.4 K/mm3 (4.0-10.0)
[2021-12-05] MEDS: LATANOPROST 0.005% OPHTH SOLN 2.5ML BOTTLE OU SCH (21:26)
[2021-12-05 23:35] LABS: EPI CELLS 3 /uL (0-25.1); HYALINE CASTS 0 /uL (0-3.1); PH,URINE 5.5 (5.0-8.0); URINE APPEARANCE CLEAR; URINE BACTERIA 15 /uL (0-1359); URINE BILIRUBIN NEGATIVE (NEGATIVE); URINE COLOR YELLOW; URINE GLUCOSE (UA) 1+ (NEGATIVE); URINE KETONE NEGATIVE (NEGATIVE); URINE LEUK ESTERASE NEGATIVE (NEGATIVE); URINE NITRITE NEGATIVE (NEGATIVE); URINE PROTEIN 1+ (NEGATIVE); URINE RBC 6 /uL (0-23.9); URINE UROBILINOGEN 0.2 mg/dL (0.2-1.0); URINE WBC 28 /uL (0-25.8)
[2021-12-06] MEDS: PIPERACILLIN/TAZOB 2.25 GM 2.25 GM in DEXTROSE 5%-WATER - 50 ML IVPB SCH ×2 (02:24→09:16)
[2021-12-06 06:42] LABS: HEMATOCRIT 30.4 % (35.4-49); HEMOGLOBIN 10.2 GM/dL (11.7-16.9); MCH 31.6 pg (25.7-33.7); MCHC 33.4 g/dl (32.0-35.9); MEAN CELL VOLUME 94.7 fl (80-96); MEAN PLT VOLUME 10.5 fl (7.5-11.1); PLATELET COUNT 132 10^3/uL (134-434); RBC 3.21 M/mm3 (4.00-5.60); RDW 14.4 % (11.9-15.9); WHITE BLOOD COUNT 8.6 K/mm3 (4.0-10.0)
[2021-12-06 07:04] LABS: CALCIUM 7.5 mg/dL (8.5-10.1)
[2021-12-06 07:05] LABS: BLOOD UREA NITROGEN 48.4 mg/dL (7-18)
[2021-12-06 07:08] LABS: CREATININE 3.5 mg/dL (0.55-1.3); PHOSPHOROUS 3.9 mg/dL (2.5-4.9)
[2021-12-06] MEDS ORDERED: MIDAZOLAM HCL 5 MG/1 ML Single Dose Vial IVPUSH STA (09:01)
[2021-12-06] MEDS: PANTOPRAZOLE SODIUM 40 MG VIAL IVPUSH SCH (09:21)
[2021-12-06] MEDS: SODIUM ZIRCONIUM CYCLOSILICATE (LOKELMA) 5 GM PACKET NGT SCH (09:23)
[2021-12-06 09:53] LABS: ARTERIAL BLD GAS O2 SATURATION 94.6 % (95-98); ARTERIAL BLOOD GAS BASE EXCESS -6.2 mmol/L (-2-2); ARTERIAL BLOOD GAS pH 7.307 (7.350-7.450)
[2021-12-06 09:55] LABS: ALLENS TEST POSITIVE; VENT MODE A/C; VENT RATE 22
[2021-12-06] MEDS: INSULIN SLIDING SCALE (NOVOLOG) 1 VIAL SQ SCH ×3 (11:40→21:51)
[2021-12-06] MEDS: HEPARIN NA (PORCINE) 5,000 UNITS/ML 1ML VIAL SQ SCH ×2 (13:42→21:58)
[2021-12-06 15:32] LABS: METHADONE, UR NEGATIVE (NEGATIVE); OPIATES, URI NEGATIVE (NEGATIVE); URINE AMPHETAMINES NEGATIVE (NEGATIVE)
[2021-12-06 15:33] LABS: COCAINE, UR NEGATIVE (NEGATIVE); PHENCYCLIDINE,URINE NEGATIVE (NEGATIVE); URINE BARBITURATES NEGATIVE (NEGATIVE); URINE BENZODIAZEPINES POSITIVE (NEGATIVE)
[2021-12-06] MEDS: FENTANYL NS IVPB 500 MCG/100 ML BAG IVPB SCH (16:45)
[2021-12-06] MEDS ORDERED: PIPERACILLIN/TAZOB 2.25 GM 2.25 GM in DEXTROSE 5%-WATER - 50 ML IVPB SCH (18:47)
[2021-12-06] MEDS: LACTATED RINGERS SOLUTION 1,000 ML/1,000 ML INFUS.BAG IV SCH (19:30)
[2021-12-06] MEDS: MIDAZOLAM 100 MG in SODIUM CHLORIDE 100 ML IVPB SCH (21:50)
[2021-12-06] MEDS: LATANOPROST 0.005% OPHTH SOLN 2.5ML BOTTLE OU SCH (21:51)
[2021-12-06] MEDS: INSULIN (LEVEMIR) 100 UNITS/ML UNITS SQ SCH (21:52)
[2021-12-06] MEDS ORDERED: MIDAZOLAM IN 0.9 % SOD.CHLORID 1 MG/1 ML PLAST..BAG ONE (21:57)
[2021-12-07] MEDS ORDERED: ACETAMINOPHEN 650 MG/20.3 ML ORAL SOLUTION (CUPS) PO PRN (00:27)
[2021-12-07] MEDS: PROPOFOL 1,000,000 MCG/100 ML VIAL IVPB SCH (00:30)
[2021-12-07 02:57] LABS: LACTIC ACID 3.3 mmol/L (0.4-2.0)
[2021-12-07] MEDS ORDERED: fentaNYL CITRATE 250 MCG/5 ML VIAL ONE (03:02)
[2021-12-07] MEDS ORDERED: PIPERACILLIN/TAZOB 2.25 GM 2.25 GM in DEXTROSE 5%-WATER - 50 ML IVPB ONE (03:27)
[2021-12-07] MEDS ORDERED: LACTATED RINGERS SOLUTION 1,000 ML/1,000 ML INFUS.BAG IV STA (03:27)
[2021-12-07] MEDS: FENTANYL NS IVPB 500 MCG/100 ML BAG IVPB SCH ×2 (04:00→15:14)
[2021-12-07] MEDS: HEPARIN NA (PORCINE) 5,000 UNITS/ML 1ML VIAL SQ SCH ×3 (06:36→22:27)
[2021-12-07] MEDS: INSULIN SLIDING SCALE (NOVOLOG) 1 VIAL SQ SCH ×4 (06:36→22:30)
[2021-12-07 06:39] LABS: ARTERIAL BLD GAS O2 SATURATION 98.1 % (95-98); ARTERIAL BLOOD GAS BASE EXCESS -2.7 mmol/L (-2-2); ARTERIAL BLOOD GAS pH 7.395 (7.350-7.450)
[2021-12-07 06:49] LABS: ALLENS TEST POSITIVE; VENT MODE A/C; VENT RATE 22
[2021-12-07 07:59] LABS: HEMATOCRIT 31.8 % (35.4-49); HEMOGLOBIN 10.3 GM/dL (11.7-16.9); MCH 31.4 pg (25.7-33.7); MCHC 32.5 g/dl (32.0-35.9); MEAN CELL VOLUME 96.5 fl (80-96); MEAN PLT VOLUME 10.8 fl (7.5-11.1); PLATELET COUNT 131 10^3/uL (134-434); RBC 3.29 M/mm3 (4.00-5.60); RDW 14.8 % (11.9-15.9); WHITE BLOOD COUNT 8.5 K/mm3 (4.0-10.0)
[2021-12-07 08:06] LABS: CALCIUM 7.5 mg/dL (8.5-10.1)
[2021-12-07 08:07] LABS: BLOOD UREA NITROGEN 54.3 mg/dL (7-18); MAGNESIUM 2.1 mg/dL (1.8-2.4)
[2021-12-07] MEDS ORDERED: MIDAZOLAM IN 0.9 % SOD.CHLORID 1 MG/1 ML PLAST..BAG ONE (09:58)
[2021-12-07] MEDS: SODIUM ZIRCONIUM CYCLOSILICATE (LOKELMA) 5 GM PACKET NGT SCH (10:41)
[2021-12-07] MEDS: PANTOPRAZOLE SODIUM 40 MG VIAL IVPUSH SCH (10:41)
[2021-12-07 12:03] LABS: LACTIC ACID 2.2 mmol/L (0.4-2.0)
[2021-12-07] MEDS ORDERED: MIDAZOLAM HCL 2 MG/2 ML SINGLE DOSE VIAL ONE (13:46)
[2021-12-07] MEDS: PIPERACILLIN/TAZOB 2.25 GM 2.25 GM in DEXTROSE 5%-WATER - 50 ML IVPB SCH (17:53)
[2021-12-07] MEDS ORDERED: MIDAZOLAM HCL 2 MG/2 ML SINGLE DOSE VIAL IVPUSH ONE (18:44)
[2021-12-07] MEDS: MIDAZOLAM 100 MG in SODIUM CHLORIDE 100 ML IVPB SCH (18:47)
[2021-12-07] MEDS: LACTATED RINGERS SOLUTION 1,000 ML/1,000 ML INFUS.BAG IV SCH (22:27)
[2021-12-07] MEDS: LATANOPROST 0.005% OPHTH SOLN 2.5ML BOTTLE OU SCH (22:28)
[2021-12-07] MEDS: INSULIN (LEVEMIR) 100 UNITS/ML UNITS SQ SCH (22:40)
[2021-12-08] MEDS ORDERED: ACETAMINOPHEN 1000 MG/100 ML BAG IVPB PRN (01:09)
[2021-12-08] MEDS: PIPERACILLIN/TAZOB 2.25 GM 2.25 GM in DEXTROSE 5%-WATER - 50 ML IVPB SCH ×3 (02:18→18:39)
[2021-12-08] MEDS: MIDAZOLAM IN 0.9 % SOD.CHLORID 100 MG/100 ML PLAST..BAG IVPB SCH (07:18)
[2021-12-08] MEDS: HEPARIN NA (PORCINE) 5,000 UNITS/ML 1ML VIAL SQ SCH ×3 (07:18→21:10)
[2021-12-08] MEDS: INSULIN SLIDING SCALE (NOVOLOG) 1 VIAL SQ SCH ×4 (07:19→21:11)
[2021-12-08 08:04] LABS: HEMATOCRIT 32.2 % (35.4-49); HEMOGLOBIN 10.5 GM/dL (11.7-16.9); MCH 31.5 pg (25.7-33.7); MCHC 32.7 g/dl (32.0-35.9); MEAN CELL VOLUME 96.3 fl (80-96); MEAN PLT VOLUME 10.6 fl (7.5-11.1); PLATELET COUNT 152 10^3/uL (134-434); RBC 3.34 M/mm3 (4.00-5.60); RDW 14.4 % (11.9-15.9); WHITE BLOOD COUNT 8.9 K/mm3 (4.0-10.0)
[2021-12-08 08:35] LABS: BLOOD UREA NITROGEN 62.7 mg/dL (7-18); CALCIUM 7.7 mg/dL (8.5-10.1)
[2021-12-08 08:38] LABS: MAGNESIUM 2.1 mg/dL (1.8-2.4)
[2021-12-08 08:39] LABS: CREATININE 6.1 mg/dL (0.55-1.3)
[2021-12-08 08:40] LABS: BILIRUBIN,TOTAL 0.5 mg/dL (0.2-1)
[2021-12-08 08:45] LABS: ALBUMIN 2.3 g/dl (3.4-5.0); TOT PROT 5.1 g/dl (6.4-8.2)
[2021-12-08] MEDS ORDERED: SODIUM CHLORIDE 0.9% 500 ML INFUS.BAG IV ONE (10:11)
[2021-12-08] MEDS: PROPOFOL 1,000,000 MCG/100 ML VIAL IVPB SCH (10:47)
[2021-12-08] MEDS: SODIUM ZIRCONIUM CYCLOSILICATE (LOKELMA) 5 GM PACKET NGT SCH (10:48)
[2021-12-08] MEDS: PANTOPRAZOLE SODIUM 40 MG VIAL IVPUSH SCH (10:48)
[2021-12-08] MEDS: DEXTROSE 5%-LACTATED RINGERS 1,000 ML IV SCH (13:15)
[2021-12-08] MEDS: INSULIN (LEVEMIR) 100 UNITS/ML UNITS SQ SCH (21:11)
[2021-12-08] MEDS: LATANOPROST 0.005% OPHTH SOLN 2.5ML BOTTLE OU SCH (21:14)
[2021-12-08] MEDS: NOREPINEPHRINE D5W PREMIX 16,000 MCG/500 ML BAG IVPB SCH (23:31)
[2021-12-08] MEDS: FENTANYL NS IVPB 500 MCG/100 ML BAG IVPB SCH (23:31)
[2021-12-09] MEDS: MIDAZOLAM IN 0.9 % SOD.CHLORID 100 MG/100 ML PLAST..BAG IVPB SCH (01:25)
[2021-12-09] MEDS: PIPERACILLIN/TAZOB 2.25 GM 2.25 GM in DEXTROSE 5%-WATER - 50 ML IVPB SCH ×3 (01:26→17:03)
[2021-12-09] MEDS: DEXTROSE 5%-LACTATED RINGERS 1,000 ML IV SCH ×3 (03:00→16:44)
[2021-12-09] MEDS: INSULIN SLIDING SCALE (NOVOLOG) 1 VIAL SQ SCH ×4 (06:10→21:11)
[2021-12-09] MEDS: HEPARIN NA (PORCINE) 5,000 UNITS/ML 1ML VIAL SQ SCH ×3 (06:10→21:12)
[2021-12-09 07:47] LABS: HEMATOCRIT 31.5 % (35.4-49); HEMOGLOBIN 10.1 GM/dL (11.7-16.9); MCH 31.3 pg (25.7-33.7); MCHC 32.2 g/dl (32.0-35.9); MEAN CELL VOLUME 97.3 fl (80-96); MEAN PLT VOLUME 10.3 fl (7.5-11.1); PLATELET COUNT 154 10^3/uL (134-434); RBC 3.24 M/mm3 (4.00-5.60); RDW 14.9 % (11.9-15.9); WHITE BLOOD COUNT 9.6 K/mm3 (4.0-10.0)
[2021-12-09 08:18] LABS: ALBUMIN 2.1 g/dl (3.4-5.0); CALCIUM 7.4 mg/dL (8.5-10.1); MAGNESIUM 2.3 mg/dL (1.8-2.4)
[2021-12-09 08:19] LABS: BLOOD UREA NITROGEN 71.5 mg/dL (7-18)
[2021-12-09 08:21] LABS: PHOSPHOROUS 7.9 mg/dL (2.5-4.9)
[2021-12-09 08:23] LABS: BILIRUBIN,TOTAL 0.5 mg/dL (0.2-1); TOT PROT 5.1 g/dl (6.4-8.2)
[2021-12-09] MEDS: SODIUM ZIRCONIUM CYCLOSILICATE (LOKELMA) 5 GM PACKET NGT SCH (10:07)
[2021-12-09] MEDS: PANTOPRAZOLE SODIUM 40 MG VIAL IVPUSH SCH (10:08)
[2021-12-09] MEDS: NOREPINEPHRINE D5W PREMIX 16,000 MCG/500 ML BAG IVPB SCH ×2 (10:11→11:45)
[2021-12-09] MEDS: ACETAMINOPHEN 1000 MG/100 ML BAG IVPB PRN (15:24)
[2021-12-09] MEDS: FENTANYL NS IVPB 500 MCG/100 ML BAG IVPB SCH (16:30)
[2021-12-09] MEDS: INSULIN (LEVEMIR) 100 UNITS/ML UNITS SQ SCH (21:12)
[2021-12-09] MEDS: SODIUM ZIRCONIUM CYCLOSILICATE (LOKELMA) 5 GM PACKET PO SCH (21:12)
[2021-12-09] MEDS: LATANOPROST 0.005% OPHTH SOLN 2.5ML BOTTLE OU SCH (21:12)
[2021-12-10] MEDS: PIPERACILLIN/TAZOB 2.25 GM 2.25 GM in DEXTROSE 5%-WATER - 50 ML IVPB SCH ×3 (02:47→18:09)
[2021-12-10] MEDS: MIDAZOLAM IN 0.9 % SOD.CHLORID 100 MG/100 ML PLAST..BAG IVPB SCH ×2 (02:49→19:48)
[2021-12-10] MEDS: INSULIN SLIDING SCALE (NOVOLOG) 1 VIAL SQ SCH ×4 (06:33→21:21)
[2021-12-10] MEDS: ACETAMINOPHEN 1000 MG/100 ML BAG IVPB PRN (06:48)
[2021-12-10] MEDS: HEPARIN NA (PORCINE) 5,000 UNITS/ML 1ML VIAL SQ SCH ×3 (07:12→21:15)
[2021-12-10 07:45] LABS: HEMATOCRIT 29.9 % (35.4-49); HEMOGLOBIN 9.7 GM/dL (11.7-16.9); MCH 31.3 pg (25.7-33.7); MCHC 32.5 g/dl (32.0-35.9); MEAN CELL VOLUME 96.5 fl (80-96); MEAN PLT VOLUME 9.6 fl (7.5-11.1); PLATELET COUNT 158 10^3/uL (134-434); RDW 14.6 % (11.9-15.9); WHITE BLOOD COUNT 11.1 K/mm3 (4.0-10.0)
[2021-12-10 08:08] LABS: CHLORIDE 106 mmol/L (98-107); SODIUM 137 mmol/L (136-145)
[2021-12-10 08:10] LABS: ANION GAP 10 MMOL/L (8-16); CALCIUM 7.4 mg/dL (8.5-10.1); CO2 21 mmol/L (21-32); GLUCOSE,RANDOM 259 mg/dL (74-106); MAGNESIUM 2.2 mg/dL (1.8-2.4)
[2021-12-10 08:11] LABS: BLOOD UREA NITROGEN 80.9 mg/dL (7-18)
[2021-12-10 08:13] LABS: PHOSPHOROUS 7.6 mg/dL (2.5-4.9); SGPT/ALT 29 U/L (13-61)
[2021-12-10 08:14] LABS: SGOT/AST 63 U/L (15-37)
[2021-12-10 08:15] LABS: BILIRUBIN,TOTAL 0.4 mg/dL (0.2-1)
[2021-12-10 08:16] LABS: ALK PHOS 87 U/L (45-117)
[2021-12-10 08:18] LABS: CREATININE 7.6 mg/dL (0.55-1.3)
[2021-12-10] MEDS: PANTOPRAZOLE SODIUM 40 MG VIAL IVPUSH SCH (09:39)
[2021-12-10] MEDS ORDERED: SODIUM ZIRCONIUM CYCLOSILICATE (LOKELMA) 5 GM PACKET PO SCH (10:00)
[2021-12-10] MEDS ORDERED: SODIUM POLYSTYRENE SULFONATE 15 GM/60 ML BOTTLE PO ONE ×2 (10:23→18:57)
[2021-12-10] MEDS ORDERED: FUROSEMIDE 40 MG/4 ML INJECTABLE VIAL IVPUSH ONE (15:05)
[2021-12-10] MEDS ORDERED: SODIUM CHLORIDE 0.45% 1,000 ML IV SCH (16:00)
[2021-12-10] MEDS: SODIUM ZIRCONIUM CYCLOSILICATE (LOKELMA) 5 GM PACKET PO SCH (16:39)
[2021-12-10] MEDS: NOREPINEPHRINE D5W PREMIX 16,000 MCG/500 ML BAG IVPB SCH (16:42)
[2021-12-10] MEDS: FENTANYL NS IVPB 500 MCG/100 ML BAG IVPB SCH (16:43)
[2021-12-10 18:01] LABS: CHLORIDE 104 mmol/L (98-107); SODIUM 137 mmol/L (136-145)
[2021-12-10 18:02] LABS: CALCIUM 7.6 mg/dL (8.5-10.1)
[2021-12-10 18:03] LABS: ANION GAP 13 MMOL/L (8-16); BLOOD UREA NITROGEN 77.1 mg/dL (7-18); CO2 19 mmol/L (21-32); GLUCOSE,RANDOM 272 mg/dL (74-106)
[2021-12-10 18:07] LABS: CREATININE 7.8 mg/dL (0.55-1.3)
[2021-12-10 20:20] LABS: ARTERIAL BLD GAS O2 SATURATION 95.4 % (95-98); ARTERIAL BLOOD GAS BASE EXCESS -11.4 mmol/L (-2-2)
[2021-12-10 20:21] LABS: ALLENS TEST POSITIVE
[2021-12-10 20:22] LABS: VENT MODE A/C; VENT RATE 20
[2021-12-10 20:23] LABS: ARTERIAL BLOOD GAS pH 7.169 (7.350-7.450)
[2021-12-10] MEDS: SODIUM CHLORIDE 0.45% 1,000 ML IV SCH (21:10)
[2021-12-10] MEDS: LATANOPROST 0.005% OPHTH SOLN 2.5ML BOTTLE OU SCH (21:10)
[2021-12-10] MEDS: INSULIN (LEVEMIR) 100 UNITS/ML UNITS SQ SCH (21:22)
[2021-12-11] MEDS: PIPERACILLIN/TAZOB 2.25 GM 2.25 GM in DEXTROSE 5%-WATER - 50 ML IVPB SCH ×3 (01:01→17:46)
[2021-12-11 01:40] LABS: ARTERIAL BLOOD GAS BASE EXCESS -9.9 mmol/L (-2-2); ARTERIAL BLOOD GAS PO2 69.6 mmHg (80-100); ARTERIAL BLOOD GAS pH 7.237 (7.350-7.450)
[2021-12-11 01:44] LABS: ALLENS TEST POSITIVE; VENT MODE A/C; VENT RATE 20
[2021-12-11] MEDS: INSULIN SLIDING SCALE (NOVOLOG) 1 VIAL SQ SCH ×4 (06:27→21:40)
[2021-12-11] MEDS: HEPARIN NA (PORCINE) 5,000 UNITS/ML 1ML VIAL SQ SCH ×3 (06:32→21:32)
[2021-12-11] MEDS ORDERED: SODIUM CHLORIDE 250 ML IV PRN ×2 (06:40→14:12)
[2021-12-11 06:52] LABS: BASO % 0.3 % (0-2.0); EOS % 1.9 % (0-4.5); HEMOGLOBIN 10.1 GM/dL (11.7-16.9); LYMPH % 4.2 % (8-40); MCH 30.7 pg (25.7-33.7); MCHC 31.6 g/dl (32.0-35.9); MEAN CELL VOLUME 97.2 fl (80-96); MEAN PLT VOLUME 9.4 fl (7.5-11.1); MONO % 6.2 % (3.8-10.2); NEUT % 87.4 % (42.8-82.8); PLATELET COUNT 199 10^3/uL (134-434); RBC 3.29 M/mm3 (4.00-5.60); RDW 14.9 % (11.9-15.9); WHITE BLOOD COUNT 15.2 K/mm3 (4.0-10.0)
[2021-12-11] MEDS: FENTANYL NS IVPB 500 MCG/100 ML BAG IVPB SCH ×3 (07:00→17:45)
[2021-12-11 07:16] LABS: CHLORIDE 108 mmol/L (98-107); SODIUM 137 mmol/L (136-145)
[2021-12-11 07:21] LABS: ALBUMIN 1.9 g/dl (3.4-5.0); ANION GAP 10 MMOL/L (8-16); BLOOD UREA NITROGEN 90.6 mg/dL (7-18); CALCIUM 7.4 mg/dL (8.5-10.1); CO2 20 mmol/L (21-32); GLUCOSE,RANDOM 90 mg/dL (74-106); MAGNESIUM 2.2 mg/dL (1.8-2.4)
[2021-12-11 07:23] LABS: SGPT/ALT 32 U/L (13-61)
[2021-12-11 07:24] LABS: PHOSPHOROUS 8.8 mg/dL (2.5-4.9); SGOT/AST 51 U/L (15-37)
[2021-12-11 07:25] LABS: BILIRUBIN,TOTAL 0.4 mg/dL (0.2-1); TOT PROT 5.4 g/dl (6.4-8.2)
[2021-12-11 07:26] LABS: ALK PHOS 88 U/L (45-117)
[2021-12-11] MEDS: PANTOPRAZOLE SODIUM 40 MG VIAL IVPUSH SCH (09:55)
[2021-12-11] MEDS: MIDAZOLAM IN 0.9 % SOD.CHLORID 100 MG/100 ML PLAST..BAG IVPB SCH (13:21)
[2021-12-11 16:07] LABS: CALCIUM 7.4 mg/dL (8.5-10.1)
[2021-12-11 16:08] LABS: BLOOD UREA NITROGEN 73.5 mg/dL (7-18)
[2021-12-11 16:11] LABS: CREATININE 6.7 mg/dL (0.55-1.3)
[2021-12-11] MEDS: SODIUM CHLORIDE 0.45% 1,000 ML IV SCH ×2 (17:50→21:32)
[2021-12-11] MEDS: NOREPINEPHRINE D5W PREMIX 16,000 MCG/500 ML BAG IVPB SCH (18:43)
[2021-12-11] MEDS: LATANOPROST 0.005% OPHTH SOLN 2.5ML BOTTLE OU SCH (21:32)
[2021-12-11] MEDS: INSULIN (LEVEMIR) 100 UNITS/ML UNITS SQ SCH (21:47)
[2021-12-12] MEDS: PIPERACILLIN/TAZOB 2.25 GM 2.25 GM in DEXTROSE 5%-WATER - 50 ML IVPB SCH ×3 (01:56→18:50)
[2021-12-12] MEDS: MIDAZOLAM IN 0.9 % SOD.CHLORID 100 MG/100 ML PLAST..BAG IVPB SCH ×2 (05:53→21:19)
[2021-12-12] MEDS: HEPARIN NA (PORCINE) 5,000 UNITS/ML 1ML VIAL SQ SCH ×3 (05:55→21:19)
[2021-12-12] MEDS: INSULIN SLIDING SCALE (NOVOLOG) 1 VIAL SQ SCH ×4 (06:14→21:44)
[2021-12-12 07:11] LABS: BASO % 0.2 % (0-2.0); EOS % 3.3 % (0-4.5); HEMATOCRIT 27.4 % (35.4-49); HEMOGLOBIN 9.1 GM/dL (11.7-16.9); LYMPH % 4.6 % (8-40); MCH 32.1 pg (25.7-33.7); MCHC 33.1 g/dl (32.0-35.9); MEAN CELL VOLUME 96.8 fl (80-96); MEAN PLT VOLUME 8.7 fl (7.5-11.1); MONO % 8.7 % (3.8-10.2); NEUT % 83.2 % (42.8-82.8); PLATELET COUNT 159 10^3/uL (134-434); RBC 2.83 M/mm3 (4.00-5.60); RDW 14.8 % (11.9-15.9); WHITE BLOOD COUNT 12.3 K/mm3 (4.0-10.0)
[2021-12-12 07:35] LABS: ALBUMIN 1.6 g/dl (3.4-5.0); BLOOD UREA NITROGEN 74.7 mg/dL (7-18)
[2021-12-12 07:38] LABS: BILIRUBIN,TOTAL 0.4 mg/dL (0.2-1); PHOSPHOROUS 8.7 mg/dL (2.5-4.9)
[2021-12-12 07:39] LABS: TOT PROT 4.8 g/dl (6.4-8.2)
[2021-12-12] MEDS: PANTOPRAZOLE SODIUM 40 MG VIAL IVPUSH SCH (09:34)
[2021-12-12] MEDS: FENTANYL NS IVPB 500 MCG/100 ML BAG IVPB SCH ×3 (11:00→22:27)
[2021-12-12] MEDS: NOREPINEPHRINE D5W PREMIX 16,000 MCG/500 ML BAG IVPB SCH ×2 (11:45→16:51)
[2021-12-12] MEDS: SODIUM CHLORIDE 0.45% 1,000 ML IV SCH ×2 (16:55→22:27)
[2021-12-12] MEDS: LATANOPROST 0.005% OPHTH SOLN 2.5ML BOTTLE OU SCH (21:19)
[2021-12-12] MEDS: INSULIN (LEVEMIR) 100 UNITS/ML UNITS SQ SCH (21:44)
[2021-12-13] MEDS: MIDAZOLAM IN 0.9 % SOD.CHLORID 100 MG/100 ML PLAST..BAG IVPB SCH ×2 (01:18→02:26)
[2021-12-13] MEDS: PIPERACILLIN/TAZOB 2.25 GM 2.25 GM in DEXTROSE 5%-WATER - 50 ML IVPB SCH ×3 (01:24→18:20)
[2021-12-13] MEDS: INSULIN SLIDING SCALE (NOVOLOG) 1 VIAL SQ SCH ×4 (06:11→22:36)
[2021-12-13] MEDS: HEPARIN NA (PORCINE) 5,000 UNITS/ML 1ML VIAL SQ SCH ×3 (06:14→22:11)
[2021-12-13 07:05] LABS: HEMOGLOBIN 9.3 GM/dL (11.7-16.9); MCH 31.4 pg (25.7-33.7); MEAN CELL VOLUME 98.1 fl (80-96); MEAN PLT VOLUME 8.5 fl (7.5-11.1); PLATELET COUNT 161 10^3/uL (134-434); RBC 2.96 M/mm3 (4.00-5.60); RDW 15.2 % (11.9-15.9); WHITE BLOOD COUNT 18.5 K/mm3 (4.0-10.0)
[2021-12-13 07:20] LABS: BLOOD UREA NITROGEN 66.4 mg/dL (7-18); CALCIUM 7.3 mg/dL (8.5-10.1); MAGNESIUM 2.2 mg/dL (1.8-2.4)
[2021-12-13 07:23] LABS: CREATININE 5.8 mg/dL (0.55-1.3); PHOSPHOROUS 8.2 mg/dL (2.5-4.9)
[2021-12-13] MEDS: PANTOPRAZOLE SODIUM 40 MG VIAL IVPUSH SCH (09:21)
[2021-12-13] MEDS: FENTANYL NS IVPB 500 MCG/100 ML BAG IVPB SCH ×3 (09:22→16:42)
[2021-12-13] MEDS: NOREPINEPHRINE D5W PREMIX 16,000 MCG/500 ML BAG IVPB SCH ×2 (13:06→16:44)
[2021-12-13] MEDS ORDERED: SODIUM CHLORIDE 250 ML IV PRN (13:26)
[2021-12-13] MEDS ORDERED: VANCOMYCIN 1 GM/200 ML PREMIX BAG IVPB ONE (18:02)
[2021-12-13] MEDS: HYDROCORTISONE SOD SUCCINATE 100 MG/2 ML VIAL IVPUSH SCH (18:14)
[2021-12-13 18:44] LABS: EPI CELLS >36 /uL (0-25.1); HYALINE CASTS 6 /uL (0-3.1); URINE APPEARANCE TURBID; URINE BILIRUBIN NEGATIVE (NEGATIVE); URINE COLOR YELLOW; URINE GLUCOSE (UA) NEGATIVE (NEGATIVE); URINE KETONE TRACE (NEGATIVE); URINE LEUK ESTERASE 1+ (NEGATIVE); URINE NITRITE NEGATIVE (NEGATIVE); URINE PROTEIN 1+ (NEGATIVE); URINE WBC 253 /uL (0-25.8)
[2021-12-13 20:22] LABS: URINE BACTERIA 92 /uL (0-1359); URINE RBC 82 /uL (0-23.9)
[2021-12-13 20:24] LABS: URINE CRYSTALS MODERATE /hpf
[2021-12-13] MEDS: SODIUM CHLORIDE 0.45% 1,000 ML IV SCH (22:11)
[2021-12-13] MEDS: LATANOPROST 0.005% OPHTH SOLN 2.5ML BOTTLE OU SCH (22:30)
[2021-12-13] MEDS: INSULIN (LEVEMIR) 100 UNITS/ML UNITS SQ SCH (22:36)
[2021-12-14] MEDS: MIDAZOLAM IN 0.9 % SOD.CHLORID 100 MG/100 ML PLAST..BAG IVPB SCH ×3 (02:24→21:39)
[2021-12-14] MEDS: PIPERACILLIN/TAZOB 2.25 GM 2.25 GM in DEXTROSE 5%-WATER - 50 ML IVPB SCH ×3 (02:24→17:22)
[2021-12-14] MEDS: HYDROCORTISONE SOD SUCCINATE 100 MG/2 ML VIAL IVPUSH SCH ×3 (02:24→17:22)
[2021-12-14] MEDS: HEPARIN NA (PORCINE) 5,000 UNITS/ML 1ML VIAL SQ SCH ×3 (06:03→21:31)
[2021-12-14] MEDS: INSULIN SLIDING SCALE (NOVOLOG) 1 VIAL SQ SCH ×4 (06:08→21:38)
[2021-12-14 06:25] LABS: ARTERIAL BLD GAS O2 SATURATION 85.9 % (95-98); ARTERIAL BLOOD GAS PO2 74.3 mmHg (80-100)
[2021-12-14 06:37] LABS: VENT MODE A/C
[2021-12-14 06:38] LABS: VENT RATE 14
[2021-12-14 06:39] LABS: ARTERIAL BLOOD GAS pH 7.022 (7.350-7.450)
[2021-12-14 07:38] LABS: HEMATOCRIT 29.8 % (35.4-49); HEMOGLOBIN 9.5 GM/dL (11.7-16.9); MCH 31.7 pg (25.7-33.7); MCHC 31.8 g/dl (32.0-35.9); MEAN CELL VOLUME 99.5 fl (80-96); MEAN PLT VOLUME 8.5 fl (7.5-11.1); PLATELET COUNT 182 10^3/uL (134-434); RDW 15.5 % (11.9-15.9); WHITE BLOOD COUNT 24.1 K/mm3 (4.0-10.0)
[2021-12-14] MEDS: FENTANYL NS IVPB 500 MCG/100 ML BAG IVPB SCH ×3 (07:40→17:21)
[2021-12-14 07:52] LABS: CHLORIDE 96 mmol/L (98-107); SODIUM 131 mmol/L (136-145)
[2021-12-14 07:54] LABS: ALBUMIN 1.6 g/dl (3.4-5.0); BLOOD UREA NITROGEN 80.2 mg/dL (7-18); CALCIUM 7.4 mg/dL (8.5-10.1); CO2 25 mmol/L (21-32); GLUCOSE,RANDOM 240 mg/dL (74-106); MAGNESIUM 2.5 mg/dL (1.8-2.4)
[2021-12-14 07:58] LABS: CREATININE 6.4 mg/dL (0.55-1.3); SGOT/AST 62 U/L (15-37); SGPT/ALT 27 U/L (13-61)
[2021-12-14 07:59] LABS: BILIRUBIN,TOTAL 0.3 mg/dL (0.2-1)
[2021-12-14 08:00] LABS: TOT PROT 5.4 g/dl (6.4-8.2)
[2021-12-14 08:26] LABS: ALK PHOS 169 U/L (45-117); ANION GAP 9 MMOL/L (8-16); PHOSPHOROUS 10.2 mg/dL (2.5-4.9)
[2021-12-14] MEDS ORDERED: SODIUM POLYSTYRENE SULFONATE 15 GM/60 ML BOTTLE PO ONE (08:45)
[2021-12-14] MEDS: PANTOPRAZOLE SODIUM 40 MG VIAL IVPUSH SCH (09:30)
[2021-12-14 10:51] LABS: ANISOCYTOSIS 1+; MACROCYTOSIS 1+; TEAR DROP CELLS 1+
[2021-12-14 12:41] LABS: ARTERIAL BLOOD GAS BASE EXCESS 0.7 mmol/L (-2-2); ARTERIAL BLOOD GAS PO2 104.1 mmHg (80-100); ARTERIAL BLOOD GAS pH 7.288 (7.350-7.450)
[2021-12-14 12:42] LABS: ALLENS TEST POSITIVE; VENT RATE 26
[2021-12-14] MEDS: NOREPINEPHRINE D5W PREMIX 16,000 MCG/500 ML BAG IVPB SCH (12:45)
[2021-12-14 15:17] VITALS: BMI 32.6
[2021-12-14] MEDS: SODIUM CHLORIDE 0.45% 1,000 ML IV SCH (21:30)
[2021-12-14] MEDS: LATANOPROST 0.005% OPHTH SOLN 2.5ML BOTTLE OU SCH (21:31)
[2021-12-14] MEDS: INSULIN (LEVEMIR) 100 UNITS/ML UNITS SQ SCH (21:38)
[2021-12-15] MEDS: HYDROCORTISONE SOD SUCCINATE 100 MG/2 ML VIAL IVPUSH SCH ×3 (02:16→16:53)
[2021-12-15] MEDS: PIPERACILLIN/TAZOB 2.25 GM 2.25 GM in DEXTROSE 5%-WATER - 50 ML IVPB SCH ×3 (02:16→17:43)
[2021-12-15] MEDS: MIDAZOLAM IN 0.9 % SOD.CHLORID 100 MG/100 ML PLAST..BAG IVPB SCH (06:15)
[2021-12-15] MEDS: HEPARIN NA (PORCINE) 5,000 UNITS/ML 1ML VIAL SQ SCH ×3 (06:16→21:40)
[2021-12-15 06:34] LABS: ARTERIAL BLD GAS O2 SATURATION 91.6 % (95-98); ARTERIAL BLOOD GAS BASE EXCESS -2.1 mmol/L (-2-2); ARTERIAL BLOOD GAS PO2 69.7 mmHg (80-100); ARTERIAL BLOOD GAS pH 7.282 (7.350-7.450)
[2021-12-15 06:38] LABS: VENT MODE A/C; VENT RATE 16
[2021-12-15] MEDS: INSULIN SLIDING SCALE (NOVOLOG) 1 VIAL SQ SCH ×4 (07:42→21:46)
[2021-12-15] MEDS: PANTOPRAZOLE SODIUM 40 MG VIAL IVPUSH SCH (10:18)
[2021-12-15 10:38] LABS: HEMATOCRIT 26.2 % (35.4-49); HEMOGLOBIN 8.3 GM/dL (11.7-16.9); MCH 30.7 pg (25.7-33.7); MCHC 31.7 g/dl (32.0-35.9); MEAN CELL VOLUME 96.6 fl (80-96); MEAN PLT VOLUME 8.7 fl (7.5-11.1); PLATELET COUNT 213 10^3/uL (134-434); RBC 2.72 M/mm3 (4.00-5.60); RDW 15.1 % (11.9-15.9); WHITE BLOOD COUNT 14.8 K/mm3 (4.0-10.0)
[2021-12-15 11:02] LABS: ALBUMIN 1.4 g/dl (3.4-5.0); BLOOD UREA NITROGEN 73.9 mg/dL (7-18); CALCIUM 7.3 mg/dL (8.5-10.1); MAGNESIUM 2.3 mg/dL (1.8-2.4)
[2021-12-15 11:06] LABS: CREATININE 5.1 mg/dL (0.55-1.3); PHOSPHOROUS 5.9 mg/dL (2.5-4.9)
[2021-12-15 11:08] LABS: BILIRUBIN,TOTAL 0.2 mg/dL (0.2-1); TOT PROT 4.9 g/dl (6.4-8.2)
[2021-12-15] MEDS ORDERED: SODIUM CHLORIDE 250 ML IV PRN (11:39)
[2021-12-15] MEDS: FENTANYL NS IVPB 500 MCG/100 ML BAG IVPB SCH ×3 (12:21→23:48)
[2021-12-15] MEDS: ALBUMIN HUMAN 25% 12.5 GM/50 ML VIAL IV SCH ×4 (12:30→14:00)
[2021-12-15] MEDS ORDERED: VANCOMYCIN 1 GM/200 ML PREMIX BAG IVPB SCH (16:15)
[2021-12-15] MEDS: NOREPINEPHRINE D5W PREMIX 16,000 MCG/500 ML BAG IVPB SCH (19:31)
[2021-12-15] MEDS ORDERED: ROCURONIUM BROMIDE 50 MG/5 ML VIAL IVPUSH ONE ×2 (20:32→22:39)
[2021-12-15] MEDS ORDERED: ACETAMINOPHEN 1000 MG/100 ML BAG IVPB ONE (20:52)
[2021-12-15] MEDS ORDERED: LABETALOL HCL 5 MG/1 ML (100MG/20 ML VIAL) IVPUSH ONE (20:59)
[2021-12-15] MEDS ORDERED: LABETALOL HCL 5 MG/1 ML (100MG/20 ML VIAL) ONE (21:03)
[2021-12-15] MEDS: INSULIN (LEVEMIR) 100 UNITS/ML UNITS SQ SCH (21:42)
[2021-12-15] MEDS: LATANOPROST 0.005% OPHTH SOLN 2.5ML BOTTLE OU SCH (22:23)
[2021-12-15 22:27] LABS: ARTERIAL BLD GAS O2 SATURATION 92.2 % (95-98); ARTERIAL BLOOD GAS BASE EXCESS -0.8 mmol/L (-2-2); ARTERIAL BLOOD GAS PO2 69.8 mmHg (80-100); ARTERIAL BLOOD GAS pH 7.306 (7.350-7.450)
[2021-12-15 22:28] LABS: VENT MODE A/C; VENT RATE 20
[2021-12-16] MEDS: HYDROCORTISONE SOD SUCCINATE 100 MG/2 ML VIAL IVPUSH SCH ×3 (00:57→17:29)
[2021-12-16] MEDS: MIDAZOLAM IN 0.9 % SOD.CHLORID 100 MG/100 ML PLAST..BAG IVPB SCH (00:57)
[2021-12-16] MEDS: PIPERACILLIN/TAZOB 2.25 GM 2.25 GM in DEXTROSE 5%-WATER - 50 ML IVPB SCH ×3 (01:01→17:29)
[2021-12-16] MEDS: FENTANYL NS IVPB 500 MCG/100 ML BAG IVPB SCH ×2 (04:50→21:34)
[2021-12-16 06:26] LABS: ARTERIAL BLD GAS O2 SATURATION 94.5 % (95-98); ARTERIAL BLOOD GAS BASE EXCESS -3.3 mmol/L (-2-2); ARTERIAL BLOOD GAS PO2 77.7 mmHg (80-100); ARTERIAL BLOOD GAS pH 7.323 (7.350-7.450)
[2021-12-16 06:27] LABS: VENT MODE V-A/C; VENT RATE 25
[2021-12-16] MEDS: HEPARIN NA (PORCINE) 5,000 UNITS/ML 1ML VIAL SQ SCH ×3 (06:37→21:35)
[2021-12-16] MEDS: INSULIN SLIDING SCALE (NOVOLOG) 1 VIAL SQ SCH ×4 (06:37→21:44)
[2021-12-16 07:42] LABS: HEMOGLOBIN 8.2 GM/dL (11.7-16.9); MCH 30.4 pg (25.7-33.7); MCHC 31.7 g/dl (32.0-35.9); MEAN PLT VOLUME 8.6 fl (7.5-11.1); PLATELET COUNT 248 10^3/uL (134-434); RBC 2.71 M/mm3 (4.00-5.60); RDW 14.6 % (11.9-15.9); WHITE BLOOD COUNT 12.9 K/mm3 (4.0-10.0)
[2021-12-16 07:51] LABS: CALCIUM 7.5 mg/dL (8.5-10.1)
[2021-12-16 07:52] LABS: ALBUMIN 1.5 g/dl (3.4-5.0); BLOOD UREA NITROGEN 67.9 mg/dL (7-18); MAGNESIUM 2.4 mg/dL (1.8-2.4)
[2021-12-16 07:55] LABS: CREATININE 4.4 mg/dL (0.55-1.3); PHOSPHOROUS 5.7 mg/dL (2.5-4.9)
[2021-12-16 07:56] LABS: BILIRUBIN,TOTAL 0.4 mg/dL (0.2-1)
[2021-12-16] MEDS ORDERED: FUROSEMIDE 40 MG/4 ML INJECTABLE VIAL IVPUSH ONE (08:40)
[2021-12-16] MEDS: PANTOPRAZOLE SODIUM 40 MG VIAL IVPUSH SCH (09:19)
[2021-12-16] MEDS ORDERED: VANCOMYCIN 1 GM/200 ML PREMIX BAG IVPB SCH (10:00)
[2021-12-16] MEDS ORDERED: FUROSEMIDE 40 MG/4 ML INJECTABLE VIAL ONE (13:23)
[2021-12-16 20:11] LABS: EPI CELLS 33 /uL (0-25.1); HYALINE CASTS 4 /uL (0-3.1); URINE APPEARANCE CLOUDY; URINE BACTERIA 17 /uL (0-1359); URINE BILIRUBIN NEGATIVE (NEGATIVE); URINE COLOR YELLOW; URINE GLUCOSE (UA) NEGATIVE (NEGATIVE); URINE KETONE TRACE (NEGATIVE); URINE LEUK ESTERASE 1+ (NEGATIVE); URINE NITRITE NEGATIVE (NEGATIVE); URINE PROTEIN 1+ (NEGATIVE); URINE UROBILINOGEN 0.2 mg/dL (0.2-1.0); URINE WBC 117 /uL (0-25.8)
[2021-12-16 21:26] LABS: URINE RBC 78 /uL (0-23.9)
[2021-12-16] MEDS: NOREPINEPHRINE D5W PREMIX 16,000 MCG/500 ML BAG IVPB SCH (21:33)
[2021-12-16] MEDS: INSULIN (LEVEMIR) 100 UNITS/ML UNITS SQ SCH (21:36)
[2021-12-16] MEDS: LATANOPROST 0.005% OPHTH SOLN 2.5ML BOTTLE OU SCH (21:36)
[2021-12-17] MEDS: MIDAZOLAM IN 0.9 % SOD.CHLORID 100 MG/100 ML PLAST..BAG IVPB SCH (01:30)
[2021-12-17] MEDS: PIPERACILLIN/TAZOB 2.25 GM 2.25 GM in DEXTROSE 5%-WATER - 50 ML IVPB SCH ×3 (02:19→17:45)
[2021-12-17] MEDS: HYDROCORTISONE SOD SUCCINATE 100 MG/2 ML VIAL IVPUSH SCH ×4 (02:19→21:23)
[2021-12-17] MEDS: HEPARIN NA (PORCINE) 5,000 UNITS/ML 1ML VIAL SQ SCH ×3 (06:19→21:42)
[2021-12-17] MEDS: INSULIN SLIDING SCALE (NOVOLOG) 1 VIAL SQ SCH ×4 (06:40→21:36)
[2021-12-17 07:56] LABS: HEMATOCRIT 24.2 % (35.4-49); HEMOGLOBIN 7.8 GM/dL (11.7-16.9); MCH 31.2 pg (25.7-33.7); MCHC 32.1 g/dl (32.0-35.9); MEAN CELL VOLUME 97.3 fl (80-96); PLATELET COUNT 276 10^3/uL (134-434); RBC 2.49 M/mm3 (4.00-5.60); RDW 14.9 % (11.9-15.9); WHITE BLOOD COUNT 10.6 K/mm3 (4.0-10.0)
[2021-12-17 08:11] LABS: CHLORIDE 95 mmol/L (98-107); SODIUM 133 mmol/L (136-145)
[2021-12-17 08:21] LABS: CALCIUM 7.3 mg/dL (8.5-10.1); GLUCOSE,RANDOM 370 mg/dL (74-106)
[2021-12-17 08:22] LABS: ALBUMIN 1.4 g/dl (3.4-5.0); ANION GAP 13 MMOL/L (8-16); CO2 25 mmol/L (21-32); MAGNESIUM 2.5 mg/dL (1.8-2.4)
[2021-12-17 08:25] LABS: CREATININE 5.4 mg/dL (0.55-1.3); PHOSPHOROUS 8.4 mg/dL (2.5-4.9); SGOT/AST 28 U/L (15-37); SGPT/ALT 23 U/L (13-61)
[2021-12-17 08:26] LABS: BILIRUBIN,TOTAL 0.7 mg/dL (0.2-1); TOT PROT 4.6 g/dl (6.4-8.2)
[2021-12-17 08:33] LABS: ALK PHOS 192 U/L (45-117); BLOOD UREA NITROGEN 108.5 mg/dL (7-18)
[2021-12-17] MEDS ORDERED: FUROSEMIDE 40 MG/4 ML INJECTABLE VIAL IVPUSH ONE (10:13)
[2021-12-17] MEDS: PANTOPRAZOLE SODIUM 40 MG VIAL IVPUSH SCH (10:14)
[2021-12-17] MEDS ORDERED: fentaNYL CITRATE 250 MCG/5 ML VIAL ONE (12:45)
[2021-12-17] MEDS: NOREPINEPHRINE D5W PREMIX 16,000 MCG/500 ML BAG IVPB SCH (21:21)
[2021-12-17] MEDS: FENTANYL NS IVPB 500 MCG/100 ML BAG IVPB SCH (21:22)
[2021-12-17] MEDS: LATANOPROST 0.005% OPHTH SOLN 2.5ML BOTTLE OU SCH (21:23)
[2021-12-17] MEDS: INSULIN (LEVEMIR) 100 UNITS/ML UNITS SQ SCH (21:38)
[2021-12-18] MEDS: MIDAZOLAM IN 0.9 % SOD.CHLORID 100 MG/100 ML PLAST..BAG IVPB SCH ×2 (01:16→16:56)
[2021-12-18] MEDS: PIPERACILLIN/TAZOB 2.25 GM 2.25 GM in DEXTROSE 5%-WATER - 50 ML IVPB SCH ×3 (01:16→18:45)
[2021-12-18] MEDS: HEPARIN NA (PORCINE) 5,000 UNITS/ML 1ML VIAL SQ SCH ×3 (06:35→21:56)
[2021-12-18] MEDS: INSULIN SLIDING SCALE (NOVOLOG) 1 VIAL SQ SCH ×4 (06:35→21:56)
[2021-12-18 07:49] LABS: HEMATOCRIT 24.3 % (35.4-49); HEMOGLOBIN 7.9 GM/dL (11.7-16.9); MCH 30.9 pg (25.7-33.7); MCHC 32.5 g/dl (32.0-35.9); MEAN CELL VOLUME 95.3 fl (80-96); MEAN PLT VOLUME 9.2 fl (7.5-11.1); PLATELET COUNT 339 10^3/uL (134-434); RBC 2.55 M/mm3 (4.00-5.60); RDW 14.7 % (11.9-15.9)
[2021-12-18 08:10] LABS: CHLORIDE 97 mmol/L (98-107); SODIUM 133 mmol/L (136-145)
[2021-12-18] MEDS: FENTANYL NS IVPB 500 MCG/100 ML BAG IVPB SCH ×2 (08:44→16:55)
[2021-12-18 08:57] LABS: ALBUMIN 1.6 g/dl (3.4-5.0); ANION GAP 14 MMOL/L (8-16); CALCIUM 7.2 mg/dL (8.5-10.1); CO2 22 mmol/L (21-32); MAGNESIUM 2.6 mg/dL (1.8-2.4)
[2021-12-18 08:59] LABS: GLUCOSE,RANDOM 324 mg/dL (74-106)
[2021-12-18 09:03] LABS: CREATININE 6.2 mg/dL (0.55-1.3); SGOT/AST 20 U/L (15-37); SGPT/ALT 19 U/L (13-61); TOT PROT 4.7 g/dl (6.4-8.2)
[2021-12-18 09:04] LABS: BILIRUBIN,TOTAL 0.4 mg/dL (0.2-1)
[2021-12-18 09:05] LABS: ALK PHOS 172 U/L (45-117)
[2021-12-18 09:07] LABS: BLOOD UREA NITROGEN 136.4 mg/dL (7-18)
[2021-12-18] MEDS: PANTOPRAZOLE SODIUM 40 MG VIAL IVPUSH SCH (09:30)
[2021-12-18] MEDS: HYDROCORTISONE SOD SUCCINATE 100 MG/2 ML VIAL IVPUSH SCH ×2 (09:30→21:57)
[2021-12-18 09:44] LABS: PHOSPHOROUS 8.5 mg/dL (2.5-4.9)
[2021-12-18] MEDS: NOREPINEPHRINE D5W PREMIX 16,000 MCG/500 ML BAG IVPB SCH ×2 (11:12→16:51)
[2021-12-18] MEDS ORDERED: SODIUM CHLORIDE 250 ML IV PRN (11:58)
[2021-12-18] MEDS ORDERED: ALBUMIN HUMAN 25% 12.5 GM/50 ML VIAL IV SCH (12:00)
[2021-12-18] MEDS ORDERED: PROPOFOL 1,000,000 MCG/100 ML VIAL ONE (12:42)
[2021-12-18] MEDS: PROPOFOL 1,000,000 MCG/100 ML VIAL IVPB SCH (12:47)
[2021-12-18] MEDS: ALBUMIN HUMAN 25% 12.5 GM/50 ML VIAL IV SCH ×4 (16:55→17:44)
[2021-12-18] MEDS ORDERED: EPOETIN ALFA-EPBX 10,000 UNIT/ML VIAL SQ ONE (17:00)
[2021-12-18] MEDS: LATANOPROST 0.005% OPHTH SOLN 2.5ML BOTTLE OU SCH (21:56)
[2021-12-18] MEDS: INSULIN (LEVEMIR) 100 UNITS/ML UNITS SQ SCH (21:58)
[2021-12-19] MEDS: PIPERACILLIN/TAZOB 2.25 GM 2.25 GM in DEXTROSE 5%-WATER - 50 ML IVPB SCH ×3 (02:49→17:17)
[2021-12-19] MEDS: HEPARIN NA (PORCINE) 5,000 UNITS/ML 1ML VIAL SQ SCH ×3 (06:49→22:18)
[2021-12-19] MEDS: MIDAZOLAM IN 0.9 % SOD.CHLORID 100 MG/100 ML PLAST..BAG IVPB SCH ×2 (06:50→15:00)
[2021-12-19] MEDS: INSULIN (LEVEMIR) 100 UNITS/ML UNITS SQ SCH ×2 (06:57→22:18)
[2021-12-19] MEDS: INSULIN SLIDING SCALE (NOVOLOG) 1 VIAL SQ SCH ×4 (06:58→22:18)
[2021-12-19 07:35] LABS: HEMATOCRIT 24.4 % (35.4-49); HEMOGLOBIN 8.1 GM/dL (11.7-16.9); MCH 31.4 pg (25.7-33.7); MCHC 33.2 g/dl (32.0-35.9); MEAN CELL VOLUME 94.4 fl (80-96); MEAN PLT VOLUME 8.5 fl (7.5-11.1); PLATELET COUNT 385 10^3/uL (134-434); RBC 2.59 M/mm3 (4.00-5.60); RDW 14.3 % (11.9-15.9); WHITE BLOOD COUNT 16.6 K/mm3 (4.0-10.0)
[2021-12-19 07:48] LABS: CALCIUM 7.3 mg/dL (8.5-10.1); MAGNESIUM 2.3 mg/dL (1.8-2.4)
[2021-12-19 07:50] LABS: ALBUMIN 1.8 g/dl (3.4-5.0)
[2021-12-19 07:52] LABS: PHOSPHOROUS 6.2 mg/dL (2.5-4.9)
[2021-12-19 07:53] LABS: BILIRUBIN,TOTAL 0.4 mg/dL (0.2-1); CREATININE 3.9 mg/dL (0.55-1.3)
[2021-12-19 07:54] LABS: BLOOD UREA NITROGEN 84.8 mg/dL (7-18)
[2021-12-19] MEDS: FENTANYL NS IVPB 500 MCG/100 ML BAG IVPB SCH ×2 (09:00→17:18)
[2021-12-19] MEDS ORDERED: FUROSEMIDE 40 MG/4 ML INJECTABLE VIAL IVPUSH ONE (09:39)
[2021-12-19] MEDS: PANTOPRAZOLE SODIUM 40 MG VIAL IVPUSH SCH (10:40)
[2021-12-19] MEDS: HYDROCORTISONE SOD SUCCINATE 100 MG/2 ML VIAL IVPUSH SCH ×2 (11:15→22:19)
[2021-12-19 11:55] LABS: ARTERIAL BLD GAS O2 SATURATION 97.7 % (95-98); ARTERIAL BLOOD GAS BASE EXCESS 2.8 mmol/L (-2-2); ARTERIAL BLOOD GAS PO2 103.8 mmHg (80-100); ARTERIAL BLOOD GAS pH 7.398 (7.350-7.450)
[2021-12-19 12:13] LABS: ALLENS TEST POSITIVE; VENT MODE A/C; VENT RATE 18
[2021-12-19] MEDS: NOREPINEPHRINE D5W PREMIX 16,000 MCG/500 ML BAG IVPB SCH (14:59)
[2021-12-19] MEDS: PROPOFOL 1,000,000 MCG/100 ML VIAL IVPB SCH (14:59)
[2021-12-19] MEDS: LATANOPROST 0.005% OPHTH SOLN 2.5ML BOTTLE OU SCH (22:19)
[2021-12-19] MEDS: DEXMEDETOMIDINE IN 0.9 % NACL 400 MCG/100 ML VIAL IVPB SCH (23:08)
[2021-12-20] MEDS: MIDAZOLAM IN 0.9 % SOD.CHLORID 100 MG/100 ML PLAST..BAG IVPB SCH (00:43)
[2021-12-20] MEDS: PIPERACILLIN/TAZOB 2.25 GM 2.25 GM in DEXTROSE 5%-WATER - 50 ML IVPB SCH ×3 (01:23→16:59)
[2021-12-20] MEDS: DEXMEDETOMIDINE IN 0.9 % NACL 400 MCG/100 ML VIAL IVPB SCH ×3 (03:29→21:56)
[2021-12-20] MEDS: HEPARIN NA (PORCINE) 5,000 UNITS/ML 1ML VIAL SQ SCH ×3 (06:07→21:56)
[2021-12-20] MEDS: INSULIN (LEVEMIR) 100 UNITS/ML UNITS SQ SCH ×2 (06:07→21:58)
[2021-12-20 06:08] LABS: ARTERIAL BLD GAS O2 SATURATION 98.7 % (95-98); ARTERIAL BLOOD GAS BASE EXCESS -0.8 mmol/L (-2-2); ARTERIAL BLOOD GAS PO2 130.9 mmHg (80-100); ARTERIAL BLOOD GAS pH 7.415 (7.350-7.450)
[2021-12-20] MEDS: INSULIN SLIDING SCALE (NOVOLOG) 1 VIAL SQ SCH ×4 (06:08→22:02)
[2021-12-20 06:16] LABS: VENT MODE A/C; VENT RATE 18
[2021-12-20 07:31] LABS: HEMOGLOBIN 8.7 GM/dL (11.7-16.9); MCH 31.6 pg (25.7-33.7); MCHC 33.3 g/dl (32.0-35.9); MEAN CELL VOLUME 94.9 fl (80-96); MEAN PLT VOLUME 9.2 fl (7.5-11.1); PLATELET COUNT 455 10^3/uL (134-434); RBC 2.74 M/mm3 (4.00-5.60); RDW 14.7 % (11.9-15.9); WHITE BLOOD COUNT 16.6 K/mm3 (4.0-10.0)
[2021-12-20 07:49] LABS: CALCIUM 7.2 mg/dL (8.5-10.1)
[2021-12-20 07:50] LABS: BLOOD UREA NITROGEN 92.6 mg/dL (7-18); MAGNESIUM 2.3 mg/dL (1.8-2.4)
[2021-12-20 07:53] LABS: CREATININE 4.5 mg/dL (0.55-1.3); PHOSPHOROUS 7.2 mg/dL (2.5-4.9)
[2021-12-20] MEDS: HYDROCORTISONE SOD SUCCINATE 100 MG/2 ML VIAL IVPUSH SCH (09:44)
[2021-12-20] MEDS: PANTOPRAZOLE SODIUM 40 MG VIAL IVPUSH SCH (09:44)
[2021-12-20] MEDS ORDERED: FUROSEMIDE 40 MG/4 ML INJECTABLE VIAL IVPUSH ONE (10:30)
[2021-12-20] MEDS ORDERED: SODIUM CHLORIDE 250 ML IV PRN (11:16)
[2021-12-20] MEDS: PROPOFOL 1,000,000 MCG/100 ML VIAL IVPB SCH (13:51)
[2021-12-20] MEDS: FENTANYL NS IVPB 500 MCG/100 ML BAG IVPB SCH (16:58)
[2021-12-20] MEDS: LATANOPROST 0.005% OPHTH SOLN 2.5ML BOTTLE OU SCH (21:56)
[2021-12-20] MEDS ORDERED: MIDAZOLAM HCL 5 MG/1 ML Single Dose Vial IVPUSH ONE (23:29)
[2021-12-20] MEDS ORDERED: MIDAZOLAM HCL 2 MG/2 ML SINGLE DOSE VIAL ONE (23:30)
[2021-12-21] MEDS ORDERED: FUROSEMIDE 40 MG/4 ML INJECTABLE VIAL ONE (00:03)
[2021-12-21] MEDS ORDERED: ACETAMINOPHEN INJECTION 100 ML IVPB ONE (00:05)
[2021-12-21] MEDS ORDERED: FUROSEMIDE 40 MG/4 ML INJECTABLE VIAL IVPUSH ONE (00:07)
[2021-12-21 00:30] LABS: HEMATOCRIT 29.3 % (35.4-49); HEMOGLOBIN 9.7 GM/dL (11.7-16.9); MCH 31.2 pg (25.7-33.7); MCHC 33.1 g/dl (32.0-35.9); MEAN CELL VOLUME 94.4 fl (80-96); MEAN PLT VOLUME 8.8 fl (7.5-11.1); PLATELET COUNT 703 10^3/uL (134-434); RDW 14.5 % (11.9-15.9); WHITE BLOOD COUNT 24.3 K/mm3 (4.0-10.0)
[2021-12-21 00:39] LABS: ARTERIAL BLD GAS O2 SATURATION 99.1 % (95-98); ARTERIAL BLOOD GAS PO2 171.6 mmHg (80-100); ARTERIAL BLOOD GAS pH 7.363 (7.350-7.450)
[2021-12-21 00:41] LABS: VENT MODE A/C; VENT RATE 18
[2021-12-21 00:47] LABS: CHLORIDE 99 mmol/L (98-107); SODIUM 139 mmol/L (136-145)
[2021-12-21 00:49] LABS: CALCIUM 7.8 mg/dL (8.5-10.1)
[2021-12-21 00:50] LABS: ALBUMIN 2.1 g/dl (3.4-5.0); ANION GAP 14 MMOL/L (8-16); CO2 25 mmol/L (21-32); GLUCOSE,RANDOM 217 mg/dL (74-106); MAGNESIUM 2.5 mg/dL (1.8-2.4)
[2021-12-21] MEDS: MIDAZOLAM IN 0.9 % SOD.CHLORID 100 MG/100 ML PLAST..BAG IVPB SCH (00:50)
[2021-12-21 00:52] LABS: SGOT/AST 34 U/L (15-37); SGPT/ALT 27 U/L (13-61)
[2021-12-21 00:53] LABS: CREATININE 5.1 mg/dL (0.55-1.3)
[2021-12-21 00:54] LABS: BILIRUBIN,TOTAL 0.4 mg/dL (0.2-1); TOT PROT 6.1 g/dl (6.4-8.2)
[2021-12-21 00:55] LABS: ALK PHOS 155 U/L (45-117)
[2021-12-21] MEDS ORDERED: ACETAMINOPHEN 1000 MG/100 ML BAG IVPB ONE (01:03)
[2021-12-21] MEDS: PIPERACILLIN/TAZOB 2.25 GM 2.25 GM in DEXTROSE 5%-WATER - 50 ML IVPB SCH ×3 (01:40→17:07)
[2021-12-21 03:15] LABS: ANISOCYTOSIS 1+; MACROCYTOSIS 1+
[2021-12-21] MEDS: INSULIN (LEVEMIR) 100 UNITS/ML UNITS SQ SCH ×2 (06:26→21:55)
[2021-12-21] MEDS: HEPARIN NA (PORCINE) 5,000 UNITS/ML 1ML VIAL SQ SCH ×3 (06:26→21:48)
[2021-12-21] MEDS: INSULIN SLIDING SCALE (NOVOLOG) 1 VIAL SQ SCH ×4 (06:27→21:55)
[2021-12-21] MEDS: FENTANYL NS IVPB 500 MCG/100 ML BAG IVPB SCH (07:00)
[2021-12-21 07:06] LABS: ARTERIAL BLD GAS O2 SATURATION 96.5 % (95-98); ARTERIAL BLOOD GAS BASE EXCESS -0.1 mmol/L (-2-2); ARTERIAL BLOOD GAS pH 7.392 (7.350-7.450)
[2021-12-21 07:16] LABS: VENT MODE PSV; VENT RATE 12
[2021-12-21 07:38] LABS: HEMATOCRIT 26.2 % (35.4-49); HEMOGLOBIN 8.6 GM/dL (11.7-16.9); MCH 31.2 pg (25.7-33.7); MCHC 32.8 g/dl (32.0-35.9); MEAN PLT VOLUME 8.9 fl (7.5-11.1); PLATELET COUNT 533 10^3/uL (134-434); RBC 2.76 M/mm3 (4.00-5.60); RDW 14.6 % (11.9-15.9); WHITE BLOOD COUNT 16.7 K/mm3 (4.0-10.0)
[2021-12-21 08:10] LABS: CHLORIDE 104 mmol/L (98-107); SODIUM 141 mmol/L (136-145)
[2021-12-21 08:17] LABS: SGPT/ALT 23 U/L (13-61)
[2021-12-21 08:18] LABS: ALBUMIN 1.8 g/dl (3.4-5.0)
[2021-12-21 08:19] LABS: BILIRUBIN,TOTAL 0.3 mg/dL (0.2-1); CALCIUM 7.5 mg/dL (8.5-10.1); TOT PROT 5.1 g/dl (6.4-8.2)
[2021-12-21 08:20] LABS: ANION GAP 13 MMOL/L (8-16); CO2 25 mmol/L (21-32); MAGNESIUM 2.7 mg/dL (1.8-2.4)
[2021-12-21 08:21] LABS: CREATININE 5.3 mg/dL (0.55-1.3); SGOT/AST 28 U/L (15-37)
[2021-12-21 08:30] LABS: ALK PHOS 124 U/L (45-117); BLOOD UREA NITROGEN 112.8 mg/dL (7-18); GLUCOSE,RANDOM 192 mg/dL (74-106)
[2021-12-21] MEDS ORDERED: HYDROCORTISONE SOD SUCCINATE 100 MG/2 ML VIAL IVPUSH SCH (10:00)
[2021-12-21] MEDS: PANTOPRAZOLE SODIUM 40 MG VIAL IVPUSH SCH (10:49)
[2021-12-21] MEDS: HYDROCORTISONE SOD SUCCINATE 100 MG/2 ML VIAL IVPUSH SCH (10:50)
[2021-12-21 11:51] LABS: ANISOCYTOSIS 1+; MACROCYTOSIS 0; OVALOCYTE 2+
[2021-12-21] MEDS ORDERED: DEXTROSE 50%-WATER - 25 GM/50 ML VIAL IVPUSH ONE (16:47)
[2021-12-21] MEDS ORDERED: DEXTROSE 50%-WATER 25 GM/50 ML DISP.SYRIN ONE (17:00)
[2021-12-21] MEDS: DEXMEDETOMIDINE IN 0.9 % NACL 400 MCG/100 ML VIAL IVPB SCH (21:48)
[2021-12-21] MEDS: LATANOPROST 0.005% OPHTH SOLN 2.5ML BOTTLE OU SCH (21:49)
[2021-12-22] MEDS: PIPERACILLIN/TAZOB 2.25 GM 2.25 GM in DEXTROSE 5%-WATER - 50 ML IVPB SCH ×2 (01:29→09:49)
[2021-12-22] MEDS: HEPARIN NA (PORCINE) 5,000 UNITS/ML 1ML VIAL SQ SCH ×3 (05:16→21:44)
[2021-12-22] MEDS: INSULIN SLIDING SCALE (NOVOLOG) 1 VIAL SQ SCH ×4 (06:45→21:49)
[2021-12-22] MEDS: INSULIN (LEVEMIR) 100 UNITS/ML UNITS SQ SCH ×2 (06:45→21:44)
[2021-12-22 08:24] LABS: HEMATOCRIT 26.3 % (35.4-49); HEMOGLOBIN 8.4 GM/dL (11.7-16.9); MCH 30.4 pg (25.7-33.7); PLATELET COUNT 648 10^3/uL (134-434); RBC 2.77 M/mm3 (4.00-5.60); RDW 14.8 % (11.9-15.9)
[2021-12-22 08:30] LABS: CHLORIDE 103 mmol/L (98-107); SODIUM 142 mmol/L (136-145)
[2021-12-22] MEDS ORDERED: FUROSEMIDE 40 MG/4 ML INJECTABLE VIAL IVPUSH ONE (08:34)
[2021-12-22 08:37] LABS: CALCIUM 7.7 mg/dL (8.5-10.1)
[2021-12-22 08:38] LABS: ALBUMIN 2.1 g/dl (3.4-5.0); ANION GAP 10 MMOL/L (8-16); CO2 29 mmol/L (21-32); GLUCOSE,RANDOM 125 mg/dL (74-106); MAGNESIUM 2.1 mg/dL (1.8-2.4)
[2021-12-22 08:40] LABS: SGOT/AST 32 U/L (15-37)
[2021-12-22 08:41] LABS: BILIRUBIN,TOTAL 0.4 mg/dL (0.2-1); CREATININE 3.5 mg/dL (0.55-1.3); PHOSPHOROUS 4.6 mg/dL (2.5-4.9); SGPT/ALT 23 U/L (13-61)
[2021-12-22 08:42] LABS: ALK PHOS 116 U/L (45-117)
[2021-12-22 08:44] LABS: TOT PROT 5.5 g/dl (6.4-8.2)
[2021-12-22 08:47] LABS: BLOOD UREA NITROGEN 65.3 mg/dL (7-18)
[2021-12-22] MEDS: PANTOPRAZOLE SODIUM 40 MG VIAL IVPUSH SCH (09:49)
[2021-12-22] MEDS: HYDROCORTISONE SOD SUCCINATE 100 MG/2 ML VIAL IVPUSH SCH (09:49)
[2021-12-22] MEDS ORDERED: PROPOFOL 1,000,000 MCG/100 ML VIAL ONE (10:38)
[2021-12-22] MEDS: PROPOFOL 1,000,000 MCG/100 ML VIAL IVPB SCH (10:52)
[2021-12-22] MEDS ORDERED: ACETAMINOPHEN 1000 MG/100 ML BAG IVPB ONE (13:33)
[2021-12-22] MEDS: DEXMEDETOMIDINE IN 0.9 % NACL 400 MCG/100 ML VIAL IVPB SCH (16:51)
[2021-12-22] MEDS: LATANOPROST 0.005% OPHTH SOLN 2.5ML BOTTLE OU SCH (21:45)
[2021-12-23] MEDS: DEXMEDETOMIDINE IN 0.9 % NACL 400 MCG/100 ML VIAL IVPB SCH ×3 (01:48→21:42)
[2021-12-23] MEDS: HEPARIN NA (PORCINE) 5,000 UNITS/ML 1ML VIAL SQ SCH ×3 (05:57→21:36)
[2021-12-23] MEDS: INSULIN SLIDING SCALE (NOVOLOG) 1 VIAL SQ SCH ×4 (06:26→21:41)
[2021-12-23] MEDS: INSULIN (LEVEMIR) 100 UNITS/ML UNITS SQ SCH ×2 (06:26→21:41)
[2021-12-23 06:53] LABS: HEMATOCRIT 23.4 % (35.4-49); HEMOGLOBIN 7.6 GM/dL (11.7-16.9); MCH 31.2 pg (25.7-33.7); MCHC 32.7 g/dl (32.0-35.9); MEAN CELL VOLUME 95.4 fl (80-96); PLATELET COUNT 575 10^3/uL (134-434); RBC 2.45 M/mm3 (4.00-5.60); RDW 14.9 % (11.9-15.9); WHITE BLOOD COUNT 15.2 K/mm3 (4.0-10.0)
[2021-12-23 07:11] LABS: CALCIUM 7.5 mg/dL (8.5-10.1)
[2021-12-23 07:13] LABS: ALBUMIN 1.9 g/dl (3.4-5.0); BLOOD UREA NITROGEN 71.6 mg/dL (7-18); MAGNESIUM 2.1 mg/dL (1.8-2.4)
[2021-12-23 07:15] LABS: CREATININE 4.1 mg/dL (0.55-1.3); PHOSPHOROUS 5.8 mg/dL (2.5-4.9)
[2021-12-23 07:16] LABS: BILIRUBIN,TOTAL 0.4 mg/dL (0.2-1); TOT PROT 5.1 g/dl (6.4-8.2)
[2021-12-23] MEDS: KCL 10 MEQ IVPB 10 MEQ/100 ML INFUS.BAG IVPB SCH ×2 (09:36→10:36)
[2021-12-23] MEDS: HYDROCORTISONE SOD SUCCINATE 100 MG/2 ML VIAL IVPUSH SCH (09:37)
[2021-12-23] MEDS: PANTOPRAZOLE SODIUM 40 MG VIAL IVPUSH SCH (09:37)
[2021-12-23] MEDS ORDERED: HYDROCORTISONE SOD SUCCINATE 100 MG/2 ML VIAL IVPUSH SCH (09:40)
[2021-12-23] MEDS: PROPOFOL 1,000,000 MCG/100 ML VIAL IVPB SCH (10:35)
[2021-12-23] MEDS ORDERED: SODIUM CHLORIDE 250 ML IV PRN (14:18)
[2021-12-23] MEDS: ALBUMIN HUMAN 25% 12.5 GM/50 ML VIAL IV SCH ×3 (17:30→17:32)
[2021-12-23] MEDS: LATANOPROST 0.005% OPHTH SOLN 2.5ML BOTTLE OU SCH (21:36)
[2021-12-23] MEDS ORDERED: MIDAZOLAM HCL 2 MG/2 ML SINGLE DOSE VIAL IVPUSH STA ×2 (22:54→23:12)
[2021-12-24] MEDS: INSULIN (LEVEMIR) 100 UNITS/ML UNITS SQ SCH ×2 (06:19→21:10)
[2021-12-24] MEDS: INSULIN SLIDING SCALE (NOVOLOG) 1 VIAL SQ SCH ×4 (06:19→21:10)
[2021-12-24] MEDS: HEPARIN NA (PORCINE) 5,000 UNITS/ML 1ML VIAL SQ SCH ×3 (06:19→21:25)
[2021-12-24 06:57] LABS: HEMATOCRIT 24.3 % (35.4-49); MCH 31.3 pg (25.7-33.7); MCHC 32.9 g/dl (32.0-35.9); MEAN PLT VOLUME 8.9 fl (7.5-11.1); PLATELET COUNT 561 10^3/uL (134-434); RBC 2.56 M/mm3 (4.00-5.60); RDW 14.9 % (11.9-15.9); WHITE BLOOD COUNT 13.5 K/mm3 (4.0-10.0)
[2021-12-24 07:17] LABS: CALCIUM 7.9 mg/dL (8.5-10.1)
[2021-12-24 07:18] LABS: MAGNESIUM 1.9 mg/dL (1.8-2.4)
[2021-12-24 07:21] LABS: CREATININE 2.8 mg/dL (0.55-1.3); PHOSPHOROUS 4.5 mg/dL (2.5-4.9)
[2021-12-24 07:22] LABS: BILIRUBIN,TOTAL 0.3 mg/dL (0.2-1)
[2021-12-24 07:23] LABS: TOT PROT 5.5 g/dl (6.4-8.2)
[2021-12-24 07:34] LABS: BLOOD UREA NITROGEN 38.7 mg/dL (7-18)
[2021-12-24] MEDS: AMINO ACIDS/PROTEIN HYDROLYS 30 ML LIQUID.PKT GT SCH (09:07)
[2021-12-24] MEDS: VITAMIN B COMP W-C 1 EA TABLET (NEPHRO-VITE) GT SCH (09:08)
[2021-12-24] MEDS: PANTOPRAZOLE SODIUM 40 MG VIAL IVPUSH SCH (09:08)
[2021-12-24] MEDS: PROPOFOL 1,000,000 MCG/100 ML VIAL IVPB SCH ×2 (09:08→14:50)
[2021-12-24] MEDS: HYDROCORTISONE SOD SUCCINATE 100 MG/2 ML VIAL IVPUSH SCH (09:08)
[2021-12-24] MEDS ORDERED: DEXTROSE 50%-WATER 25 GM/50 ML DISP.SYRIN ONE (11:08)
[2021-12-24] MEDS ORDERED: DEXTROSE 50%-WATER - 25 GM/50 ML VIAL IVPUSH ONE (11:08)
[2021-12-24] MEDS ORDERED: DEXTROSE 50%-WATER 25 GM/50 ML DISP.SYRIN IVPUSH PRN (14:27)
[2021-12-24] MEDS ORDERED: FUROSEMIDE 40 MG/4 ML INJECTABLE VIAL IVPUSH ONE (15:11)
[2021-12-24] MEDS: DEXMEDETOMIDINE IN 0.9 % NACL 400 MCG/100 ML VIAL IVPB SCH ×2 (17:37→21:25)
[2021-12-24] MEDS: LATANOPROST 0.005% OPHTH SOLN 2.5ML BOTTLE OU SCH (21:25)
[2021-12-25] MEDS: HEPARIN NA (PORCINE) 5,000 UNITS/ML 1ML VIAL SQ SCH ×3 (05:52→21:05)
[2021-12-25] MEDS: INSULIN SLIDING SCALE (NOVOLOG) 1 VIAL SQ SCH ×4 (06:18→22:32)
[2021-12-25] MEDS: INSULIN (LEVEMIR) 100 UNITS/ML UNITS SQ SCH ×2 (06:18→22:32)
[2021-12-25 07:13] LABS: HEMATOCRIT 27.1 % (35.4-49); HEMOGLOBIN 8.6 GM/dL (11.7-16.9); MCH 30.2 pg (25.7-33.7); MCHC 31.5 g/dl (32.0-35.9); MEAN CELL VOLUME 95.8 fl (80-96); MEAN PLT VOLUME 9.2 fl (7.5-11.1); PLATELET COUNT 573 10^3/uL (134-434); RBC 2.83 M/mm3 (4.00-5.60); RDW 15.2 % (11.9-15.9); WHITE BLOOD COUNT 11.5 K/mm3 (4.0-10.0)
[2021-12-25 07:26] LABS: ALBUMIN 2.2 g/dl (3.4-5.0); BLOOD UREA NITROGEN 49.1 mg/dL (7-18); CALCIUM 7.9 mg/dL (8.5-10.1)
[2021-12-25 07:29] LABS: CREATININE 3.3 mg/dL (0.55-1.3); PHOSPHOROUS 5.8 mg/dL (2.5-4.9)
[2021-12-25 07:31] LABS: BILIRUBIN,TOTAL 0.4 mg/dL (0.2-1); TOT PROT 5.9 g/dl (6.4-8.2)
[2021-12-25] MEDS: AMINO ACIDS/PROTEIN HYDROLYS 30 ML LIQUID.PKT GT SCH (08:36)
[2021-12-25] MEDS: VITAMIN B COMP W-C 1 EA TABLET (NEPHRO-VITE) GT SCH (10:04)
[2021-12-25] MEDS: HYDROCORTISONE SOD SUCCINATE 100 MG/2 ML VIAL IVPUSH SCH (10:05)
[2021-12-25] MEDS: PANTOPRAZOLE SODIUM 40 MG VIAL IVPUSH SCH (10:05)
[2021-12-25] MEDS: PROPOFOL 1,000,000 MCG/100 ML VIAL IVPB SCH (11:13)
[2021-12-25] MEDS ORDERED: FUROSEMIDE 40 MG/4 ML INJECTABLE VIAL IVPUSH ONE (12:30)
[2021-12-25] MEDS ORDERED: TRIMETHOBENZAMIDE HCL 200MG/2ML INJ IM ONE (13:39)
[2021-12-25] MEDS ORDERED: MIDAZOLAM IN 0.9 % SOD.CHLORID 100 MG/100 ML PLAST..BAG IVPB SCH (14:30)
[2021-12-25] MEDS ORDERED: DEXMEDETOMIDINE PREMIX 400 MCG/100 ML BAG IVPB ONE (16:06)
[2021-12-25] MEDS: AMINO ACIDS 4.25%/D5W 1,000 ML IV SCH (18:40)
[2021-12-25] MEDS: LATANOPROST 0.005% OPHTH SOLN 2.5ML BOTTLE OU SCH (21:06)
[2021-12-25] MEDS: FENTANYL NS IVPB 500 MCG/100 ML BAG IVPB SCH (23:50)
[2021-12-26] MEDS: INSULIN (LEVEMIR) 100 UNITS/ML UNITS SQ SCH ×2 (07:00→21:29)
[2021-12-26] MEDS: HEPARIN NA (PORCINE) 5,000 UNITS/ML 1ML VIAL SQ SCH ×3 (07:00→21:28)
[2021-12-26] MEDS: INSULIN SLIDING SCALE (NOVOLOG) 1 VIAL SQ SCH ×4 (07:01→21:30)
[2021-12-26 07:17] LABS: HEMATOCRIT 22.9 % (35.4-49); HEMOGLOBIN 7.4 GM/dL (11.7-16.9); MCH 30.9 pg (25.7-33.7); MCHC 32.2 g/dl (32.0-35.9); MEAN CELL VOLUME 95.9 fl (80-96); PLATELET COUNT 509 10^3/uL (134-434); RBC 2.38 M/mm3 (4.00-5.60); RDW 15.3 % (11.9-15.9); WHITE BLOOD COUNT 9.9 K/mm3 (4.0-10.0)
[2021-12-26 07:47] LABS: CALCIUM 7.4 mg/dL (8.5-10.1); MAGNESIUM 1.9 mg/dL (1.8-2.4)
[2021-12-26 07:48] LABS: BLOOD UREA NITROGEN 58.5 mg/dL (7-18)
[2021-12-26 07:50] LABS: CREATININE 3.6 mg/dL (0.55-1.3)
[2021-12-26 07:51] LABS: PHOSPHOROUS 5.9 mg/dL (2.5-4.9)
[2021-12-26 07:52] LABS: BILIRUBIN,TOTAL 0.4 mg/dL (0.2-1); TOT PROT 5.5 g/dl (6.4-8.2)
[2021-12-26] MEDS: FUROSEMIDE 40 MG/4 ML INJECTABLE VIAL IVPUSH SCH (10:33)
[2021-12-26] MEDS: PROPOFOL 1,000,000 MCG/100 ML VIAL IVPB SCH ×2 (10:34→11:14)
[2021-12-26] MEDS: PANTOPRAZOLE SODIUM 40 MG VIAL IVPUSH SCH (10:34)
[2021-12-26] MEDS: FENTANYL NS IVPB 500 MCG/100 ML BAG IVPB SCH (10:34)
[2021-12-26] MEDS: VITAMIN B COMP W-C 1 EA TABLET (NEPHRO-VITE) GT SCH (10:34)
[2021-12-26] MEDS: AMINO ACIDS 4.25%/D5W 1,000 ML IV SCH (17:44)
[2021-12-26] MEDS: LATANOPROST 0.005% OPHTH SOLN 2.5ML BOTTLE OU SCH (21:29)
[2021-12-27] MEDS: FENTANYL NS IVPB 500 MCG/100 ML BAG IVPB SCH ×4 (06:33→18:22)
[2021-12-27] MEDS: HEPARIN NA (PORCINE) 5,000 UNITS/ML 1ML VIAL SQ SCH ×3 (06:34→21:31)
[2021-12-27] MEDS: INSULIN (LEVEMIR) 100 UNITS/ML UNITS SQ SCH ×2 (06:35→21:39)
[2021-12-27] MEDS: INSULIN SLIDING SCALE (NOVOLOG) 1 VIAL SQ SCH ×4 (06:35→21:31)
[2021-12-27 06:53] LABS: BASO % 1.1 % (0-2.0); EOS % 4.7 % (0-4.5); HEMATOCRIT 24.2 % (35.4-49); HEMOGLOBIN 7.8 GM/dL (11.7-16.9); LYMPH % 9.4 % (8-40); MCH 31.1 pg (25.7-33.7); MCHC 32.2 g/dl (32.0-35.9); MEAN CELL VOLUME 96.7 fl (80-96); MEAN PLT VOLUME 8.8 fl (7.5-11.1); MONO % 8.6 % (3.8-10.2); NEUT % 76.2 % (42.8-82.8); PLATELET COUNT 528 10^3/uL (134-434); RDW 15.6 % (11.9-15.9)
[2021-12-27 07:23] LABS: CALCIUM 7.7 mg/dL (8.5-10.1)
[2021-12-27 07:24] LABS: ALBUMIN 2.1 g/dl (3.4-5.0); BLOOD UREA NITROGEN 69.4 mg/dL (7-18); MAGNESIUM 1.8 mg/dL (1.8-2.4)
[2021-12-27 07:27] LABS: CREATININE 3.9 mg/dL (0.55-1.3); PHOSPHOROUS 6.8 mg/dL (2.5-4.9)
[2021-12-27 07:28] LABS: TOT PROT 5.9 g/dl (6.4-8.2)
[2021-12-27 07:29] LABS: BILIRUBIN,TOTAL 0.4 mg/dL (0.2-1)
[2021-12-27] MEDS: FUROSEMIDE 40 MG/4 ML INJECTABLE VIAL IVPUSH SCH (10:07)
[2021-12-27] MEDS: PANTOPRAZOLE SODIUM 40 MG VIAL IVPUSH SCH (10:08)
[2021-12-27] MEDS: PROPOFOL 1,000,000 MCG/100 ML VIAL IVPB SCH ×3 (10:08→14:00)
[2021-12-27] MEDS: VITAMIN B COMP W-C 1 EA TABLET (NEPHRO-VITE) GT SCH (10:08)
[2021-12-27] MEDS ORDERED: FUROSEMIDE 40 MG/4 ML INJECTABLE VIAL IVPUSH ONE (14:00)
[2021-12-27] MEDS: AMINO ACIDS 4.25%/D5W 1,000 ML IV SCH (17:05)
[2021-12-27] MEDS: LATANOPROST 0.005% OPHTH SOLN 2.5ML BOTTLE OU SCH (22:28)
[2021-12-28] MEDS: FENTANYL NS IVPB 500 MCG/100 ML BAG IVPB SCH ×3 (05:24→18:32)
[2021-12-28] MEDS: HEPARIN NA (PORCINE) 5,000 UNITS/ML 1ML VIAL SQ SCH ×3 (05:24→22:26)
[2021-12-28 06:32] LABS: HEMATOCRIT 26.2 % (35.4-49); HEMOGLOBIN 8.4 GM/dL (11.7-16.9); MCH 31.2 pg (25.7-33.7); MCHC 32.3 g/dl (32.0-35.9); MEAN CELL VOLUME 96.7 fl (80-96); MEAN PLT VOLUME 8.8 fl (7.5-11.1); PLATELET COUNT 489 10^3/uL (134-434); RBC 2.71 M/mm3 (4.00-5.60); RDW 15.7 % (11.9-15.9); WHITE BLOOD COUNT 7.5 K/mm3 (4.0-10.0)
[2021-12-28 06:53] LABS: CALCIUM 7.7 mg/dL (8.5-10.1)
[2021-12-28 06:54] LABS: BLOOD UREA NITROGEN 76.6 mg/dL (7-18); MAGNESIUM 1.6 mg/dL (1.8-2.4)
[2021-12-28 06:57] LABS: CREATININE 4.1 mg/dL (0.55-1.3); PHOSPHOROUS 6.7 mg/dL (2.5-4.9)
[2021-12-28] MEDS: INSULIN SLIDING SCALE (NOVOLOG) 1 VIAL SQ SCH ×4 (07:13→22:27)
[2021-12-28] MEDS: INSULIN (LEVEMIR) 100 UNITS/ML UNITS SQ SCH ×2 (07:13→22:26)
[2021-12-28] MEDS ORDERED: MAGNESIUM SULFATE IN WATER 2 GM/50 ML IVPB IVPB ONE (07:49)
[2021-12-28] MEDS: POLYETHYLENE GLYCOL (HEALTHYLAX) 3350 17 GM PACKET PO SCH (10:07)
[2021-12-28] MEDS: VITAMIN B COMP W-C 1 EA TABLET (NEPHRO-VITE) GT SCH (10:07)
[2021-12-28] MEDS: FUROSEMIDE 40 MG/4 ML INJECTABLE VIAL IVPUSH SCH ×2 (10:07→14:02)
[2021-12-28] MEDS: SENNOSIDES 8.6MG TABLET (FP) PO SCH ×2 (10:08→22:27)
[2021-12-28] MEDS: PANTOPRAZOLE SODIUM 40 MG VIAL IVPUSH SCH (10:08)
[2021-12-28] MEDS: PROPOFOL 1,000,000 MCG/100 ML VIAL IVPB SCH ×2 (10:08→14:03)
[2021-12-28] MEDS: AMINO ACIDS 4.25%/D5W 1,000 ML IV SCH (17:48)
[2021-12-28] MEDS ORDERED: PROPOFOL 1,000,000 MCG/100 ML VIAL ONE (20:12)
[2021-12-28] MEDS: LATANOPROST 0.005% OPHTH SOLN 2.5ML BOTTLE OU SCH (22:27)
[2021-12-29] MEDS: FENTANYL NS IVPB 500 MCG/100 ML BAG IVPB SCH ×2 (00:15→09:06)
[2021-12-29] MEDS: INSULIN SLIDING SCALE (NOVOLOG) 1 VIAL SQ SCH ×4 (06:36→22:26)
[2021-12-29 06:55] LABS: HEMATOCRIT 22.3 % (35.4-49); HEMOGLOBIN 7.3 GM/dL (11.7-16.9); MCH 31.7 pg (25.7-33.7); MCHC 32.9 g/dl (32.0-35.9); MEAN CELL VOLUME 96.2 fl (80-96); MEAN PLT VOLUME 8.4 fl (7.5-11.1); PLATELET COUNT 391 10^3/uL (134-434); RBC 2.32 M/mm3 (4.00-5.60); RDW 15.2 % (11.9-15.9); WHITE BLOOD COUNT 7.2 K/mm3 (4.0-10.0)
[2021-12-29] MEDS: HEPARIN NA (PORCINE) 5,000 UNITS/ML 1ML VIAL SQ SCH ×3 (07:04→22:26)
[2021-12-29] MEDS: FUROSEMIDE 40 MG/4 ML INJECTABLE VIAL IVPUSH SCH ×2 (07:05→13:53)
[2021-12-29] MEDS: INSULIN (LEVEMIR) 100 UNITS/ML UNITS SQ SCH ×2 (07:05→22:26)
[2021-12-29 07:33] LABS: CALCIUM 7.7 mg/dL (8.5-10.1)
[2021-12-29 07:34] LABS: ALBUMIN 1.8 g/dl (3.4-5.0); BLOOD UREA NITROGEN 82.1 mg/dL (7-18); MAGNESIUM 1.8 mg/dL (1.8-2.4)
[2021-12-29 07:37] LABS: BILIRUBIN,TOTAL 0.3 mg/dL (0.2-1); CREATININE 4.1 mg/dL (0.55-1.3); PHOSPHOROUS 6.9 mg/dL (2.5-4.9)
[2021-12-29 07:39] LABS: TOT PROT 5.4 g/dl (6.4-8.2)
[2021-12-29] MEDS: POLYETHYLENE GLYCOL (HEALTHYLAX) 3350 17 GM PACKET PO SCH (09:05)
[2021-12-29] MEDS: SENNOSIDES 8.6MG TABLET (FP) PO SCH (09:05)
[2021-12-29] MEDS: VITAMIN B COMP W-C 1 EA TABLET (NEPHRO-VITE) GT SCH (09:05)
[2021-12-29] MEDS: PANTOPRAZOLE SODIUM 40 MG VIAL IVPUSH SCH (09:06)
[2021-12-29] MEDS: PROPOFOL 1,000,000 MCG/100 ML VIAL IVPB SCH ×3 (09:06→13:53)
[2021-12-29] MEDS: AMINO ACIDS 4.25%/D5W 1,000 ML IV SCH (17:29)
[2021-12-29] MEDS ORDERED: DEXTROSE 50%-WATER 25 GM/50 ML DISP.SYRIN IVPUSH ONE (17:41)
[2021-12-29] MEDS ORDERED: DEXTROSE 50%-WATER 25 GM/50 ML DISP.SYRIN ONE ×2 (17:43→22:16)
[2021-12-29] MEDS ORDERED: DEXTROSE 50%-WATER - 25 GM/50 ML VIAL IVPUSH PRN (22:07)
[2021-12-29] MEDS: LATANOPROST 0.005% OPHTH SOLN 2.5ML BOTTLE OU SCH (22:27)
[2021-12-30] MEDS: FENTANYL NS IVPB 500 MCG/100 ML BAG IVPB SCH ×2 (00:20→10:18)
[2021-12-30] MEDS: FUROSEMIDE 40 MG/4 ML INJECTABLE VIAL IVPUSH SCH ×2 (06:42→13:49)
[2021-12-30] MEDS: INSULIN SLIDING SCALE (NOVOLOG) 1 VIAL SQ SCH ×4 (06:44→22:35)
[2021-12-30] MEDS: INSULIN (LEVEMIR) 100 UNITS/ML UNITS SQ SCH ×2 (06:44→22:35)
[2021-12-30 07:30] LABS: HEMATOCRIT 25.5 % (35.4-49); HEMOGLOBIN 8.2 GM/dL (11.7-16.9); MCH 30.8 pg (25.7-33.7); MCHC 32.3 g/dl (32.0-35.9); MEAN CELL VOLUME 95.3 fl (80-96); MEAN PLT VOLUME 8.7 fl (7.5-11.1); PLATELET COUNT 401 10^3/uL (134-434); RBC 2.68 M/mm3 (4.00-5.60); RDW 15.2 % (11.9-15.9); WHITE BLOOD COUNT 7.6 K/mm3 (4.0-10.0)
[2021-12-30 07:56] LABS: CALCIUM 8.1 mg/dL (8.5-10.1)
[2021-12-30 07:57] LABS: ALBUMIN 1.9 g/dl (3.4-5.0); MAGNESIUM 1.8 mg/dL (1.8-2.4)
[2021-12-30 08:00] LABS: CREATININE 4.3 mg/dL (0.55-1.3); PHOSPHOROUS 7.1 mg/dL (2.5-4.9)
[2021-12-30 08:01] LABS: BILIRUBIN,TOTAL 0.4 mg/dL (0.2-1); TOT PROT 6.1 g/dl (6.4-8.2)
[2021-12-30] MEDS ORDERED: MAGNESIUM SULF 50% (8.12 MEQ/2 ML-1 GM VIAL) IVPB ONE (09:43)
[2021-12-30] MEDS ORDERED: METOCLOPRAMIDE HCL INJECTION 10 MG/2 ML VIAL IM ONE (09:45)
[2021-12-30] MEDS: PANTOPRAZOLE SODIUM 40 MG VIAL IVPUSH SCH (10:09)
[2021-12-30] MEDS: PROPOFOL 1,000,000 MCG/100 ML VIAL IVPB SCH (10:45)
[2021-12-30] MEDS ORDERED: ROCURONIUM BROMIDE 50 MG/5 ML VIAL ONE ×2 (12:34→13:27)
[2021-12-30] MEDS: METOCLOPRAMIDE HCL INJECTION 10 MG/2 ML VIAL IVPB SCH ×3 (13:12→22:35)
[2021-12-30] MEDS: VITAMIN B COMP W-C 1 EA TABLET (NEPHRO-VITE) GT SCH (13:13)
[2021-12-30] MEDS: POLYETHYLENE GLYCOL (HEALTHYLAX) 3350 17 GM PACKET PO SCH (13:13)
[2021-12-30] MEDS: COLLAGENASE CLOSTRIDIUM HIST. 30 GRAMS TUBE TP SCH (19:15)
[2021-12-30] MEDS: HEPARIN NA (PORCINE) 5,000 UNITS/ML 1ML VIAL SQ SCH (22:35)
[2021-12-30] MEDS: LATANOPROST 0.005% OPHTH SOLN 2.5ML BOTTLE OU SCH (22:35)
[2021-12-31] MEDS: AMINO ACIDS 4.25%/D5W 1,000 ML IV SCH ×2 (00:30→21:49)
[2021-12-31] MEDS: METOCLOPRAMIDE HCL INJECTION 10 MG/2 ML VIAL IVPB SCH ×4 (03:50→21:38)
[2021-12-31 07:30] LABS: CALCIUM 8.2 mg/dL (8.5-10.1)
[2021-12-31 07:31] LABS: BLOOD UREA NITROGEN 89.9 mg/dL (7-18); MAGNESIUM 1.6 mg/dL (1.8-2.4)
[2021-12-31 07:34] LABS: CREATININE 4.3 mg/dL (0.55-1.3); PHOSPHOROUS 6.2 mg/dL (2.5-4.9)
[2021-12-31 07:35] LABS: TOT PROT 6.5 g/dl (6.4-8.2)
[2021-12-31 07:36] LABS: BILIRUBIN,TOTAL 0.4 mg/dL (0.2-1)
[2021-12-31 07:40] LABS: HEMOGLOBIN 8.4 GM/dL (11.7-16.9); MCH 31.3 pg (25.7-33.7); MCHC 32.5 g/dl (32.0-35.9); MEAN CELL VOLUME 96.3 fl (80-96); MEAN PLT VOLUME 8.6 fl (7.5-11.1); PLATELET COUNT 174 10^3/uL (134-434); RDW 15.6 % (11.9-15.9); WHITE BLOOD COUNT 8.7 K/mm3 (4.0-10.0)
[2021-12-31] MEDS: HEPARIN NA (PORCINE) 5,000 UNITS/ML 1ML VIAL SQ SCH ×3 (07:43→21:38)
[2021-12-31] MEDS: INSULIN SLIDING SCALE (NOVOLOG) 1 VIAL SQ SCH ×4 (07:44→21:41)
[2021-12-31] MEDS: INSULIN (LEVEMIR) 100 UNITS/ML UNITS SQ SCH ×2 (07:44→21:39)
[2021-12-31] MEDS ORDERED: MAGNESIUM SULF 50% (8.12 MEQ/2 ML-1 GM VIAL) IVPB ONE (08:45)
[2021-12-31] MEDS: COLLAGENASE CLOSTRIDIUM HIST. 30 GRAMS TUBE TP SCH (09:29)
[2021-12-31] MEDS: PANTOPRAZOLE SODIUM 40 MG VIAL IVPUSH SCH (09:29)
[2021-12-31] MEDS: VITAMIN B COMP W-C 1 EA TABLET (NEPHRO-VITE) GT SCH (09:30)
[2021-12-31] MEDS: POLYETHYLENE GLYCOL (HEALTHYLAX) 3350 17 GM PACKET PO SCH (09:30)
[2021-12-31] MEDS ORDERED: FUROSEMIDE 40 MG/4 ML INJECTABLE VIAL IVPUSH SCH (10:00)
[2021-12-31] MEDS: PROPOFOL 1,000,000 MCG/100 ML VIAL IVPB SCH (18:14)
[2021-12-31] MEDS: LATANOPROST 0.005% OPHTH SOLN 2.5ML BOTTLE OU SCH (21:39)
[2022-01-01] MEDS: METOCLOPRAMIDE HCL INJECTION 10 MG/2 ML VIAL IVPB SCH ×4 (03:40→22:15)
[2022-01-01] MEDS: FUROSEMIDE 40 MG/4 ML INJECTABLE VIAL IVPUSH SCH ×2 (06:42→20:16)
[2022-01-01] MEDS: INSULIN (LEVEMIR) 100 UNITS/ML UNITS SQ SCH ×2 (06:42→22:17)
[2022-01-01] MEDS: HEPARIN NA (PORCINE) 5,000 UNITS/ML 1ML VIAL SQ SCH ×3 (06:42→22:16)
[2022-01-01] MEDS: INSULIN SLIDING SCALE (NOVOLOG) 1 VIAL SQ SCH ×4 (06:43→22:17)
[2022-01-01 07:00] LABS: HEMATOCRIT 23.8 % (35.4-49); HEMOGLOBIN 7.8 GM/dL (11.7-16.9); MCHC 32.8 g/dl (32.0-35.9); MEAN CELL VOLUME 94.7 fl (80-96); MEAN PLT VOLUME 8.5 fl (7.5-11.1); PLATELET COUNT 342 10^3/uL (134-434); RBC 2.52 M/mm3 (4.00-5.60); RDW 15.2 % (11.9-15.9); WHITE BLOOD COUNT 8.6 K/mm3 (4.0-10.0)
[2022-01-01 07:26] LABS: CALCIUM 8.4 mg/dL (8.5-10.1)
[2022-01-01 07:27] LABS: BLOOD UREA NITROGEN 92.3 mg/dL (7-18); MAGNESIUM 2.1 mg/dL (1.8-2.4)
[2022-01-01 07:30] LABS: CREATININE 4.4 mg/dL (0.55-1.3); PHOSPHOROUS 5.3 mg/dL (2.5-4.9)
[2022-01-01 07:31] LABS: BILIRUBIN,TOTAL 0.4 mg/dL (0.2-1)
[2022-01-01 07:32] LABS: TOT PROT 6.3 g/dl (6.4-8.2)
[2022-01-01] MEDS: AMINO ACIDS/PROTEIN HYDROLYS 30 ML LIQUID.PKT PO SCH (09:43)
[2022-01-01] MEDS: VITAMIN B COMP W-C 1 EA TABLET (NEPHRO-VITE) GT SCH (09:44)
[2022-01-01] MEDS: POLYETHYLENE GLYCOL (HEALTHYLAX) 3350 17 GM PACKET PO SCH (09:44)
[2022-01-01] MEDS: COLLAGENASE CLOSTRIDIUM HIST. 30 GRAMS TUBE TP SCH (09:45)
[2022-01-01] MEDS ORDERED: PANTOPRAZOLE SODIUM 40 MG VIAL IVPUSH SCH (10:00)
[2022-01-01] MEDS ORDERED: FUROSEMIDE 40 MG/4 ML INJECTABLE VIAL IVPUSH SCH (19:00)
[2022-01-01] MEDS: LATANOPROST 0.005% OPHTH SOLN 2.5ML BOTTLE OU SCH (22:20)
[2022-01-02] MEDS: METOCLOPRAMIDE HCL INJECTION 10 MG/2 ML VIAL IVPB SCH ×2 (03:18→10:10)
[2022-01-02] MEDS: HEPARIN NA (PORCINE) 5,000 UNITS/ML 1ML VIAL SQ SCH (07:11)
[2022-01-02] MEDS: INSULIN (LEVEMIR) 100 UNITS/ML UNITS SQ SCH ×2 (07:12→21:49)
[2022-01-02] MEDS: INSULIN SLIDING SCALE (NOVOLOG) 1 VIAL SQ SCH ×4 (07:12→21:48)
[2022-01-02] MEDS: AMINO ACIDS/PROTEIN HYDROLYS 30 ML LIQUID.PKT PO SCH (08:40)
[2022-01-02] MEDS ORDERED: FUROSEMIDE 40 MG/4 ML INJECTABLE VIAL IVPUSH SCH (10:00)
[2022-01-02] MEDS: POLYETHYLENE GLYCOL (HEALTHYLAX) 3350 17 GM PACKET PO SCH (10:58)
[2022-01-02] MEDS: VITAMIN B COMP W-C 1 EA TABLET (NEPHRO-VITE) GT SCH (10:58)
[2022-01-02] MEDS: FUROSEMIDE 40 MG TABLET (FP) PO SCH (10:58)
[2022-01-02] MEDS: PANTOPRAZOLE 20 MG TABLET PO SCH ×2 (10:59→21:50)
[2022-01-02] MEDS: COLLAGENASE CLOSTRIDIUM HIST. 30 GRAMS TUBE TP SCH (11:00)
[2022-01-02 12:44] LABS: EOS % 3.6 % (0-4.5); HEMATOCRIT 23.6 % (35.4-49); HEMOGLOBIN 7.9 GM/dL (11.7-16.9); MCH 31.7 pg (25.7-33.7); MCHC 33.5 g/dl (32.0-35.9); MEAN CELL VOLUME 94.5 fl (80-96); MONO % 9.6 % (3.8-10.2); NEUT % 72.8 % (42.8-82.8); PLATELET COUNT 283 10^3/uL (134-434); RBC 2.49 M/mm3 (4.00-5.60); RDW 14.9 % (11.9-15.9); WHITE BLOOD COUNT 8.8 K/mm3 (4.0-10.0)
[2022-01-02 13:05] LABS: ALBUMIN 2.1 g/dl (3.4-5.0); BLOOD UREA NITROGEN 98.1 mg/dL (7-18)
[2022-01-02 13:07] LABS: CALCIUM 8.6 mg/dL (8.5-10.1)
[2022-01-02] MEDS ORDERED: POTASSIUM CHLORIDE ORAL LIQUID 20 MEQ/15 ML NGT ONE (13:07)
[2022-01-02] MEDS ORDERED: POTASSIUM CHLORIDE ORAL LIQUID 20 MEQ/15 ML PO ONE (13:07)
[2022-01-02 13:09] LABS: CREATININE 4.2 mg/dL (0.55-1.3)
[2022-01-02 13:11] LABS: BILIRUBIN,TOTAL 0.6 mg/dL (0.2-1); TOT PROT 6.7 g/dl (6.4-8.2)
[2022-01-02] MEDS: FAMOTIDINE 40 MG/5 ML ORAL SUSPENSION PEG SCH ×2 (16:04→21:50)
[2022-01-02] MEDS ORDERED: POTASSIUM CHLORIDE TABS 10 MEQ TABLET.ER (FP) PO SCH (17:15)
[2022-01-02] MEDS: LATANOPROST 0.005% OPHTH SOLN 2.5ML BOTTLE OU SCH (21:51)
[2022-01-03] MEDS: INSULIN SLIDING SCALE (NOVOLOG) 1 VIAL SQ SCH ×4 (06:09→21:35)
[2022-01-03] MEDS: INSULIN (LEVEMIR) 100 UNITS/ML UNITS SQ SCH ×2 (06:10→21:34)
[2022-01-03] MEDS: POLYETHYLENE GLYCOL (HEALTHYLAX) 3350 17 GM PACKET PO SCH (09:07)
[2022-01-03] MEDS: FAMOTIDINE 40 MG/5 ML ORAL SUSPENSION PEG SCH ×2 (09:08→21:38)
[2022-01-03] MEDS: POTASSIUM CHLORIDE ORAL LIQUID 20 MEQ/15 ML PO SCH (09:10)
[2022-01-03] MEDS: VITAMIN B COMP W-C 1 EA TABLET (NEPHRO-VITE) GT SCH (09:10)
[2022-01-03] MEDS: FUROSEMIDE 40 MG TABLET (FP) PO SCH (09:10)
[2022-01-03] MEDS: PANTOPRAZOLE 20 MG TABLET PO SCH ×2 (09:11→21:37)
[2022-01-03] MEDS: AMINO ACIDS/PROTEIN HYDROLYS 30 ML LIQUID.PKT PO SCH (09:11)
[2022-01-03 10:30] LABS: CALCIUM 8.8 mg/dL (8.5-10.1)
[2022-01-03 10:31] LABS: ALBUMIN 2.2 g/dl (3.4-5.0); BLOOD UREA NITROGEN 101.8 mg/dL (7-18)
[2022-01-03 10:34] LABS: CREATININE 4.1 mg/dL (0.55-1.3)
[2022-01-03 10:36] LABS: BILIRUBIN,TOTAL 0.4 mg/dL (0.2-1)
[2022-01-03 10:37] LABS: HEMATOCRIT 25.8 % (35.4-49); HEMOGLOBIN 8.4 GM/dL (11.7-16.9); MCH 30.7 pg (25.7-33.7); MCHC 32.6 g/dl (32.0-35.9); MEAN CELL VOLUME 94.1 fl (80-96); MEAN PLT VOLUME 8.4 fl (7.5-11.1); PLATELET COUNT 282 10^3/uL (134-434); RBC 2.74 M/mm3 (4.00-5.60); RDW 15.2 % (11.9-15.9); WHITE BLOOD COUNT 6.4 K/mm3 (4.0-10.0)
[2022-01-03] MEDS: COLLAGENASE CLOSTRIDIUM HIST. 30 GRAMS TUBE TP SCH (11:36)
[2022-01-03 12:00] LABS: ANISOCYTOSIS 0; HELMET CELLS 0; HOWELL-JOLLY BODIES 0; MACROCYTOSIS 0; OVALOCYTE 0; ROULEAU 0; SICKELED CELLS 0; TARGET CELLS 0; TEAR DROP CELLS 0; TOXIC GRANULATION 0
[2022-01-03] MEDS: LATANOPROST 0.005% OPHTH SOLN 2.5ML BOTTLE OU SCH (21:38)
[2022-01-03] MEDS ORDERED: METOPROLOL TARTRATE 25 MG TABLET (FP) PO SCH (22:00)
[2022-01-04] MEDS: INSULIN SLIDING SCALE (NOVOLOG) 1 VIAL SQ SCH ×3 (06:37→18:58)
[2022-01-04] MEDS: INSULIN (LEVEMIR) 100 UNITS/ML UNITS SQ SCH (06:42)
[2022-01-04] MEDS ORDERED: METOPROLOL TARTRATE 25 MG TABLET (FP) PO SCH (08:39)
[2022-01-04] MEDS: POTASSIUM CHLORIDE ORAL LIQUID 20 MEQ/15 ML PO SCH (11:16)
[2022-01-04] MEDS: POLYETHYLENE GLYCOL (HEALTHYLAX) 3350 17 GM PACKET PO SCH (11:16)
[2022-01-04] MEDS: AMINO ACIDS/PROTEIN HYDROLYS 30 ML LIQUID.PKT PO SCH (11:16)
[2022-01-04] MEDS: FUROSEMIDE 40 MG TABLET (FP) PO SCH (11:16)
[2022-01-04] MEDS: VITAMIN B COMP W-C 1 EA TABLET (NEPHRO-VITE) GT SCH (11:16)
[2022-01-04] MEDS: COLLAGENASE CLOSTRIDIUM HIST. 30 GRAMS TUBE TP SCH (11:17)
[2022-01-04 12:38] LABS: HEMOGLOBIN 8.3 GM/dL (11.7-16.9); MCH 30.6 pg (25.7-33.7); MCHC 32.1 g/dl (32.0-35.9); MEAN CELL VOLUME 95.3 fl (80-96); MEAN PLT VOLUME 8.4 fl (7.5-11.1); PLATELET COUNT 278 10^3/uL (134-434); RBC 2.73 M/mm3 (4.00-5.60); RDW 15.3 % (11.9-15.9)
[2022-01-04 12:45] LABS: INR 1.04 (0.83-1.09)
[2022-01-04 13:00] LABS: CHLORIDE 103 mmol/L (98-107); SODIUM 140 mmol/L (136-145)
[2022-01-04 13:09] LABS: ALBUMIN 2.4 g/dl (3.4-5.0); CALCIUM 9.1 mg/dL (8.5-10.1)
[2022-01-04 13:10] LABS: ANION GAP 9 MMOL/L (8-16); CO2 28 mmol/L (21-32); GLUCOSE,RANDOM 271 mg/dL (74-106); MAGNESIUM 2.5 mg/dL (1.8-2.4)
[2022-01-04 13:12] LABS: CREATININE 4.2 mg/dL (0.55-1.3); SGOT/AST 14 U/L (15-37); SGPT/ALT 17 U/L (13-61)
[2022-01-04 13:14] LABS: BILIRUBIN,TOTAL 0.4 mg/dL (0.2-1); TOT PROT 7.2 g/dl (6.4-8.2)
[2022-01-04 13:15] LABS: ALK PHOS 86 U/L (45-117)
[2022-01-04] MEDS: FAMOTIDINE 40 MG/5 ML ORAL SUSPENSION PEG SCH (14:30)
[2022-01-04 14:41] LABS: ANISOCYTOSIS 0; MACROCYTOSIS 1+
[2022-01-04 20:17] VITALS: PULSE 67
[2022-01-04 21:13] VITALS: BP 170/79; RESP 21; TEMP 97.8
== END 2022-01-04 21:28 | DRG 4 ==
LOC: JER 11:46 → JERBED 12:21 → JICU 14:53 → J5S 01-01 08:09
PROVIDERS: ADMIT Internal Medicine Pulmonary Disease; ATTEND Internal Medicine
PROC: 5A1955Z Respiratory Ventilation, Greater than 96 Consecutive Hours (ICD-10-PCS; 2021-12-05)
PROC: 0BH17EZ Insertion of Endotracheal Airway into Trachea, Via Natural or Artificial Opening (ICD-10-PCS; 2021-12-05)
PROC: 02H633Z Insertion of Infusion Device into Right Atrium, Percutaneous Approach (ICD-10-PCS; 2021-12-08)
PROC: B548ZZA Ultrasonography of Superior Vena Cava, Guidance (ICD-10-PCS; 2021-12-08)
PROC: 05HN33Z Insertion of Infusion Device into Left Internal Jugular Vein, Percutaneous Approach (ICD-10-PCS; 2021-12-11)
PROC: B544ZZA Ultrasonography of Left Jugular Veins, Guidance (ICD-10-PCS; 2021-12-11)
PROC: 5A1D70Z Performance of Urinary Filtration, Intermittent, Less than 6 Hours Per Day (ICD-10-PCS; 2021-12-11)
PROC: 03HY32Z Insertion of Monitoring Device into Upper Artery, Percutaneous Approach (ICD-10-PCS; 2021-12-13)
PROC: 4A133B1 Monitoring of Arterial Pressure, Peripheral, Percutaneous Approach (ICD-10-PCS; 2021-12-13)
PROC: 4A133J1 Monitoring of Arterial Pulse, Peripheral, Percutaneous Approach (ICD-10-PCS; 2021-12-13)
PROC: 02HV33Z Insertion of Infusion Device into Superior Vena Cava, Percutaneous Approach (ICD-10-PCS; 2021-12-15)
PROC: B548ZZA Ultrasonography of Superior Vena Cava, Guidance (ICD-10-PCS; 2021-12-15)
PROC: 02HV33Z Insertion of Infusion Device into Superior Vena Cava, Percutaneous Approach (ICD-10-PCS; 2021-12-18)
PROC: B548ZZA Ultrasonography of Superior Vena Cava, Guidance (ICD-10-PCS; 2021-12-18)
PROC: 0B113F4 Bypass Trachea to Cutaneous with Tracheostomy Device, Percutaneous Approach (ICD-10-PCS; principal; 2021-12-30)
PROC: 0BJ08ZZ Inspection of Tracheobronchial Tree, Via Natural or Artificial Opening Endoscopic (ICD-10-PCS; 2021-12-30)
DX: A41.9 Sepsis, unspecified organism (principal); G93.41 Metabolic encephalopathy; J96.01 Acute respiratory failure with hypoxia; J69.0 Pneumonitis due to inhalation of food and vomit; R65.21 Severe sepsis with septic shock; N17.9 Acute kidney failure, unspecified; E87.2 Acidosis; K56.7 Ileus, unspecified; N18.4 Chronic kidney disease, stage 4 (severe); K21.9 Gastro-esophageal reflux disease without esophagitis; I12.9 Hypertensive chronic kidney disease with stage 1 through stage 4 chronic kidney disease, or unspecified chronic kidney disease; E11.22 Type 2 diabetes mellitus with diabetic chronic kidney disease; E11.40 Type 2 diabetes mellitus with diabetic neuropathy, unspecified; F32.A Depression, unspecified; H40.9 Unspecified glaucoma; I25.10 Atherosclerotic heart disease of native coronary artery without angina pectoris; Z79.4 Long term (current) use of insulin; E87.5 Hyperkalemia; D69.6 Thrombocytopenia, unspecified; I45.10 Unspecified right bundle-branch block; D64.9 Anemia, unspecified; E11.43 Type 2 diabetes mellitus with diabetic autonomic (poly)neuropathy; K31.84 Gastroparesis; E83.42 Hypomagnesemia
CPT/HCPCS: 0241U-QW; 36415; 36600; 70450-TC; 71045-TC-FY; 71275-TC; 72125-TC; 74019-TC-FY; 74174-TC; 74176-TC; 80048; 80053; 80307; 81003; 82010; 82272; 82550; 82553; 82803; 82962; 83036; 83605; 83735; 83935; 84100; 84484; 85025; 85027; 85610; 85730; 86038; 86803; 87040; 87070; 87077; 87086; 87186; 87205; 87324; 87340; 87449; 87493; 87899; 93005; 93010; 93306-TC; 94002; 97162-GP; 99291; 99292; C9803-CS; J1644; P9047; Q5106; Q9967; U0003; U0005